=== PATIENT | female | born 1960 | race Caucasian/White ===

== ENCOUNTER → 2017-09-19 10:20 | Outpatient (CLI) | payer MEDICARE, SELFPAY ==
[2017-09-19 11:00] LABS: Basophils % 0.7 % (0.1-2.0); Eosinophils # 0.2 K/mm3 (0.0-0.4); Eosinophils % 3.1 % (0.1-12.0); Hematocrit 38.7 % (37.0-47.0); Hemoglobin 12.8 g/dL (12.2-16.2); Lymphocytes # 0.5 K/mm3 (0.7-4.5); Lymphocytes % 9.8 K/mm3 (10-50); Mean Corpuscular HGB Conc 33.1 g/dL (31.8-35.4); Mean Corpuscular Hemoglobin 29.4 pg (27.0-31.2); Mean Corpuscular Volume 88.7 fl (81-99); Mean Platelet Volume 8.2 fl (7.4-10.4); Monocytes # 0.3 K/mm3 (0.1-1.0); Monocytes % 5.8 % (1.7-9.3); Neutrophils # 4.3 K/mm3 (1.8-7.8); Neutrophils % 80.6 % (37.0-80.0); Platelet Count 250 K/mm3 (142-424); Red Blood Count 4.37 M/mm3 (4.20-5.40); Red Cell Distribution Width 13.2 % (11.5-17.5); Reticulocyte % (Auto) 2.2 % (0.9-3.2); White Blood Count 5.3 K/mm3 (4.8-10.8)
== END ==
PROVIDERS: PCP Internal Medicine Adolescent Medicine; Visit Provider Internal Medicine
DX: D64.9 Anemia, unspecified (principal)
CPT/HCPCS: 36415; 85025; 85044

== ENCOUNTER → 2017-10-20 08:58 | Outpatient (CLI) | payer MEDICARE, SELFPAY ==
--- NOTE | 2017-10-20 09:51 | US_ITS ---
US abdomen complete HISTORY: Possible cirrhosis ITS.REASON: LUEKOPENIA, ANEMIA ORDERING PHYSICIAN: Jose Miller MD PATIENT AGE: 57 years COMPARISON: None FINDINGS: Study is somewhat limited due to patient's body habitus. The may be of further value if clinically warranted. PANCREAS:Pancreas is poorly demonstrated and may be better evaluated with CT. LIVER:No focal liver lesions demonstrated. Homogeneous echogenicity. No intrahepatic biliary ductal dilatation evident. There is appropriate directional blood flow within the portal vein. RIGHT KIDNEY:Unremarkable. Normal size and echogenicity. No hydronephrosis LEFT KIDNEY:Unremarkable. No hydronephrosis. Normal size and echogenicity. GALLBLADDER:Prior cholecystectomy. No ductal dilatation. Common bile duct is 2 mm AORTA:No evidence of aneurysmal dilatation. SPLEEN:Unremarkable. Normal size and echogenicity ASCITES:None demonstrated. IMPRESSION: Somewhat limited exam. Prior cholecystectomy. No ductal dilatation. Normal direction of portal blood flow with no evidence of portal vein enlargement. No acute finding. Please see above for detail. CT may be of further value if clinically warranted
== END ==
PROVIDERS: Family Provider Internal Medicine Adolescent Medicine; PCP Internal Medicine Adolescent Medicine; Visit Provider Internal Medicine Adolescent Medicine
DX: D72.819 Decreased white blood cell count, unspecified (principal); D64.9 Anemia, unspecified
CPT/HCPCS: 76700

== ENCOUNTER → 2017-11-16 09:25 | Outpatient (CLI) | payer MEDICARE, SELFPAY ==
[2017-11-16 09:50] LABS: Basophils % 0.5 % (0.1-2.0); Eosinophils # 0.2 K/mm3 (0.0-0.4); Hematocrit 38.1 % (37.0-47.0); Hemoglobin 12.5 g/dL (12.2-16.2); Lymphocytes # 0.6 K/mm3 (0.7-4.5); Lymphocytes % 11.4 K/mm3 (10-50); Mean Corpuscular HGB Conc 32.8 g/dL (31.8-35.4); Mean Corpuscular Hemoglobin 30.5 pg (27.0-31.2); Mean Corpuscular Volume 93.1 fl (81-99); Mean Platelet Volume 8.5 fl (7.4-10.4); Monocytes # 0.3 K/mm3 (0.1-1.0); Neutrophils # 3.9 K/mm3 (1.8-7.8); Neutrophils % 78.2 % (37.0-80.0); Platelet Count 242 K/mm3 (142-424); Red Cell Distribution Width 13.3 % (11.5-17.5)
[2017-11-16 09:55] LABS: Alanine Aminotransferase 32 U/L (12-78); Albumin Level 3.8 gm/dL (3.4-5.0); Albumin/Globulin Ratio 1.1 (1.1-1.8); Alkaline Phosphatase 87 U/L (46-116); Anion Gap 10.4 mEq/L (5-15); Aspartate Amino Transferase 15 U/L (15-37); Bilirubin,Direct 0.1 mg/dL (0.0-0.2); Bilirubin,Total 0.6 mg/dL (0.2-1.0); Blood Urea Nitrogen 10 mg/dL (7-18); Carbon Dioxide 30 mmol/L (21.0-32.0); Chloride 102 mmol/L (98-107); Creatinine,Serum 0.83 mg/dL (0.55-1.02); Estimated Glomerular Filt Rate 71 ml/min (>60); GFR (African American) 85 ML/MIN (>60); Globulin 3.6 gm/dl (1.3-3.2); Glucose 151 mg/dL (74-106); Potassium 4.4 mmoL/L (3.5-5.1); Sodium 138 mmol/L (136-145); Total Protein,Serum 7.4 gm/dL (6.4-8.2)
== END ==
PROVIDERS: Visit Provider Psychiatry & Neurology Neurology
DX: G35 Multiple sclerosis (principal)
CPT/HCPCS: 36415; 80053; 80076; 85025; 86480

== ENCOUNTER → 2018-02-02 08:27 | Outpatient (CLI) | payer MEDICARE, SELFPAY ==
[2018-02-02 09:11] LABS: Hemoglobin A1C 7.5 % (0.0-7.0)
[2018-02-02 10:05] LABS: Alanine Aminotransferase 32 U/L (12-78); Alkaline Phosphatase 94 U/L (46-116); Aspartate Amino Transferase 17 U/L (15-37); Bilirubin,Direct 0.2 mg/dL (0.0-0.2); Bilirubin,Indirect 0.4 mg/dL (0.0-0.9); Bilirubin,Total 0.6 mg/dL (0.2-1.0); Chol/HDL Ratio 4.4 (1-3.5); Cholesterol 225 mg/dL (140-200); HDL Cholesterol 51 mg/dL (29-89); LDL Cholesterol 106 mg/dL (0-130); Total Protein,Serum 7.2 gm/dL (6.4-8.2); Triglycerides 340 mg/dL (30-200); VLDL Cholesterol 68 mg/dL (0-40)
[2018-02-03 19:42] LABS: Microalbumin, Urine 4.5 ug/mL (Not Estab.)
== END ==
PROVIDERS: Visit Provider Nurse Practitioner Family
DX: E11.69 Type 2 diabetes mellitus with other specified complication (principal); E78.5 Hyperlipidemia, unspecified; Z01.89 Encounter for other specified special examinations
CPT/HCPCS: 36415; 80061; 80076; 82043; 83036

== ENCOUNTER → 2018-03-08 11:35 | Outpatient (CLI) | payer MEDICARE, SELFPAY ==
[2018-03-08 13:50] LABS: Alanine Aminotransferase 26 U/L (12-78); Albumin Level 3.8 gm/dL (3.4-5.0); Alkaline Phosphatase 90 U/L (46-116); Aspartate Amino Transferase 19 U/L (15-37); Bilirubin,Direct 0.1 mg/dL (0.0-0.2); Bilirubin,Indirect 0.4 mg/dL (0.0-0.9); Bilirubin,Total 0.5 mg/dL (0.2-1.0)
== END ==
PROVIDERS: Visit Provider Psychiatry & Neurology Neurology
DX: Z01.89 Encounter for other specified special examinations (principal)
CPT/HCPCS: 36415; 80076

== ENCOUNTER 2018-04-18 11:28 | Observation (INO) ==
--- NOTE | 2018-04-18 11:52 | Pharmacy Consult Notes ---
[facility] Pharmacy VTE Monitoring - Patient Demographics Admission date: 04/18/18 Report Date: 04/18/18 Time: 11:52 Allergies/Adverse Reactions: Patient Allergies No Known Allergies Allergy (Verified 02/02/18 09:47) - Prophylaxis VTE Prophylaxis Ordered?: Yes Types of VTE Prophylaxis: TEDS Knee High Location of Applied Device: Bilateral Lower Extremeties - VTE Diagnosis Confirmed Treatment or plan recommended: Continue Current Treatment
[2018-04-18 12:04] LABS: Eosinophils # 0.2 K/mm3 (0.0-0.4); Eosinophils % 3.9 % (0.1-12.0); Hematocrit 36.7 % (37.0-47.0); Hemoglobin 12.2 g/dL (12.2-16.2); Lymphocytes # 0.6 K/mm3 (0.7-4.5); Lymphocytes % 13.7 K/mm3 (10-50); Mean Corpuscular HGB Conc 33.4 g/dL (31.8-35.4); Mean Corpuscular Hemoglobin 29.4 pg (27.0-31.2); Mean Corpuscular Volume 88.3 fl (81-99); Mean Platelet Volume 8.1 fl (7.4-10.4); Monocytes # 0.3 K/mm3 (0.1-1.0); Monocytes % 6.6 % (1.7-9.3); Neutrophils % 74.8 % (37.0-80.0); Platelet Count 258 K/mm3 (142-424); Red Blood Count 4.16 M/mm3 (4.20-5.40); Red Cell Distribution Width 13.3 % (11.5-17.5)
--- NOTE | 2018-04-18 12:24 | Consult Report ---
History of Present Illness Consult date: 04/18/18 Requesting physician: Jose Miller Consult reason: chest pain, shortness of breath Chief complaint: CP, SOA Additional Medical History:: 1. History of Cardiac cath, 2003, no significant disease per patient Dilma marques, 04/2014, no ischemia with EF 58%. 2. DM, treated for 15 yrs 3. Multiple Sclerosis, treated for >10 yrs 4. Hyperlipidemia 5. History of anemia 6. Hypertension with diastolic dysfunction by echo, 2013 History of present illness: 58 yo WF with diabetes and multiple sclerosis was admitted for increasing chest pain with associated SOA over the last 6 wks. Symptoms described as a heaviness in the chest that can occur without direct association to activity. Symptoms may last up to 3 hrs and can include bilateral arm numbness. She does relate exertional SOA that may be worse over the last 6 wks. Denies associated nausea, vomiting or diarrhea. She does have occasional diarrhea unrelated to the CP/ SOA. Denies any history of CVA or seizure. Cardiology asked to evaluate. EKG today during chest pain shows NSR without acute EKG changes. [facility] History Medical History: Reports:: Diabetes Mellitus Type 2, Hyperlipidemia, MRSA (2011) Denies:: Cancer, Diabetes Mellitus Type 1 Other Medical History: Reports: Anemia Other Surgeries: Yes: Angiogram, Cholecystectomy, Amputation: No Fractures: No - *Social History Educational Level: Completed High School Smoking Status: Never smoker Alcohol Intake: never Substance Use Type: denies use Occupational Status: disabled Housing: house Household Members: spouse, children - Psychiatric History Expresses thoughts of harming self/others: None Suicide Plan Description: No Plan *Family Hx:: Diabetes, Hyperlipidemia, Heart Attack 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: 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 Meds Home Medications Medication Instructions Recorded Confirmed Type aspirin 81 mg tablet,delayed 81 mg PO QDAY 10/11/17 04/18/18 History release baclofen 20 mg tablet 20 mg PO TID 10/11/17 04/18/18 History bupropion HCl XL 300 mg 24 hr 300 mg PO QAM 10/11/17 04/18/18 History tablet, extended release citalopram 40 mg tablet 40 mg PO QDAY 10/11/17 04/18/18 History gabapentin 800 mg tablet 800 mg PO TID 10/11/17 04/18/18 History metformin 500 mg tablet 500 mg PO BID 10/11/17 04/18/18 History metoprolol tartrate 25 mg tablet 25 mg PO BID 10/11/17 04/18/18 History omeprazole 40 mg capsule,delayed 40 mg PO QDAY 10/11/17 04/18/18 History release simvastatin 20 mg tablet 20 mg PO QAM 10/11/17 04/18/18 History teriflunomide 14 mg tablet 14 mg PO ONCE 02/02/18 04/18/18 History Allergies Allergy/AdvReac Type Severity Reaction Status Date / Time No Known Allergies Allergy Verified 04/18/18 12:11 Review of Systems - *Cardiovascular Reports chest pain, Reports shortness of breath with activity - *Respiratory Reports shortness of breath with activity - *Gastrointestinal Denies abdominal pain - *Genitourinary Denies abnormal periods - *Musculoskeletal Denies joint pain - *Neurologic Denies behavioral changes Exam Vital signs and Labs for Last 24 Hours: Temp Pulse Resp BP Pulse Ox 97.9 F 71 20 132/78 96 04/18/18 11:54 04/18/18 11:54 04/18/18 11:54 04/18/18 11:54 04/18/18 11:54 Laboratory Results - last 24 hr 04/18/18 11:51: WBC 4.0 L, RBC 4.16 L, Hgb 12.2, Hct 36.7 L, MCV 88.3, MCH 29.4 , MCHC 33.4, RDW 13.3, Plt Count 258, MPV 8.1, Neut % (Auto) 74.8, Lymph % (Auto ) 13.7, [place] % (Auto) 6.6, Eos % (Auto) 3.9, Baso % (Auto) 1.0, Neut # (Auto) 3.0, Lymph # (Auto) 0.6 L, [place] # (Auto) 0.3, Eos # (Auto) 0.2, Baso # (Auto) 0.0 04/18/18 11:51: B-Natriuretic Peptide 90 I & O for Last 24 hours: Intake & Output 04/16/18 04/17/18 04/18/18 04/19/18 11:59 11:59 11:59 11:59 Weight 226 lb 9 oz - *Routine Neck Exam Absent: JVD, carotid bruit - *Routine Respiratory Exam Present: CTA bilaterally. Absent: rhonchi, wheezes - *Routine Cardiovascular Exam Present: RRR. Absent: murmur, gallop, rubs - *Routine Extremities Exam Absent: edema - *Routine Neurological Exam Present: alert, oriented X3, moving all extremities Assessment and Plan (1) Chest pain Status: Acute Category: Medical Code(s): R07.9 - Chest pain, unspecified (2) SOBOE (shortness of breath on exertion) Status: Acute Category: Medical Code(s): R06.02 - Shortness of breath (3) Diabetes Status: Acute Category: Medical Code(s): E11.9 - Type 2 diabetes mellitus without complications (4) Multiple sclerosis Status: Acute Category: Medical Code(s): G35 - Multiple sclerosis (5) Diastolic dysfunction without heart failure Status: Acute Category: Medical Code(s): I51.89 - Other ill-defined heart diseases - Assessment and plan all Dx Assessment and Plan for all problems:: 1. Chest pain in diabetic with normal EKG. BK score of 3 (recurrent chest pain , Daily ASA use, cardiac risk factors). 2. Will obtain serial cardiac enzymes, echo and continue beta megan along with ASA. 3. Add norvasc 5 mg daily for anti-anginal property. 4. Will schedule for lexiscan myoview in AM unless troponins return elevated then would proceed with cardiac cath.
[2018-04-18 13:44] LABS: Anion Gap 11.2 mEq/L (5-15); Blood Urea Nitrogen 11 mg/dL (7-18); Calcium 9.9 mg/dL (8.5-10.1); Carbon Dioxide 30 mmol/L (21.0-32.0); Chloride 102 mmol/L (98-107); Chol/HDL Ratio 4.6 (1-3.5); Cholesterol 227 mg/dL (140-200); Glucose 153 mg/dL (74-106); HDL Cholesterol 49 mg/dL (29-89); LDL Cholesterol 108 mg/dL (0-130); Potassium 4.2 mmoL/L (3.5-5.1); Sodium 139 mmol/L (136-145); Triglycerides 349 mg/dL (30-200); VLDL Cholesterol 70 mg/dL (0-40)
--- NOTE | 2018-04-18 13:47 | History & Physical Report ---
*Admission Date: 04/18/18 *Chief complaint: Chest pressure/pain *History of present illness: 58-year-old white female with significant cardiac risk factors including diabetes, hyperlipidemia and obesity who presented to my office with a chief complaint of chest pressure and feeling of a regular pulse rate over the past couple of weeks. In the office she complained of increasing shortness of air with exertion as well as intermittent somewhat atypical chest pressure. EKG was nondiagnostic but given her increasing symptomatology and second risk factors as well as her history of coronary atherosclerosis she was admitted to hospital for rule out [place] and cardiology consultation. [facility] History I have reviewed the patient's past medical history: Yes Medical History: Reports:: Diabetes Mellitus Type 2, Hyperlipidemia, MRSA (2011) Denies:: Cancer, Diabetes Mellitus Type 1 Other Medical History: Reports: Anemia Other Surgeries: Yes: Angiogram, Cholecystectomy, Amputation: No Fractures: No - *Social History Educational Level: Completed High School Smoking Status: Never smoker Alcohol Intake: never Substance Use Type: denies use Occupational Status: disabled Housing: house Household Members: spouse, children - Psychiatric History Expresses thoughts of harming self/others: None Suicide Plan Description: No Plan *Family Hx:: Diabetes, Hyperlipidemia, Heart Attack [employer] history: Ectopic Review of Systems - Review of Systems Review of systems:: pertinent systems reviewed and negative unless documented below - *Neurologic Denies behavioral changes Meds Home Medications Medication Instructions Recorded Confirmed Type aspirin 81 mg tablet,delayed 81 mg PO QDAY 10/11/17 04/18/18 History release baclofen 20 mg tablet 20 mg PO TID 10/11/17 04/18/18 History bupropion HCl XL 300 mg 24 hr 300 mg PO QAM 10/11/17 04/18/18 History tablet, extended release citalopram 40 mg tablet 40 mg PO QDAY 10/11/17 04/18/18 History gabapentin 800 mg tablet 800 mg PO TID 10/11/17 04/18/18 History metformin 500 mg tablet 500 mg PO BID 10/11/17 04/18/18 History metoprolol tartrate 25 mg tablet 25 mg PO BID 10/11/17 04/18/18 History omeprazole 40 mg capsule,delayed 40 mg PO QDAY 10/11/17 04/18/18 History release simvastatin 20 mg tablet 20 mg PO QAM 10/11/17 04/18/18 History teriflunomide 14 mg tablet 14 mg PO ONCE 02/02/18 04/18/18 History Allergies Allergy/AdvReac Type Severity Reaction Status Date / Time No Known Allergies Allergy Verified 04/18/18 12:11 Exam Vital signs and Labs for Last 24 Hours: Temp Pulse Resp BP Pulse Ox 97.9 F 71 20 132/78 96 04/18/18 11:54 04/18/18 11:54 04/18/18 11:54 04/18/18 11:54 04/18/18 11:54 Laboratory Results - last 24 hr 04/18/18 11:51: WBC 4.0 L, RBC 4.16 L, Hgb 12.2, Hct 36.7 L, MCV 88.3, MCH 29.4 , MCHC 33.4, RDW 13.3, Plt Count 258, MPV 8.1, Neut % (Auto) 74.8, Lymph % (Auto ) 13.7, [place] % (Auto) 6.6, Eos % (Auto) 3.9, Baso % (Auto) 1.0, Neut # (Auto) 3.0, Lymph # (Auto) 0.6 L, [place] # (Auto) 0.3, Eos # (Auto) 0.2, Baso # (Auto) 0.0 04/18/18 11:51: B-Natriuretic Peptide 90 I & O for Last 24 hours: Intake & Output 04/16/18 04/17/18 04/18/18 04/19/18 11:59 11:59 11:59 11:59 Weight 226 lb 9 oz - Constitutional no acute distress, obese - *Routine HEENT Exam Head: Present: normocephalic Eye: Present: EOMI, PERRL ENT: Present: mucous membranes moist, nares patent, TM's clear bilaterally - *Routine Neck Exam Present: supple. Absent: JVD, carotid bruit, thyromegaly - *Routine Respiratory Exam Present: CTA bilaterally. Absent: accessory muscle use, decreased breath sounds , prolonged expiratory phase - *Routine Cardiovascular Exam Present: RRR, Normal S1, Normal S2. Absent: murmur - *Routine Abdominal Exam Present: soft, normoactive bowel sounds - *Routine Extremities Exam Present: full ROM, pulses intact. Absent: cyanosis, clubbing, edema - *Routine Neurological Exam Present: alert, oriented X3, CN II-XII intact, moving all extremities, hearing grossly intact H&P: Result - Labs Labs: Short CBC 04/18/18 Range/Units 11:51 WBC 4.0 L (4.8-10.8) K/mm3 Hgb 12.2 (12.2-16.2) g/dL Hct 36.7 L (37.0-47.0) % Plt Count 258 (142-424) K/mm3 Assessment and Plan (1) Chest pain Current visit: Yes Status: Acute Category: Medical Code(s): R07.9 - Chest pain, unspecified (2) SOBOE (shortness of breath on exertion) Current visit: Yes Status: Acute Category: Medical Code(s): R06.02 - Shortness of breath (3) Diabetes Current visit: Yes Status: Acute Category: Medical Code(s): E11.9 - Type 2 diabetes mellitus without complications (4) Multiple sclerosis Current visit: Yes Status: Acute Category: Medical Code(s): G35 - Multiple sclerosis (5) Diastolic dysfunction without heart failure Current visit: Yes Status: Acute Category: Medical Code(s): I51.89 - Other ill-defined heart diseases - Assessment and plan all Dx Assessment and Plan for all problems:: Admit to hospital, rule out for [place], follow-up with cardiology. Anticipate stress testing.
--- NOTE | 2018-04-19 14:20 | Progress Note ---
Internal Medicine - PN: Subj *Date: 04/19/18 *Time: 12:45 Interval history: Patient continues to have intermittent chest pressure. ALert and oriented x3. Rate and rhythm regular. No LE edema. No JVD. Abdomen soft and nontender. Anterior lung mcelroy clear. Exam Vital signs and Labs for Last 24 Hours: Temp Pulse Resp BP Pulse Ox 98.0 F 77 16 171/78 97 04/19/18 12:00 04/19/18 12:00 04/19/18 12:00 04/19/18 12:00 04/19/18 12:00 Laboratory Results - last 24 hr 04/18/18 15:04: Troponin I < 0.02 04/18/18 17:50: Troponin I < 0.02 I & O for Last 24 hours: Intake & Output 04/17/18 04/18/18 04/19/18 04/20/18 11:59 11:59 11:59 11:59 Intake Total 1140 / 1140 Balance 1140 / 1140 Weight 226 lb 9 oz 222 lb 1 oz Assessment and Plan (1) Chest pain Current visit: Yes Status: Acute Category: Medical Code(s): R07.9 - Chest pain, unspecified (2) SOBOE (shortness of breath on exertion) Current visit: Yes Status: Acute Category: Medical Code(s): R06.02 - Shortness of breath (3) Diabetes Current visit: Yes Status: Acute Category: Medical Code(s): E11.9 - Type 2 diabetes mellitus without complications (4) Multiple sclerosis Current visit: Yes Status: Acute Category: Medical Code(s): G35 - Multiple sclerosis (5) Diastolic dysfunction without heart failure Current visit: Yes Status: Acute Category: Medical Code(s): I51.89 - Other ill-defined heart diseases - Assessment and plan all Dx Assessment and Plan for all problems:: GXT was abnormal. Plan for C tomorrow.
--- NOTE | 2018-04-19 14:43 | Progress Note ---
Subjective Date: 04/19/18 Time: 14:40 Principal diagnosis: chest pain Interval history: No chest pain overnight. Junior myoview abnormal with LV dilatation during stress without ischemia. Discussed results and recommendation for [facility] with patient and . All questions answered and pt agrees to proceed. Exam Vital signs and Labs for Last 24 Hours: Temp Pulse Resp BP Pulse Ox 98.0 F 77 16 171/78 97 04/19/18 12:00 04/19/18 12:00 04/19/18 12:00 04/19/18 12:00 04/19/18 12:00 Laboratory Results - last 24 hr 04/18/18 15:04: Troponin I < 0.02 04/18/18 17:50: Troponin I < 0.02 I & O for Last 24 hours: Intake & Output 04/17/18 04/18/18 04/19/18 04/20/18 11:59 11:59 11:59 11:59 Intake Total 1140 / 1140 Balance 1140 / 1140 Weight 226 lb 9 oz 222 lb 1 oz - *Routine Respiratory Exam Present: CTA bilaterally - *Routine Cardiovascular Exam Present: RRR Progress Note: A&P (1) Chest pain Status: Acute Current Visit: Yes (2) SOBOE (shortness of breath on exertion) Status: Acute Current Visit: Yes (3) Diabetes Status: Acute Current Visit: Yes (4) Multiple sclerosis Status: Acute Current Visit: Yes (5) Diastolic dysfunction without heart failure Status: Acute Current Visit: Yes Assessment and Plan for All Diagnoses:: LHC tomorrow. Some nausea after stress. Will give IV Zofran.
--- NOTE | 2018-04-19 15:08 | Cardiology Report ---
PROCEDURE: 2-D M-mode and color Doppler study INDICATIONS FOR THE TEST: Chest pain X COPD Heart Murmur Tobacco Smoking Palpitations Fatigue Syncope Edema HypertensionXXDiabetes MellitusX Rheumatic Fever SOB DOEXObesity HyperlipidemiaX Family History HDX Additional History PATIENT INFORMATION HEIGHT: 71 WEIGHT:226 GENDER: Female B/P:132/78 2-D/M-MODE INTERPRETATION: 2-D MEASUREMENTS OBSERVED VALUES IN CMS Right Ventricular Dimension (RVDd) 3.1 Interventricular Septum (Thickness)(IVsd) 1.1 Left Ventricular Internal Dimensions(LVIDd) 3.6 Left Ventricular Posterior Wall (Thickness)(LVPWd) 1.1 Aortic Root 3.0 Aortic Cusp Separation 2.3 Left Atrial Dimensions (LAD) 3.8 2D 1. Technically difficult study because of the patient's factor and poor acoustic windows 2. Left atrium is mildly enlarged, left ventricle is normal size, there is mild concentric left ventricular hypertrophy, visually estimated ejection fraction 55% with no obvious regional wall motion abnormality. 3. The right atrium and right ventricle are mildly enlarged with normal contractility. 4. The aortic valve, mitral and tricuspid valvular grossly normal. 5. The pulmonic valve is poorly visualized. 6. No significant pericardial effusion noted. DOPPLER INTERROGATION: Doppler interrogation of the aortic, mitral and tricuspid valvular presence of mild mitral and tricuspid regurgitation, tricuspid and jet velocity is insufficient for acquisition of the right ventricular systolic pressure, diastolic parameters are inconclusive. CONCLUSION: 1. Mildly enlarged left atrium, normal left ventricular size, mild concentric left ventricular hypertrophy, visually estimated ejection fraction 55% with no obvious regional wall motion abnormality, diastolic parameters are inconclusive. 2. Mildly enlarged right ventricle with normal contractility. 3. Mild mitral and tricuspid regurgitation 4. No significant pericardial effusion noted.
--- NOTE | 2018-04-20 08:12 | Progress Note ---
Internal Medicine - PN: Subj *Date: 04/20/18 *Time: 08:10 Interval history: Slept well, no problems overnight, no chest pain. Exam Vital signs and Labs for Last 24 Hours: Temp Pulse Resp BP Pulse Ox 98.1 F 73 18 114/65 95 04/20/18 07:39 04/20/18 07:39 04/20/18 07:39 04/20/18 07:39 04/20/18 07:39 I & O for Last 24 hours: Intake & Output 04/17/18 04/18/18 04/19/18 04/20/18 11:59 11:59 11:59 11:59 Intake Total 1140 / 1140 1465 / 1465 Output Total 650 / 650 Balance 1140 / 1140 815 / 815 Weight 226 lb 9 oz 222 lb 1 oz 217 lb 6 oz - Constitutional no acute distress, obese - *Routine HEENT Exam Head: Present: normocephalic Eye: Present: EOMI ENT: Present: mucous membranes moist - Routine Chest/Breast/Axilla Exam Breast: Absent: tenderness - *Routine Respiratory Exam Present: CTA bilaterally. Absent: accessory muscle use - *Routine Cardiovascular Exam Present: RRR, Normal S1, Normal S2. Absent: murmur - *Routine Abdominal Exam Present: soft, normoactive bowel sounds. Absent: tenderness - *Routine Extremities Exam Present: full ROM. Absent: cyanosis, clubbing, edema Assessment and Plan (1) Chest pain Current visit: Yes Status: Acute Category: Medical Code(s): R07.9 - Chest pain, unspecified (2) SOBOE (shortness of breath on exertion) Current visit: Yes Status: Acute Category: Medical Code(s): R06.02 - Shortness of breath (3) Diabetes Current visit: Yes Status: Acute Category: Medical Code(s): E11.9 - Type 2 diabetes mellitus without complications (4) Multiple sclerosis Current visit: Yes Status: Acute Category: Medical Code(s): G35 - Multiple sclerosis (5) Diastolic dysfunction without heart failure Current visit: Yes Status: Acute Category: Medical Code(s): I51.89 - Other ill-defined heart diseases - Assessment and plan all Dx Assessment and Plan for all problems:: Heart catheterization today. Probable discharge this afternoon. Palpitation workup is negative so far. Consider discharge in with 48 hour Holter monitor
--- NOTE | 2018-04-20 13:08 | Discharge Summary ---
General - General Admission date:: 04/18/18 Discharge date: 04/20/18 HPI HPI: 58-year-old white female with significant cardiac risk factors including diabetes, hyperlipidemia and obesity who presented to my office with a chief complaint of chest pressure and feeling of a regular pulse rate over the past couple of weeks. In the office she complained of increasing shortness of air with exertion as well as intermittent somewhat atypical chest pressure. EKG was nondiagnostic but given her increasing symptomatology and second risk factors as well as her history of coronary atherosclerosis she was admitted to hospital for rule out [place] and cardiology consultation. Hospital Course Hospital Course: Patient was admitted to hospital, ruled out for myocardial infarction. EKG and echocardiogram were nondiagnostic, however stress test showed equivocal readings consistent with "balanced ischemia." Because of this finding as well as her significant risk factor she would subjected to left heart catheterization which fortunately showed no evidence of amenable cardiac disease to stenting. She will be discharged home today with post-cath instructions and her regular medications. Because of her history of palpitations we will send her home with a 48 hour Holter monitor and follow-up in my office as scheduled. Objective Vital signs: Temp Pulse Resp BP Pulse Ox 98.1 F 71 16 122/85 98 04/20/18 12:25 04/20/18 12:25 04/20/18 12:25 04/20/18 12:25 04/20/18 12:25 - *Routine HEENT Exam Head: Present: normocephalic, atraumatic Eye: Present: EOMI, PERRL ENT: Present: mucous membranes moist - *Routine Respiratory Exam Present: CTA bilaterally. Absent: accessory muscle use, decreased breath sounds - *Routine Cardiovascular Exam Present: RRR, Normal S1, Normal S2. Absent: murmur - *Routine Abdominal Exam Present: soft, normoactive bowel sounds - *Routine Extremities Exam Present: full ROM. Absent: cyanosis, clubbing, edema DS: Diagnosis - Discharge Diagnosis (1) Chest pain Status: Resolved (2) SOBOE (shortness of breath on exertion) Status: Chronic (3) Diabetes Status: Chronic (4) Multiple sclerosis Status: Chronic (5) Diastolic dysfunction without heart failure Status: Chronic (6) Palpitation Status: Acute (7) Obesity (BMI 30.0-34.9) Status: Chronic Discharge Plan - Patient Discharge Instructions ACTIVITY: Continue current activity DIET: continue same diet, diabetic diet Additional Instructions: 48 hour Holter monitor on discharge, diagnosis palpitations - Follow up Plan Follow up with: Geovanna Wolfe APRN [Nurse Practitioner] - 04/26/18 Disposition: Home, Self-Senior Care Medications: Home Medications Medication Instructions Recorded Confirmed Type aspirin 81 mg tablet,delayed 81 mg PO DAILY 10/11/17 04/19/18 History release baclofen 20 mg tablet 20 mg PO TID 10/11/17 04/18/18 History bupropion HCl XL 300 mg 24 hr 300 mg PO QAM 10/11/17 04/18/18 History tablet, extended release citalopram 40 mg tablet 40 mg PO DAILY 10/11/17 04/19/18 History gabapentin 800 mg tablet 800 mg PO TID 10/11/17 04/18/18 History metoprolol tartrate 25 mg tablet 25 mg PO BID 10/11/17 04/18/18 History omeprazole 40 mg capsule,delayed 40 mg PO DAILY 10/11/17 04/19/18 History release simvastatin 20 mg tablet 20 mg PO QAM 10/11/17 04/18/18 History teriflunomide 14 mg tablet 14 mg PO DAILY 02/02/18 04/19/18 History Ascorbate Calcium [Vitamin C] 1,000 mg PO DAILY 04/19/18 04/19/18 History Biotin 5,000 mcg SL DAILY 04/19/18 04/19/18 History Cholecalciferol (Vitamin D3) 1,000 unit PO DAILY 04/19/18 04/19/18 History [Vitamin D3 1,000 Unit Cap] Cyanocobalamin (Vitamin B-12) 1,000 mcg PO DAILY 04/19/18 04/19/18 History [Vitamin B-12 1000mcg Tablet] Ferrous Sulfate [Ferrous Sulfate 325 mg PO DAILY 04/19/18 04/19/18 History 325mg Tablet] Folic Acid/Mv,Iron,Min [Centrum 1 each PO DAILY 04/19/18 04/19/18 History Chewable Tablet] Metformin HCl 1,000 mg PO BID 04/19/18 04/19/18 History Modafinil 100 mg PO DAILY 04/19/18 04/19/18 History Prescriptions/Medication Reconciliation: Continue metoprolol tartrate 25 mg tablet 25 mg PO BID omeprazole 40 mg capsule,delayed release 40 mg PO DAILY bupropion HCl XL 300 mg 24 hr tablet, extended release 300 mg PO QAM citalopram 40 mg tablet 40 mg PO DAILY baclofen 20 mg tablet 20 mg PO TID gabapentin 800 mg tablet 800 mg PO TID aspirin 81 mg tablet,delayed release 81 mg PO DAILY simvastatin 20 mg tablet 20 mg PO QAM teriflunomide 14 mg tablet 14 mg PO DAILY Ascorbate Calcium [Vitamin C] 1,000 mg PO DAILY Biotin 5,000 mcg SL DAILY Cholecalciferol (Vitamin D3) [Vitamin D3 1,000 Unit Cap] 1,000 unit PO DAILY Cyanocobalamin (Vitamin B-12) [Vitamin B-12 1000mcg Tablet] 1,000 mcg PO DAILY Ferrous Sulfate [Ferrous Sulfate 325mg Tablet] 325 mg PO DAILY Folic Acid/Mv,Iron,Min [Centrum Chewable Tablet] 1 each PO DAILY Metformin HCl 1,000 mg PO BID Modafinil 100 mg PO DAILY
== END 2018-04-20 15:09 | disposition home or self-care (01) ==
LOC: 2ND
PROVIDERS: ADMIT Internal Medicine Adolescent Medicine; ATTEND Internal Medicine Adolescent Medicine

== ENCOUNTER → 2018-05-10 13:12 | Outpatient (CLI) | payer MEDICARE, SELFPAY ==
--- NOTE | 2018-05-10 13:14 | CT_ITS ---
CT chest wo/w con HISTORY: Chest pain, chest heaviness ITS.REASON: chest pain ORDERING PHYSICIAN: Rylan Wills MD PATIENT AGE: 58 years COMPARISON: None Technique: Axial images obtained without and with contrast. 75 mL's of Isovue-370 . Sagittal and coronal reformats. All CT scans at the facility use one or more dose reduction, viz: automated exposure control, ma/kV adjustment per patient size (including targeted exams where dose is matched to indication, i.e. head), or iterative reconstruction technique. FINDINGS: No mediastinal or hilar mass or adenopathy. Unenhanced images demonstrate Coronary artery calcifications . No evidence of aortic aneurysm or dissection. No evidence of pulmonary embolus. A calcified granuloma is present in the right upper lobe. No suspicious pulmonary nodules. No infiltrates or effusions. The great vessels have an unremarkable appearance as does the proximal aspect of the celiac and superior mesenteric arteries. Upper abdominal images show prior gastric sleeve surgery of the stomach. There are degenerative changes of the lower thoracic spine. No acute bony anomalies. IMPRESSION: Essentially negative CT chest without and with contrast aside from coronary artery calcifications
[2018-05-10 13:53] LABS: Blood Urea Nitrogen 9 mg/dL (7-18); Creatinine,Serum 0.92 mg/dL (0.55-1.02); Estimated Glomerular Filt Rate 62 ml/min (>60); GFR (African American) 76 ML/MIN (>60)
--- NOTE | 2018-05-10 14:14 | HMH.ITSHM ---
MODAFINNIL AUBAGIO,OMEPRAZOLE,GABAPENTIN,METFORMIN BLACLOFEN METOPROLOL,BUPRION XL,CITALORARM ASPIRIN,MULTI VIT IRON BIOTIN TRIPLE FLESX
== END ==
PROVIDERS: Family Provider Internal Medicine Adolescent Medicine; PCP Internal Medicine Adolescent Medicine; Visit Provider Internal Medicine
DX: E11.9 Type 2 diabetes mellitus without complications (principal); E66.9 Obesity, unspecified; G35 Multiple sclerosis; R00.2 Palpitations; R06.00 Dyspnea, unspecified; R07.89 Other chest pain
CPT/HCPCS: 36415; 71270; 82565; 84520; Q9967

== ENCOUNTER 2018-07-23 09:52 | Outpatient (CLI) | payer MEDICARE, SELFPAY ==
[2018-07-23 09:56] VITALS: BMI 31.5
[2018-07-23 10:34] VITALS: BP 125/85; PULSE 63; RESP 18; TEMP 36.6; O2SAT 99
[2018-07-23 11:04] VITALS: BP 122/78; PULSE 68; RESP 18; O2SAT 98
[2018-07-23 11:15] VITALS: BP 123/79; PULSE 64; RESP 18; O2SAT 98
== END 2018-07-23 11:15 | disposition home or self-care (01) ==
LOC: INF 09:52
PROVIDERS: Visit Provider Psychiatry & Neurology Neurology
DX: G35 Multiple sclerosis (principal)
CPT/HCPCS: 96365

== ENCOUNTER 2018-07-24 10:00 | Outpatient (CLI) | payer MEDICARE, SELFPAY ==
[2018-07-24 10:00] VITALS: BP 128/69; PULSE 68; RESP 20; TEMP 36.9; O2SAT 96
[2018-07-24 10:50] VITALS: BP 126/74; PULSE 68; RESP 20; TEMP 36.9; O2SAT 96
== END 2018-07-24 10:50 | disposition home or self-care (01) ==
LOC: INF 10:00
PROVIDERS: Visit Provider Psychiatry & Neurology Neurology
DX: G35 Multiple sclerosis (principal)
CPT/HCPCS: 96365

== ENCOUNTER 2018-07-25 09:38 | Outpatient (CLI) | payer MEDICARE, SELFPAY ==
[2018-07-25 10:00] VITALS: BP 155/66; PULSE 66; RESP 19; TEMP 36.3; O2SAT 99
[2018-07-25 10:30] VITALS: BP 171/88; PULSE 68; RESP 18
[2018-07-25 10:45] VITALS: BP 182/88; PULSE 68; RESP 18
== END 2018-07-25 10:45 | disposition home or self-care (01) ==
LOC: INF 09:38
PROVIDERS: Visit Provider Psychiatry & Neurology Neurology
DX: G35 Multiple sclerosis (principal)
CPT/HCPCS: 96365

== ENCOUNTER → 2019-02-12 09:48 | Outpatient (CLI) | payer MEDICARE, SELFPAY ==
[2019-02-12 11:02] LABS: Basophils % 0.8 % (0.1-2.0); Eosinophils # 0.1 K/mm3 (0.0-0.4); Eosinophils % 3.2 % (0.1-12.0); Hematocrit 36.5 % (37.0-47.0); Hemoglobin 12.4 g/dL (12.2-16.2); Lymphocytes # 0.4 K/mm3 (0.7-4.5); Lymphocytes % 13.6 % (10-50); Mean Corpuscular HGB Conc 33.9 g/dL (31.8-35.4); Mean Corpuscular Hemoglobin 29.7 pg (27.0-31.2); Mean Corpuscular Volume 87.6 fl (81-99); Mean Platelet Volume 8.1 fl (7.4-10.4); Monocytes # 0.2 K/mm3 (0.1-1.0); Monocytes % 5.3 % (1.7-9.3); Neutrophils # 2.4 K/mm3 (1.8-7.8); Neutrophils % 77.1 % (37.0-80.0); Platelet Count 236 K/mm3 (142-424); Red Blood Count 4.17 M/mm3 (4.20-5.40); Red Cell Distribution Width 12.8 % (11.5-17.5); White Blood Count 3.1 K/mm3 (4.8-10.8)
[2019-02-12 11:50] LABS: Alanine Aminotransferase 25 U/L (12-78); Albumin Level 3.7 gm/dL (3.4-5.0); Albumin/Globulin Ratio 1.3 (1.1-1.8); Alkaline Phosphatase 84 U/L (46-116); Anion Gap 12.9 mEq/L (5-15); Aspartate Amino Transferase 14 U/L (15-37); Bilirubin,Total 0.6 mg/dL (0.2-1.0); Blood Urea Nitrogen 12 mg/dL (7-18); Calcium 9.2 mg/dL (8.5-10.1); Carbon Dioxide 29 mmol/L (21.0-32.0); Chloride 106 mmol/L (98-107); Chol/HDL Ratio 6.3 (1-3.5); Cholesterol 282 mg/dL (140-200); Estimated Glomerular Filt Rate 73 ml/min (>60); GFR (African American) 89 ML/MIN (>60); Globulin 2.9 gm/dl (1.3-3.2); Glucose 164 mg/dL (74-106); HDL Cholesterol 45 mg/dL (29-89); LDL Cholesterol 186 mg/dL (0-130); Potassium 4.9 mmoL/L (3.5-5.1); Sodium 143 mmol/L (136-145); Total Protein,Serum 6.6 gm/dL (6.4-8.2); Triglycerides 255 mg/dL (30-200); VLDL Cholesterol 51 mg/dL (0-40)
[2019-02-12 12:38] LABS: Hemoglobin A1C 6.7 % (0.0-7.0)
[2019-02-15 06:24] LABS: Vitamin B12 >2000 pg/mL (232-1245); Vitamin D 25 Hydroxy 94.8 ng/mL (30.0-100.0)
== END ==
PROVIDERS: Visit Provider Nurse Practitioner Family
DX: E11.69 Type 2 diabetes mellitus with other specified complication (principal); E78.5 Hyperlipidemia, unspecified; E53.8 Deficiency of other specified B group vitamins; E55.9 Vitamin D deficiency, unspecified; Z79.84 Long term (current) use of oral hypoglycemic drugs
CPT/HCPCS: 36415; 80053; 80061; 82607; 82652; 83036; 85025

== ENCOUNTER → 2019-04-12 08:46 | Outpatient (CLI) | payer MEDICARE, SELFPAY ==
--- NOTE | 2019-04-12 08:50 | MM_ITS ---
MM Dig screening mamm BI w/CAD CAD Screening COMPARISON: Digital mammograms with CAD 03/29/2016 and 03/28/2017 INDICATION: There is a history of breast cancer patient maternal great-grandmother diagnosed after menopause TECHNIQUE: Standard CC and MLO images were obtained. R2 CAD reviewed. FINDINGS: The breasts are composed primarily of fat with minimal scattered fibro glandular densities in each breast. There are multiple microcalcifications in each breast most of which appear to be cutaneous. There is no suspicious lesion and there are no suspicious microcalcifications. IMPRESSION: Fibrofatty parenchyma with no suspicious lesion seen BI-RADS Category: 2 Benign Finding(s) RECOMMENDED FOLLOW-UP: 1YR - 1 YEAR FOLLOW-UP (A letter has been sent to the patient regarding results of the study.)
--- NOTE | 2019-04-12 08:50 | XR_ITS ---
XR DEXA axial skeleton HISTORY: ITS.REASON: ASYMPTOMATIC POSTMENOPAUSAL STATE ORDERING PHYSICIAN: Linda Fraire APRN PATIENT AGE: 58 years COMPARISON: None FINDINGS: The BMD measured at the left femoral neck is 1.209 g/cm squared with a T score of 1.2. This is considered normal according to the World Health Organization criteria. Fracture risk is low. IMPRESSION: Normal bone density. Suggest follow-up exam April 2021.
== END ==
PROVIDERS: PCP Internal Medicine Adolescent Medicine; Visit Provider Nurse Practitioner Family
DX: Z12.31 Encounter for screening mammogram for malignant neoplasm of breast (principal); Z78.0 Asymptomatic menopausal state
CPT/HCPCS: 77067; 77080

== ENCOUNTER → 2020-02-14 16:22 | Outpatient (CLI) | payer MEDICARE, SELFPAY ==
[2020-02-14 16:54] LABS: Basophils # 0.1 K/mm3 (0-0.2); Basophils % 1.1 % (0.1-2.0); Eosinophils # 0.2 K/mm3 (0.0-0.4); Eosinophils % 4.5 % (0.1-12.0); Hematocrit 36.8 % (37.0-47.0); Hemoglobin 12.9 g/dL (12.2-16.2); Lymphocytes # 0.7 K/mm3 (0.7-4.5); Lymphocytes % 16.5 % (10-50); Mean Corpuscular HGB Conc 35.1 g/dL (31.8-35.4); Mean Corpuscular Hemoglobin 31.1 pg (27.0-31.2); Mean Corpuscular Volume 88.6 fl (81-99); Mean Platelet Volume 8.9 fl (7.4-10.4); Monocytes # 0.3 K/mm3 (0.1-1.0); Monocytes % 6.3 % (1.7-9.3); Neutrophils % 71.7 % (37.0-80.0); Platelet Count 201 K/mm3 (142-424); Red Blood Count 4.16 M/mm3 (4.20-5.40); Red Cell Distribution Width 13.4 % (11.5-17.5); White Blood Count 4.2 K/mm3 (4.8-10.8)
[2020-02-14 17:05] LABS: Chloride 106 mmol/L (98-107); Potassium 4.7 mmoL/L (3.5-5.1); Sodium 141 mmol/L (136-145)
[2020-02-14 17:07] LABS: Blood Urea Nitrogen 12 mg/dl (7-17); Estimated Glomerular Filt Rate 85 ml/min (>60); GFR (African American) 103 ML/MIN (>60)
[2020-02-14 17:08] LABS: Alanine Aminotransferase 32 U/L (12-78); Albumin Level 4.2 g/dl (3.5-5.0); Albumin/Globulin Ratio 1.5 (1.1-1.8); Alkaline Phosphatase 76 U/L (38-126); Anion Gap 8.7 mEq/L (5-15); Aspartate Amino Transferase 32 U/L (14-36); Bilirubin,Total 0.4 mg/dl (0.2-1.3); Calcium 9.8 mg/dl (8.4-10.2); Carbon Dioxide 31 mmol/L (22.0-30.0); Globulin 2.8 g/dL (1.3-3.2); Glucose 149 mg/dl (74-100); Lipase 26 U/L (23-300)
[2020-02-18 15:36] LABS: H. pylori Breath Test Negative (Negative)
== END ==
PROVIDERS: Visit Provider Internal Medicine Adolescent Medicine
DX: E11.69 Type 2 diabetes mellitus with other specified complication (principal); E78.5 Hyperlipidemia, unspecified; Z79.84 Long term (current) use of oral hypoglycemic drugs; Z79.899 Other long term (current) drug therapy
CPT/HCPCS: 36415; 80053; 83013; 83690; 85025

== ENCOUNTER → 2020-10-09 09:48 | Outpatient (CLI) | payer MEDICARE, SELFPAY ==
--- NOTE | 2020-10-09 | CA_ITS ---
APPROVED REPORT EXAM: Comprehensive 2D, Doppler, and color-flow Echocardiogram Housing Case Manager: Marilia Woodward CRT Ht: 5 ft 11 in Wt: 222lbs BSA: 2.20 BP: 139/72 mmHg Indications: Chest Pain, Shortness of Breath, Obesity, Peripheral Edema, Hyperlipidemia, Hypertension/HDD 2D Dimensions LVOT 2.08 cm (M/F) 1.5-2.5 M-Mode Dimensions RVDd 3.69 cm (0.9-2.6) LA Diam 3.69 cm (1.9-4.0) LVDd 4.94 cm (3.5-5.7) Ao Diam 3.35 cm (2.0-3.7) LVDs 3.00 cm (3.5-5.7) IVSd 1.37 cm (0.6-1.1) PWd 0.72 cm (0.6-1.1) EF (Teich) 69.60% FS 39.30% EDV (Teich) 115.00 mL ESV (Teich) 35.00 mL LV Diastology E Decel Time 247.00 (160-240 msec) E/A Ratio 0.83 MED E' 7.10 (< 7 cm/sec) MED A' 10.20 cm/s E'/MED E' Ratio 7.24 (>14) LAT E' 9.30 (<10 cm/sec) LAT A' 9.30 cm/s E/LAT E' Ratio 5.53 (>14) Aortic Valve AO Peak GR. 3.70 mmHg Mitral Valve MV A Velocity 62.00 (40-130 cm/s) E/A Ratio 0.83 MV Decel. Time 247.00 (160-240 ms) Pulmonary Valve PV Peak Velocity 35.00 (50-150 cm/s) Tricuspid Valve TR P. Velocity 255.00 cm/s RAP Estimate 10.00 mmHg RVSP 36.10 mmHg Left Ventricle Left atrium is mildly enlarged, left ventricle is normal size, mild concentric left ventricular hypertrophy, visually estimated ejection fraction 55% with no regional wall motion abnormality, diastolic parameters are inconclusive. Right Ventricle Right atrium and right ventricle are mildly enlarged with normal contractility. Aortic Valve Aortic valve is minimally thickened and fibrosed, there is no aortic stenosis or aortic insufficiency. Mitral Valve Mitral valve is grossly normal, there is mild mitral regurgitation. Tricuspid Valve Tricuspid valve is grossly normal, there is mild tricuspid regurgitation, tricuspid regurgitation jet velocity is inadequate for calculation of the right ventricular systolic pressure. Pulmonic Valve Pulmonic valve is poorly visualized. Great Vessels Aortic root is normal size. Pericardium No significant pericardial effusion noted. Conclusion 1. Mild biatrial enlargement, normal left ventricular size, mild concentric left ventricular hypertrophy, visually estimated ejection fraction 55% with no regional wall motion abnormality, diastolic parameters are inconclusive. 2. Mildly enlarged right ventricle with normal contractility. 3. Thickened and calcified aortic valve without aortic stenosis or aortic insufficiency. 4. Mild mitral and tricuspid regurgitation. 5. No significant pericardial effusion noted. Electronically signed by : Miguel Ángel Loco, 10/09/2020 16:51:08
--- NOTE | 2020-10-09 10:06 | MM_ITS ---
PROCEDURE: MM DIG SCREENING MAMM BI W/CAD Referring Doctor: Jose Miller Patient Age:60Y CLINICAL INDICATION: SCREENING 60-year-old but no hormones, no new complaints. Family history maternal great grandmother with breast cancer. The COMPARISON: MG DIGMAMMS MAMMOGRAM SCREEN-FLOOR INSPECTOR N/C from 08/01/2001 MG DIGMAMMS MAMMOGRAM SCREEN-FLOOR INSPECTOR N/C from 10/07/2009 MG DMSB DIGITAL MAMM-SCREEN BILATERAL from 11/29/2011 MG DMSB DIG MAMM-SCREEN DESTINY from 03/29/2016 MG DMSB DIG MAMM-SCREEN DESTINY W/CAD from 03/28/2017 MG MM DIG SCREENING MAMM BI W/CAD from 04/12/2019 TECHNIQUE: Standard CC and MLO images were obtained. R2 CAD reviewed. Bilateral digital breast tomosynthesis included. FINDINGS: Minimal residual fibroglandular elements. Moderate diffuse fatty replacement. Scattered small punctate calcifications bilaterally appear quite scattered and benign in character. No significant change. No new dominant or suspicious mass. Left breast-no new areas of concern. Stable mammogram. Follow-up 1 year recommended Right breast-no new areas of significant concern Minor area deep lateral breast on CC view reflects overlapping shadow as it dissipates on tomosynthesis views and MLO view IMPRESSION: Overall stable mammogram no significant new areas of concern. Bilateral follow-up 1 year recommended and would be encouraged BI-RAD Category: 2 Benign Finding(s) FOLLOW-UP: 1YR 1 Year Follow-up (A letter has been sent to the patient regarding results of the study.) Dictated by: Law Du MD 10/14/2020 11:58 Law Du MD in [place] 10/14/2020 11:58
[2020-10-09 10:20] LABS: Basophils % 1.1 % (0.1-2.0); Eosinophils # 0.1 K/mm3 (0.0-0.4); Hematocrit 38.4 % (37.0-47.0); Hemoglobin 12.8 g/dL (12.2-16.2); Lymphocytes # 0.5 K/mm3 (0.7-4.5); Lymphocytes % 15.5 % (10-50); Mean Corpuscular HGB Conc 33.2 g/dL (31.8-35.4); Mean Corpuscular Hemoglobin 30.3 pg (27.0-31.2); Mean Corpuscular Volume 91.2 fl (81-99); Mean Platelet Volume 9.2 fl (7.4-10.4); Monocytes # 0.2 K/mm3 (0.1-1.0); Monocytes % 6.4 % (1.7-9.3); Neutrophils # 2.3 K/mm3 (1.8-7.8); Platelet Count 205 K/mm3 (142-424); Red Blood Count 4.21 M/mm3 (4.20-5.40); Red Cell Distribution Width 13.8 % (11.5-17.5); White Blood Count 3.2 K/mm3 (4.8-10.8)
[2020-10-09 10:25] LABS: Creatinine,Urine Random 37 mg/dL (Not Estab.); Hemoglobin A1C 6.7 % (4.0-6.0)
[2020-10-09 10:36] LABS: Alanine Aminotransferase 17 U/L (12-78); Albumin Level 4.3 g/dl (3.5-5.0); Albumin/Globulin Ratio 1.5 (1.1-1.8); Alkaline Phosphatase 67 U/L (38-126); Anion Gap 9.8 mEq/L (5-15); Aspartate Amino Transferase 24 U/L (14-36); Bilirubin,Total 0.5 mg/dl (0.2-1.3); Blood Urea Nitrogen 9 mg/dl (7-17); Calcium 10.2 mg/dl (8.4-10.2); Carbon Dioxide 32 mmol/L (22.0-30.0); Chloride 104 mmol/L (98-107); Cholesterol 206 mg/dl (140-200); Estimated Glomerular Filt Rate 85 ml/min (>60); GFR (African American) 103 ML/MIN (>60); Globulin 2.8 g/dL (1.3-3.2); Glucose 128 mg/dl (74-100); HDL Cholesterol 52 mg/dl (40-60); Potassium 4.8 mmoL/L (3.5-5.1); Sodium 141 mmol/L (136-145); Total Protein,Serum 7.1 g/dl (6.3-8.2); Triglycerides 273 mg/dl (30-150); VLDL Cholesterol 55 mg/dL (0-40)
[2020-10-09 10:47] LABS: Direct LDL Cholesterol 114.78 mg/dL (100-129)
[2020-10-09 10:53] LABS: 25-OH Vitamin D, Total 82.2 ng/mL (30-100)
[2020-10-09 11:06] LABS: Thyroid Stimulating Hormone 0.77 uIU/mL (0.465-4.68)
[2020-10-09 11:39] LABS: Vitamin B12 > 1000 pg/mL (239-931)
== END ==
PROVIDERS: Nurse Practitioner Family; PCP Internal Medicine Adolescent Medicine; Visit Provider Internal Medicine Adolescent Medicine
DX: Z12.31 Encounter for screening mammogram for malignant neoplasm of breast (principal); R06.00 Dyspnea, unspecified; R00.2 Palpitations; E11.69 Type 2 diabetes mellitus with other specified complication; E55.9 Vitamin D deficiency, unspecified; E53.8 Deficiency of other specified B group vitamins; Z79.84 Long term (current) use of oral hypoglycemic drugs
CPT/HCPCS: 36415; 77063; 77067; 80053; 80061; 82306; 82570; 82607; 83036; 83735; 84443; 85025; 93306

== ENCOUNTER → 2020-11-02 09:19 | Outpatient (CLI) | payer MEDICARE, SELFPAY ==
--- NOTE | 2020-11-02 09:28 | XR_ITS ---
PROCEDURE: XR SACRUM COCCYX MIN 2V CLINICAL INDICATION: SACRAL BACK PAIN The COMPARISON: No exams were available for comparison FINDINGS: No fracture or dislocation. No lytic or blastic change. There is normal mineralization. There are mild osteoarthritic changes of the SI joints on both sides with mild bony hypertrophy and osteosclerosis. There is degenerative disc disease at the lumbosacral junction. On the lateral view there is some apparent expansion at the lower sacrum with osteosclerosis. While this could be related to some mild rotation, and old fracture could have a similar appearance. A blastic lesion is not excluded. Consider CT of the sacrum for more thorough evaluation. Other findings:None. IMPRESSION: 1. Mild degenerative changes of the SI joints and degenerative disc disease at the lumbosacral junction. 2. Suggestion of some bony expansion at the distal sacrum at the sacrococcygeal junction which could be related to an old fracture or a bony expansile lesion. Consider CT of the sacrum for more thorough evaluation. Dictated by: Melo Freeman MD 11/02/2020 11:51 Melo Freeman MD in [place] 11/02/2020 11:51
== END ==
PROVIDERS: PCP Nurse Practitioner Family; Visit Provider Nurse Practitioner Family
DX: M53.3 Sacrococcygeal disorders, not elsewhere classified (principal)
CPT/HCPCS: 72220

== ENCOUNTER → 2020-11-11 07:57 | Outpatient (CLI) | payer MEDICARE, SELFPAY ==
--- NOTE | 2020-11-11 08:01 | CT_ITS ---
PROCEDURE: CT PELVIS WO CON CLINICAL INDICATION: ABN FINDINGS ON IMAGING Fell 5-6 months ago and has had posterior pelvis pain since Worsening in the last month ATTN to sacrum Abnormal x-rays 11/02/20 COMPARISON: CR XR SACRUM COCCYX MIN 2V from 11/02/2020 TECHNIQUE: Axial images obtained with sagittal and coronal reformats. All CT scans at the facility use one or more dose reduction, viz: automated exposure control, ma/kV adjustment per patient size (including targeted exams where dose is matched to indication, i.e. head), or iterative reconstruction technique. FINDINGS: Radiograph 11/02/2020 raises question of a fracture or bony expansion at the distal sacrum. There is bony hypertrophic change at the sacrococcygeal junction at the disc space and at the facets but no fracture. No bony blastic or destructive change evident. There is degenerative disc disease at L3-L4 with bulging disc. There is 8 mm anterolisthesis of L4 on L5. Prominent bony facet hypertrophic changes are present at that level with mild right foraminal narrowing and prominent bulging disc with severe canal stenosis with severe bilateral lateral recess narrowing. There is degenerative disc disease at L5-S1 with endplate hypertrophic change with severe bilateral foraminal narrowing and bulging disc. No fracture or dislocation. No lytic or blastic change. There is generalized osteopenia Incidental note made of colonic diverticulosis. There is bilateral fat containing lesions of the ovaries consistent with bilateral dermoids. This measures 2.8 cm on the right and 3 cm on the left. Calcific density noted in the left adnexa adjacent to the ovary and could represent eccentric calcification of the dermoid tumor. IMPRESSION: 1. No acute fracture. The radiographic abnormality corresponds to degenerative changes with hypertrophy of the disc space and facets in the sacrococcygeal junction. 2. There is degenerative disc disease at L3-L4 with bulging disc. There is 8 mm anterolisthesis of L4 on L5. Prominent bony facet hypertrophic changes are present at that level with mild right foraminal narrowing and prominent bulging disc with severe canal stenosis with severe bilateral lateral recess narrowing. There is degenerative disc disease at L5-S1 with endplate hypertrophic change with severe bilateral foraminal narrowing and bulging disc 3. Bilateral ovarian dermoid tumors Dictated by: Melo Freeman MD 11/12/2020 09:27 Melo Freeman MD in [place] 11/12/2020 09:27
== END ==
PROVIDERS: PCP Nurse Practitioner Family; Visit Provider Nurse Practitioner Family
DX: R93.89 Abnormal findings on diagnostic imaging of other specified body structures (principal)
CPT/HCPCS: 72192

== ENCOUNTER → 2020-11-30 08:21 | Outpatient (POV) | payer MEDICARE, SELFPAY ==
[2020-11-30 08:47] VITALS: BP 147/91; PULSE 74; RESP 18; TEMP 36.8; O2SAT 98; BMI 27.8
--- NOTE | 2020-11-30 09:17 | HMH.PMCON ---
Assessment and Plan (1) Spinal stenosis of lumbar region with neurogenic claudication Status: Chronic Category: Medical Code(s): M48.062 - Spinal stenosis, lumbar region with neurogenic claudication (2) Degenerative joint disease (DJD) of lumbar spine Status: Chronic Category: Medical Code(s): M47.816 - Spondylosis without myelopathy or radiculopathy, lumbar region (3) Back pain Status: Chronic Category: Medical Code(s): M54.9 - Dorsalgia, unspecified - Assessment and plan all Dx Assessment and Plan for all problems:: Patient will continue physical therapy. I do believe an epidurogram will be beneficial in helping determine if she is a minimally invasive lumbar decompression candidate. I discussed the procedure with the patient I answered her questions. She has been instructed to call the office if she has any issues prior to her next appointment. Patient is not on any anticoagulation therapy. Dr. Farr has reviewed this note and agrees with this plan of care. This note was dictated using voice recognition software and may contain errors or omissions HPI - Data of Consult Consult date: 11/30/20 Requesting Physician: Rosalia Camargo APRN Primary Care Provider: Linda Fraire APRN - Consult Narrative Reason for consult: Low back pain, leg pain History of present illness: Ms. Heller is a 60 year old female who presents today for consultation regards to her low back and leg pain. Patient has had pain for several years. It is worse when she is standing and walking. It is alleviated by leaning forward. Patient states that she is unable to go through the grocery store without leaning on the cart. Patient rates her pain today a 5 out of 10. Patient cannot walk for over 15 minutes. Rest, elevation of legs does benefit her and decrease her pain. Patient's tried and failed muscle relaxers, anti-inflammatories, medications with no success. She is interested in Other means of treatment. She has failed 6 months of conservative therapy. She is currently in physical therapy. Patient and I discussed minimally invasive lumbar decompression and epidural injections. CC: Rosalia Camargo APRN [facility] History I have reviewed the patient's past medical history: Yes Medical History: Reports:: Diabetes Mellitus Type 2, Hyperlipidemia, Hypertension Denies:: Cancer, Diabetes Mellitus Type 1, MRSA *Have you ever received a pneumonia vaccine?: Yes *Have you received a flu vaccine this season?: Yes Other Medical History: Reports: Anemia, Arthritis Other Surgeries: Yes: Angiogram, Cholecystectomy, Amputation: No Fractures: No - *Social History Smoking Status: Never smoker Alcohol Intake: never Substance Use Type: denies use *Occupational Status:: other Housing: house Household Members: other *Travel in the last 8 weeks: None 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 Gastrointestinal: no new onset incontinence, normal bowel movements reported Genitourinary: no new onset incontinence Musculoskeletal: Back pain, leg pain Psychiatric: normal mood/ affect Neurological: Bilateral lower extremity weakness when standing and walking, [denies new onset balance issues] Meds Home Medications Medication Instructions Recorded Confirmed Type aspirin 81 mg tablet,delayed 81 mg PO DAILY 10/11/17 07/25/18 History release baclofen 20 mg tablet 20 mg PO TID 10/11/17 07/25/18 History bupropion HCl 300 mg 24 hr tablet, 300 mg PO QAM 10/11/17 07/25/18 History extended release citalopram 40 mg tablet 40 mg PO DAILY 10/11/17 07/25/18 History gabapentin 800 mg tablet 800 mg PO TID
== END ==
PROVIDERS: PCP Nurse Practitioner Family; Visit Provider Clinical Nurse Specialist Family Health
DX: M48.062 Spinal stenosis, lumbar region with neurogenic claudication (principal); M47.816 Spondylosis without myelopathy or radiculopathy, lumbar region
CPT/HCPCS: 99202; G0463

== ENCOUNTER 2020-12-04 10:19 | Day surgery (SDC) | payer MEDICARE, SELFPAY ==
[2020-12-04 10:53] VITALS: BP 149/76; PULSE 66; RESP 18; TEMP 36.7; O2SAT 98; BMI 27.8
[2020-12-04 11:23] VITALS: BP 132/85; PULSE 85; RESP 18; O2SAT 98
[2020-12-04 11:26] VITALS: BP 138/89; PULSE 85; RESP 18; O2SAT 98
--- NOTE | 2020-12-04 11:29 | HMH.PMPROC ---
- Procedure Date: 12/04/20 Time: 11:29 Anesthesiologist:: Dario Farr MD Complications:: None Pre-procedure Diagnosis:: Degenerative disc disease of lumbar spine with lumbar radiculopathy symptoms and neurogenic claudication symptoms with lumbar spinal stenosis Post-procedure Diagnosis:: Same Indications for Procedure:: This patient is a pleasant 60-year-old white female who we are treating for low back pain with lumbar spinal stenosis and lumbar radiculopathy symptoms with neurogenic claudication symptoms she has increasing pain while standing and walking. Pain is in both sides of Low back and legs. She presents for lumbar epidural steroid injection with epidurogram to assess levels of stenosis and candidacy for minimally invasive lumbar decompression. Procedure Details:: Lumbar epidural steroid injection under fluoroscopy Informed consent was obtained and the risk and benefits of the procedure was explained to the patient. The patient was taken to the procedure room. The patient was placed prone on the procedure table. The patient was prepped and draped in sterile fashion. C-arm fluoroscopy was used to view the lumbar spine. Skin and subcutaneous tissues were anesthetized using lidocaine. I placed an 18-gauge epidural needle and advanced into the L4-L5 interspace using fluoroscopic guidance and [id number] to air. After confirmation of needle placement in the epidural space with dye I injected 2 mL of lidocaine 1.5% with Depo-Medrol 80 mg. Patient tolerated the procedure well with no complications. Plan and Disposition:: Based on epidurogram patient does have significant stenosis at L3-4 and L4-L5 bilaterally. We will schedule her for bilateral minimally invasive lumbar decompression for L3-L4 and L4-L5 bilaterally.
[2020-12-04 11:37] VITALS: BP 149/60; PULSE 64; RESP 18; O2SAT 98
== END 2020-12-04 11:37 | disposition home or self-care (01) ==
LOC: SC.PAINP 10:20
PROVIDERS: PCP Nurse Practitioner Family; Visit Provider Anesthesiology
DX: M48.062 Spinal stenosis, lumbar region with neurogenic claudication (principal); M51.16 Intervertebral disc disorders with radiculopathy, lumbar region; I10 Essential (primary) hypertension; E78.5 Hyperlipidemia, unspecified; E11.9 Type 2 diabetes mellitus without complications; Z98.84 Bariatric surgery status; K21.9 Gastro-esophageal reflux disease without esophagitis; F41.9 Anxiety disorder, unspecified; F32.9 Major depressive disorder, single episode, unspecified; Z79.84 Long term (current) use of oral hypoglycemic drugs; Z79.899 Other long term (current) drug therapy
CPT/HCPCS: 62323; J1040; Q9966

== ENCOUNTER 2020-12-18 10:00 | Outpatient (RCR) | payer MEDICARE, SELFPAY ==
--- NOTE | 2020-11-26 11:04 | HMH.PTOPEV ---
PT Outpatient Evaluation Rehab PT Outpatient Evaluation Start: 11/26/20 09:46 Freq: Status: Active Protocol: Document 11/26/20 10:46 EKATERINA (Rec: 11/26/20 11:03 PHONOAH [email or web address]) Electronically Signed By Shawn Gay, PT 11/26/20 10:46 Outpatient Therapy Subjective History Subjective History Pt is 60 yowf who presents with c/o paion in low back x ~ 6 mos after 2 different ground level falls. She reports pain has been even worse over the past 2-3 wks. She reports pain is worse with prolonged standing, walking or housework. She reports no numbness or tingling at this time. She has hx of MS with R LE weaker than L LE. She has PMH of DM-II, HL, CCY. Chief Complaint Pain,Stiff Symptom Type Ache,Burning Symptoms Relieved By Rest/Positioning Symptoms Aggravated By Standing,Physical Activity, Walking Prior Functional Limitations None Current Functional Limitations Housework,Standing,Walking Symptom Description Constant but Variable Level of pain today (0-10) 5 Pain scale - at its worst (0-10) 10 Lumbopelvic Eval Palapation tenderness bilateral Lumbar/Sacral Palpation Findings Tenderness Lumbar/Sacral Palpation Overall Comment B SI and sacrum Accessory Movement L-spine Vertebrae Accessory Movements Central P/A Torreon that Elicit Symptoms L3 bilateral L4 bilateral L5 bilateral S1 bilateral Range of Motion Lumbar Spine Active Flexion Range of 0-65 Motion (degrees) Lumbar Spine Active Extension Range of 0-5 Motion (degrees) Left Lumbar Spine Lateral Flexion Active 0-10 Range of Motion (degrees) Right Lumbar Spine Lateral Flexion 0-10 Active Range of Motion (degrees) Manual Muscle Test Right Knee Extension Strength Grade 5 Normal Knee Flexion Strength Grade 5 Normal Hip Flexion Strength Grade 4 Good Hip Abduction Strength Grade 4 Good Hip Adduction Strength Grade 4 Good Hip Extension Strength Grade 4 Good Gluteus Moreno Strength Grade 4 Good Ankle Dorsiflexion Strength Grade 5 Normal Gastronemius/Soleus Strength Grade 5 Normal Special Tests Hip Scouring (Quadrant) Test Negative Left,Negative Right Sciatic Nerve Tension Test Positive Left,Positive Right Unilateral Straight Leg Raise (Lasegue) Negative Left,Negative Right Test
== END 2020-12-18 10:05 | disposition home or self-care (01) ==
LOC: PT 10:00
PROVIDERS: PCP Nurse Practitioner Family; Visit Provider Nurse Practitioner Family
DX: M53.3 Sacrococcygeal disorders, not elsewhere classified (principal)
CPT/HCPCS: 97010; 97014; 97110; 97140; 97163; 97530; G0283

== ENCOUNTER → 2021-01-20 12:35 | Outpatient (CLI) | payer MEDICARE, SELFPAY ==
[2021-01-20 13:10] LABS: Basophils % 0.6 % (0.1-2.0); Eosinophils # 0.1 K/mm3 (0.0-0.4); Hemoglobin 11.5 g/dL (12.2-16.2); Lymphocytes # 0.8 K/mm3 (0.7-4.5); Lymphocytes % 12.8 % (10-50); Mean Corpuscular Hemoglobin 30.1 pg (27.0-31.2); Mean Corpuscular Volume 91.2 fl (81-99); Mean Platelet Volume 8.8 fl (7.4-10.4); Monocytes # 0.4 K/mm3 (0.1-1.0); Monocytes % 6.5 % (1.7-9.3); Neutrophils # 5.1 K/mm3 (1.8-7.8); Neutrophils % 79.1 % (37.0-80.0); Platelet Count 204 K/mm3 (142-424); Red Blood Count 3.84 M/mm3 (4.20-5.40); Red Cell Distribution Width 13.6 % (11.5-17.5); White Blood Count 6.5 K/mm3 (4.8-10.8)
[2021-01-20 13:34] LABS: Chloride 103 mmol/L (98-107); Sodium 137 mmol/L (136-145)
[2021-01-20 13:37] LABS: Blood Urea Nitrogen 11 mg/dl (7-17); Estimated Glomerular Filt Rate 85 ml/min (>60); GFR (African American) 103 ML/MIN (>60)
[2021-01-20 13:38] LABS: Calcium 9.6 mg/dl (8.4-10.2); Carbon Dioxide 29 mmol/L (22.0-30.0); Glucose 214 mg/dl (74-100)
== END ==
PROVIDERS: Visit Provider Anesthesiology
DX: Z01.818 Encounter for other preprocedural examination (principal); Z11.52 Encounter for screening for COVID-19; M48.062 Spinal stenosis, lumbar region with neurogenic claudication
CPT/HCPCS: 36415; 80048; 85025; U0003

== ENCOUNTER 2021-01-22 07:15 | Day surgery (SDC) | payer MEDICARE, SELFPAY ==
[2021-01-20 11:02] VITALS: BMI 28.0
[2021-01-22 07:45] VITALS: BP 126/47; PULSE 69; RESP 18; TEMP 36.6; O2SAT 100
[2021-01-22 08:04] LABS: POC Glucose,Bedside 169 (70-110)
--- NOTE | 2021-01-22 10:18 | HMH.OPNOTE ---
Date of procedure: 01/22/21 Pre-op Diagnosis:: Disc disease of lumbar spine with lumbar radiculopathy symptoms and neurogenic claudication symptoms with lumbar spinal stenosis Post-op Diagnosis:: Same Procedure performed:: Minimally invasive lumbar decompression bilateral L3-L4 and L4-L5. Surgeon:: Dario Farr MD LOADING MACHINE TOOL SETTER:: Cameron Montilla Anesthesia: MAC Estimated blood loss (mL): 5 Clinical Note:: This patient is a pleasant 60-year-old white female who we are treating for low back pain with lumbar spinal stenosis and lumbar radiculopathy symptoms with neurogenic claudication symptoms. She does have increasing pain while standing and walking in her back and down both legs. She cannot stand very long or walk very far. We will plan on minimally invasive lumbar decompression bilateral L3-L4 and L4-L5 today. She has failed all previous conservative treatments including epidural steroid injections. Operative findings:: None Operative note:: Informed consent was obtained and the risk and benefits of the procedure was explained to the patient. The patient was taken to the operating room and placed prone on the procedure table. The patient was prepped and draped in sterile fashion. C-arm fluoroscopy was used to view the lumbar spine. The skin and subcutaneous tissues were anesthetized using lidocaine. A epidural needle was inserted and advanced into the L3-L4 interspace. After confirmation of needle placement in the epidural space, dye was injected in a contralateral oblique view. There was an epidurogram seen at L3-L4 and L4-L5. Significant stenosis was seen at L3-L4 and L4-L5. The skin and subcutaneous tissues again were anesthetized using lidocaine. An incision was made and a access trocar was inserted and advanced to contact at the superior aspect of the L4 lamina on the left side. And a contralateral oblique view the side was viewed. Using a bone rongeur and tissue sculptor we debulked bone from the L3-L4 and L4-L5 interspace on the left side. We then used the tissue sculptor to debulk ligament at the L3-L4 and L4-L5 interspace on the left side. We then moved over to the right side and debulked bone and ligament from L3-L4 and L4-L5 on the right side. There is opening of the stenosis at L3-L4 and L4-L5 bilaterally. The access trocar was removed. A total of 3 mL's of dye was used. There is good spread of dye above and below this level as well. We injected 80 mg Depo-Medrol through the epidural needle. The epidural needle was removed and dressings were placed. This encounter for exam is for normal comparison and control in a clinical research program Patient was taken to recovery in stable condition. Patient was discharged home neurologically intact and with good relief of pain symptoms. Plan and disposition: We will follow-up with this patient in 2 weeks. Will reevaluate symptoms at that time. Condition: stable Disposition: PACU Complications:: None
[2021-01-22 10:20] VITALS: BP 144/69; PULSE 81; RESP 18; TEMP 36.1; O2SAT 100
--- NOTE | 2021-01-22 10:26 | P.PN_ITS ---
[facility] Anesthesia Checklist - Patient Identification Patient Identification: Arm Band - Structural Data Admitted From: Home Planned Operative Procedure/s: MILD Procedure under Fluoroscopy at L3/4, L4/5 Consent for Planned Operative Procedure(s) Verified: Yes Verified Documents: Surgical Consent, History and Physical - NPO Status Verified Time NPO: 00:00 - Additional verifications Anesthesia Reactions: No Hx Blood Transfusions: No Blood Transfusion Reaction: No - Airway Assessment C-Spine Mobility Assessed: Yes (mp2) TMJ Mobility Assessed: Yes Dentition: Edentulous - Neurological Assessment Level of Consciousness: Awake, Alert - Anesthesia Plan Anesthesia Risk discussed: Yes Anesthesia Plan: Verified ASA Class: III Anesthesia Type: MAC [facility] History I have reviewed the patient's past medical history: Yes Medical History: Reports:: Diabetes Mellitus Type 2, Hyperlipidemia, Hypertension Denies:: Cancer, Diabetes Mellitus Type 1, Internal Pacemaker, MRSA, Seizures *Have you ever received a pneumonia vaccine?: Yes *Have you received a flu vaccine this season?: No Other Medical History: Reports: Anemia, Arthritis. Denies: Blood Transfusion Reaction Anesthesia experience/problems:: nac Other Surgeries: Yes: Angiogram, Cholecystectomy, . 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
[2021-01-22 10:35] VITALS: BP 122/68; PULSE 78; RESP 18; O2SAT 98
--- NOTE | 2021-01-22 10:37 | SUR.OPER ---
Depomedrol was administered into lumbar area during decompression at L3/4 and L4/5.
[2021-01-22 10:50] VITALS: BP 121/68; PULSE 72; RESP 18; O2SAT 98
[2021-01-22 10:55] VITALS: BP 137/67; PULSE 72; RESP 18; O2SAT 93
== END 2021-01-22 10:55 | disposition home or self-care (01) ==
LOC: OR 07:16
PROVIDERS: PCP Internal Medicine Adolescent Medicine; Visit Provider Anesthesiology
PROC: (CPT 0275T; principal; 2021-01-22 09:00)
DX: M51.16 Intervertebral disc disorders with radiculopathy, lumbar region (principal); M48.062 Spinal stenosis, lumbar region with neurogenic claudication; Z00.6 Encounter for examination for normal comparison and control in clinical research program; E11.9 Type 2 diabetes mellitus without complications; E78.5 Hyperlipidemia, unspecified; I10 Essential (primary) hypertension; M19.90 Unspecified osteoarthritis, unspecified site; D64.9 Anemia, unspecified; Z90.49 Acquired absence of other specified parts of digestive tract; Z79.82 Long term (current) use of aspirin; Z79.84 Long term (current) use of oral hypoglycemic drugs; Z79.899 Other long term (current) drug therapy
CPT/HCPCS: 0275T; 82962; 96374; C1889; J1040; J3370

== ENCOUNTER → 2021-02-15 10:40 | Outpatient (POV) | payer MEDICARE, SELFPAY ==
[2021-02-15 10:48] VITALS: BP 123/63; PULSE 73; RESP 18; O2SAT 97; BMI 27.8
--- NOTE | 2021-02-15 11:23 | P.CONS_ITS ---
[facility] Pain Management SOAP Note Subjective:: Patient is a 60-year-old white female who presents today for follow-up. She has been treated for degenerative disc disease lumbar spine with lumbar radiculopathy symptoms and spinal stenosis with neurogenic claudication symptoms. Patient is doing well overall. She did undergo mild procedure on January 22, 2021. She denies any side effects. She says that she is doing well since her procedure. She rates her pain a 0 out of 10. She says that she has gotten excellent relief. She is no longer having neurogenic claudication type symptoms. Is doing well overall. Review of Systems General: No recent weight changes, no fever, no sleep disturbances Respiratory: No cough, no shortness of air, no recurring pulmonary infections Cardiovascular/peripheral vascular: No chest pain, no palpitations, no edema, no shortness of breath Gastrointestinal: No new onset incontinence, normal bowel movements reported Genitourinary: No new onset incontinence Musculoskeletal: Denies pain Psychiatric: Normal mood/affect Neurological: [Denies weakness in extremities], [denies balance issues] Objective:: Physical exam General: Alert and oriented x3, no acute distress, pleasant and cooperative, [on room air] Lungs: Respirations even and unlabored, symmetrical chest expansion Eyes: PERRL Musculoskeletal: Flexion and extension of [] spine nonguarded, deep tendon reflexes normal, strength in upper and lower extremities [5/5], [abnormal gait noted] Neurological: Speech clear, 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 We will plan to follow-up with her in 3 months for reevaluation of her symptoms. Patient has been instructed to contact clinic if she has any concerns for next appointment. Patient has been instructed to contact the clinic with any concerns before the next appointment. Dr. Farr has reviewed this note and agrees with this plan of care. This note was dictated using voice recognition software and make contain errors or omissions. [facility] History I have reviewed the patient's past medical history: Yes Medical History: Reports:: Diabetes Mellitus Type 2, Hyperlipidemia, Hypertension Denies:: Cancer, Diabetes Mellitus Type 1, Internal Pacemaker, MRSA, Seizures *Have you ever received a pneumonia vaccine?: Yes *Have you received a flu vaccine this season?: No Other Medical History: Reports: Anemia, Arthritis. Denies: Blood Transfusion Reaction Other Surgeries: Yes: Angiogram, Cholecystectomy, . 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
== END ==
PROVIDERS: PCP Internal Medicine Adolescent Medicine; Visit Provider Clinical Nurse Specialist Family Health
DX: M51.16 Intervertebral disc disorders with radiculopathy, lumbar region (principal); M48.061 Spinal stenosis, lumbar region without neurogenic claudication
CPT/HCPCS: 99212; G0463

== ENCOUNTER → 2021-03-24 15:53 | Outpatient (CLI) | payer MEDICARE, SELFPAY ==
[2021-03-24 16:37] LABS: Basophils # 0.1 K/mm3 (0-0.2); Basophils % 0.8 % (0.1-2.0); Eosinophils # 0.2 K/mm3 (0.0-0.4); Eosinophils % 2.9 % (0.1-12.0); Hematocrit 34.7 % (37.0-47.0); Hemoglobin 11.9 g/dL (12.2-16.2); Lymphocytes # 0.8 K/mm3 (0.7-4.5); Lymphocytes % 14.5 % (10-50); Mean Corpuscular HGB Conc 34.2 g/dL (31.8-35.4); Mean Corpuscular Hemoglobin 30.3 pg (27.0-31.2); Mean Corpuscular Volume 88.8 fl (81-99); Mean Platelet Volume 8.4 fl (7.4-10.4); Monocytes # 0.3 K/mm3 (0.1-1.0); Monocytes % 5.3 % (1.7-9.3); Neutrophils # 4.2 K/mm3 (1.8-7.8); Neutrophils % 76.5 % (37.0-80.0); Platelet Count 217 K/mm3 (142-424); Red Blood Count 3.91 M/mm3 (4.20-5.40); Red Cell Distribution Width 13.5 % (11.5-17.5); White Blood Count 5.5 K/mm3 (4.8-10.8)
[2021-03-24 16:47] LABS: Hemoglobin A1C 6.5 % (4.0-6.0)
[2021-03-24 17:22] LABS: Alanine Aminotransferase 16 U/L (12-78); Albumin Level 4.4 g/dl (3.5-5.0); Albumin/Globulin Ratio 1.8 (1.1-1.8); Alkaline Phosphatase 67 U/L (38-126); Anion Gap 12.6 mEq/L (5-15); Aspartate Amino Transferase 22 U/L (14-36); Bilirubin,Total 0.4 mg/dl (0.2-1.3); Blood Urea Nitrogen 16 mg/dl (7-17); Calcium 9.6 mg/dl (8.4-10.2); Carbon Dioxide 28 mmol/L (22.0-30.0); Chloride 104 mmol/L (98-107); Chol/HDL Ratio 4.1 (1-3.5); Cholesterol 205 mg/dl (140-200); Estimated Glomerular Filt Rate 73 ml/min (>60); GFR (African American) 88 ML/MIN (>60); Globulin 2.5 g/dL (1.3-3.2); Glucose 123 mg/dl (74-100); HDL Cholesterol 50 mg/dl (40-60); Potassium 4.6 mmoL/L (3.5-5.1); Sodium 140 mmol/L (136-145); Total Protein,Serum 6.9 g/dl (6.3-8.2); Triglycerides 399 mg/dl (30-150); VLDL Cholesterol 80 mg/dL (0-40)
[2021-03-24 17:33] LABS: Direct LDL Cholesterol 106.84 mg/dL (100-129)
[2021-03-24 18:14] LABS: Vitamin B12 > 1000 pg/mL (239-931)
[2021-03-24 19:15] LABS: 25-OH Vitamin D, Total 77.7 ng/mL (30-100)
== END ==
PROVIDERS: Visit Provider Nurse Practitioner Family
DX: E11.9 Type 2 diabetes mellitus without complications (principal); E78.5 Hyperlipidemia, unspecified; E53.8 Deficiency of other specified B group vitamins; E55.9 Vitamin D deficiency, unspecified; Z79.84 Long term (current) use of oral hypoglycemic drugs
CPT/HCPCS: 36415; 80053; 80061; 82306; 82607; 83036; 85025

== ENCOUNTER → 2021-04-23 13:15 | Outpatient (CLI) | payer MEDICARE, SELFPAY | PROVIDERS: Visit Provider Psychiatry & Neurology Clinical Neurophysiology | DX: M54.5 Low back pain (principal) ==

== ENCOUNTER → 2021-06-01 11:09 | Outpatient (POV) | payer MEDICARE, SELFPAY ==
[2021-06-01 11:42] VITALS: BP 128/76; PULSE 74; RESP 18; O2SAT 96; BMI 27.8
--- NOTE | 2021-06-01 13:06 | HMH.PAINSOAP ---
[facility] Pain Management SOAP Note Subjective:: Patient is a pleasant 61-year-old white female who presents today for follow-up. The patient has been treated in our clinic for degenerative disease lumbar spine with lumbar radiculopathy symptoms. She did undergo a mild procedure in January 2021. She was doing well following the procedure until recently. She says approximately 2 weeks ago she began to develop severe pain in her left buttock area. She does rate her pain a 5 out of 10. The pain is present at all times, however, worsens with standing and walking. It is nonradicular into her lower extremities. She does say since the mild procedure she has gotten relief in her heaviness and weakness into her lower extremities. She also reports that she was having relief of her low back pain until the last 2 weeks. The pain is now intense in nature with a throbbing sensation and tenderness to palpation. She has attempted home stretching with no relief. Review of Systems General: No recent weight changes, no fever, no sleep disturbances Respiratory: No cough, no shortness of air, no recurring pulmonary infections Cardiovascular/peripheral vascular: No chest pain, no palpitations, no edema, no shortness of breath Gastrointestinal: No new onset incontinence, normal bowel movements reported Genitourinary: No new onset incontinence Musculoskeletal: Left buttock pain Psychiatric: [Normal mood/affect] Neurological: [Denies weakness in extremities], [denies balance issues] Objective:: Physical exam General: Alert and oriented x3, no acute distress, pleasant and cooperative, [on room air] Lungs: Respirations even and unlabored, symmetrical chest expansion Eyes: PERRL Musculoskeletal: Palpation to left SI joint and left buttock somewhat guarded secondary to pain, strength in upper and lower extremities [5/5], [antalgic gait noted], positive Savana's test, positive distraction test, positive compression test, positive Kellie's test Neurological: Speech clear, [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 We will schedule her for a left SI joint injection to see if this relieves her low back pain. If the patient does not get relief with the SI injection, she may need a lumbar epidural steroid injection. She does have bulging disks per her MRI report. Patient is not having radicular pain at this time, however. We will follow-up with the patient after her left SI joint injection for reevaluation of symptoms. She will continue with home stretching until her next visit. Possible side effects of corticosteroids have been discussed with the patient. Risks and benefits of the procedure have been explained to the patient. Patient would like to proceed with the procedure. Patient has been instructed to contact the clinic with any concerns before the next appointment. Dr. Farr has reviewed this note and agrees with this plan of care. This note was dictated using voice recognition software and make contain errors or omissions. [facility] History I have reviewed the patient's past medical history: Yes Medical History: Reports:: Diabetes Mellitus Type 2, Hyperlipidemia, Hypertension Denies:: Cancer, Diabetes Mellitus Type 1, Internal Pacemaker, MRSA, Seizures *Have you ever received a pneumonia vaccine?: No *Have you received a flu vaccine this season?: No Other Medical History: Reports: Anemia, Arthritis. Denies: Blood Transfusion Reaction Other Surgeries: Yes: Angiogram, Cholecystectomy, . No: Pacemaker Amputation: No Fractures: Yes (right wrist sugeries) - *Social History Smoking Status: Never smoker Alcohol Intake: never Substance Use Type: denies use *Occupational Status:: unemployed Housing: house Household Members: spouse *Travel in the mt
== END ==
PROVIDERS: Visit Provider Clinical Nurse Specialist Family Health
DX: M46.1 Sacroiliitis, not elsewhere classified (principal); M79.89 Other specified soft tissue disorders
CPT/HCPCS: 99212; G0463

== ENCOUNTER 2021-07-29 09:12 | Emergency (ER) | payer MEDICARE, SELFPAY ==
[2021-07-29 09:25] VITALS: BP 131/76; PULSE 67; RESP 17; TEMP 36.6; O2SAT 99; BMI 27.8
--- NOTE | 2021-07-29 09:27 | XR_ITS ---
PROCEDURE: XR WRIST LT MIN 3V XR HAND LEFT THREE VIEWS CLINICAL INDICATION: pain COMPARISON: CR XR HAND LT MIN 3V from 07/29/2021 FINDINGS: Left hand and wrist: No fracture or dislocation. No lytic or blastic change. There is normal mineralization. Mild osteoarthritic change at the 1st carpal metacarpal junction Other findings:None. 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
--- NOTE | 2021-07-29 10:00 | HMH.EDUTC ---
[facility] [place] Disposition Clinical Impression: Wrist pain Qualifiers: Laterality: left Qualified Code(s): M25.532 - Pain in left wrist Disposition: Home, Self-Care Condition on Discharge: Good Instructions: DI for Wrist Pain Additional Instructions: *RICE, Rest the extremity, Ice 15-20 minutes 3-4 times daily, Compress- wear the fahad wrap as discussed as much as possible to help reduce swelling and pain, Elevate the extremity when at rest *Fahad wrap/Velcro Wrist splint is for support and help control swelling, use it except in the shower. Be sure that is not to tight but not to loose either *Elevate when resting *Ibuprofen as directed on package every 6-8 hours as needed for pain an inflammation. If need something more can take Tylenol in between doses of Ibuprofen to help Immediately follow up with your family doctor for new or worsening of symptoms, or no noticeable improvement over the next 3-5 days Follow up with your Family Doctor or Orthopedics if no improvement or any worsening of symptom for further evaluation Return if needed Straight to ER if any life threatening symptoms Referrals: Jose Miller MD [Primary Care Provider] - As needed Medical Decision Making - Aries Inquiry Pt receiving controlled substance: No Aries was queried for this patient: No Vital Signs: 07/29/21 09:25 07/29/21 10:26 Temperature 97.8 F 97.8 F Temperature Source Oral Pulse Rate 67 Pulse Rate [Right Brachial] 67 Respiratory Rate 17 17 Blood Pressure 131/76 Blood Pressure [Right Arm] 131/76 Blood Pressure Mean [Right Arm] 94 Blood Pressure Source [Right Arm] Automatic Cuff Blood Pressure Position [Right Arm] Sitting 02 Sat by Pulse Oximetry 99 Oxygen Delivery Method Room Air - Radiology Data #1 Image(s): Hand Image Reviewed: Yes I reviewed the patient's radiology image Preliminary Findings: No Fracture Seen #2 Image(s): Wrist Image Reviewed: Yes I reviewed the patient's radiology image Preliminary Findings: No Fracture Seen No acute fracture [facility] [place] HPI - General Stated complaint: left wrist pain, no accident Time Seen by Provider: 07/29/21 10:00 Mode of Arrival: Ambulatory Source of Information: Patient Limitations: No Limitations Description of Symptoms (Recalled from Triage Doc. by RN): PATIENT C/O PAIN AND TINGLING TO LEFT THUMB AND WRIST X 2 WEEKS HEENT Symptoms (Recalled from RN notes): No Resp Symptoms (Recalled from RN notes): No Skin Symptoms (Recalled from RN notes): No MS Symptoms (Recalled from RN notes): Yes Functional Status (Recalled from RN notes): WNL - History of Present Illness Provider Complaint: Patient states that she has been having pain in her left wrist on and off and feels like she has a knot on it and at times has tingling feeling in her thumb Denies injury States that she did fall awhile back and hurt the wrist but not sure if that is what is causing the problem now or not - Related Data Home Medications Medication Instructions Recorded Confirmed aspirin 81 mg tablet,delayed 81 mg PO DAILY 10/11/17 04/12/21 release baclofen 20 mg tablet 20 mg PO TID 10/11/17 04/12/21 bupropion HCl 300 mg 24 hr tablet, 300 mg PO QAM 10/11/17 04/12/21 extended release citalopram 40 mg tablet 40 mg PO DAILY 10/11/17 04/12/21 gabapentin 800 mg tablet 800 mg PO TID 10/11/17 04/12/21 omeprazole 40 mg capsule,delayed 40 mg PO DAILY 10/11/17 04/12/21 release teriflunomide 14 mg tablet 14 mg PO DAILY 02/02/18 04/12/21 Ascorbate Calcium [Vitamin C] 1,000 mg PO DAILY 04/19/18 04/12/21 Biotin 5,000 mcg SL DAILY 04/19/18 04/12/21 Cholecalciferol (Vitamin D3) 1,000 unit PO DAILY 04/19/18 04/12/21 [Vitamin D3 1,000 Unit Cap] Cyanocobalamin (Vitamin B-12) 1,000 mcg PO DIRECTED 04/19/18 04/12/21 [Vitamin B-12 1000mcg Tablet] Folic Acid/Multivit,Iron,[place] 1 each PO DAILY 04/19/18 04/12/21 [Centrum Chewable Tablet] Metformin HCl 500 mg PO BID 04/19/18 04/12/21 metformin 500 mg ta
[2021-07-29 10:26] VITALS: BP 131/76; PULSE 67; RESP 17; TEMP 36.6; O2SAT 99
== END 2021-07-29 10:32 | disposition home or self-care (01) ==
PROVIDERS: Emergency Provider Nurse Practitioner; PCP Internal Medicine Adolescent Medicine
DX: M25.532 Pain in left wrist (principal); E11.9 Type 2 diabetes mellitus without complications; I10 Essential (primary) hypertension
CPT/HCPCS: 29125; G0463; 73110; 73130; 99202

== ENCOUNTER 2021-12-08 10:13 | Emergency (ER) | payer MEDICARE, SELFPAY ==
[2021-12-08 12:40] VITALS: BP 119/54; PULSE 70; RESP 16; TEMP 36.6; O2SAT 94; BMI 27.8
--- NOTE | 2021-12-08 12:40 | XR_ITS ---
FINAL REPORT CLINICAL HISTORY: pain COMPARISON: July 29, 2021 FINDINGS: LEFT WRIST 3 views were obtained. There is no acute fracture or dislocation. There are mild degenerative changes. There is a soft tissue calcification versus foreign body measuring 3 mm at the radial aspect of the wrist. This is new since the prior exam. IMPRESSION: Degenerative change. Soft tissue calcification versus foreign body at the radial aspect of the wrist. Reviewed, Interpreted and Dictated by Michael Marte III, MD Transcribed by Isabel Ha Authenticated by Michael Marte III, MD on 12/08/2021 01:50:05 PM [facility]
--- NOTE | 2021-12-08 12:40 | XR_ITS ---
FINAL REPORT CLINICAL HISTORY: pain COMPARISON: July 29, 2021 FINDINGS: LEFT HAND 3 views were obtained. There is no acute fracture or dislocation. There are mild degenerative changes. There is presumed artifact at the 4th middle phalanx seen on lateral view. There is a small 1-2 cm foreign body at the proximal 5th digit which appears stable. IMPRESSION: Mild degenerative change. Presumed artifact and foreign body as above. Reviewed, Interpreted and Dictated by Michael Marte III, MD Transcribed by Isabel Ha Authenticated by Michael Marte III, MD on 12/08/2021 01:50:02 PM [facility]
--- NOTE | 2021-12-08 13:12 | HMH.EDUTC ---
[facility] [place] Disposition Clinical Impression: Cellulitis of left wrist Disposition: Home, Self-Care Condition on Discharge: Good Instructions: Cellulitis Additional Instructions: Apply warm wet compresses to the affected sites three or four times per day for 15 minutes as tolerated. Take the antibiotics as directed. Follow up with your regular doctor for a recheck in 2 days. GO TO THE ER FOR ANY WORSENING SYMPTOMS OR CONCERNS Prescriptions: Sulfamethoxazole/Trimethoprim [Bactrim DS tablet] 1 each PO BID 10 Days #20 tab Transmission Status: Received by [id number] Mupirocin [Bactroban 2% Ointment 22gm tube] 1 applicatio TP TID 7 Days #1 gm Transmission Status: Received by [facility] [id number] cephALEXin [cephALEXin 500mg capsule] 500 mg PO Q6H 10 Days #40 cap Transmission Status: Received by [facility] [id number] Referrals: Jose Miller MD [Primary Care Provider] - Time of Disposition: 13:33 Medical Decision Making - Medical Records Medical records reviewed: No: I reviewed the patient's medical records. - Aries Inquiry Pt receiving controlled substance: No Vital Signs: 12/08/21 12:40 12/08/21 13:51 Temperature 97.9 F 97.9 F Temperature Source Oral Pulse Rate 70 Pulse Rate [Left] 70 Respiratory Rate 16 16 Blood Pressure 119/54 L Blood Pressure [Right Arm] 119/54 L Blood Pressure Mean [Right Arm] 75 02 Sat by Pulse Oximetry 94 L - Lab Data Lab Results 12/08/21 13:33: WBC 2.6 L, RBC 3.65 L, Hgb 11.5 L, Hct 34.0 L, MCV 93.3, MCH 31.4 H, MCHC 33.7, RDW 13.5, Plt Count 175, MPV 9.0, Neut % (Auto) 77.6, Lymph % (Auto) 12.9, Grant % (Auto) 7.0, Eos % (Auto) 1.9, Baso % (Auto) 0.6, Neut # (Auto) 2.0, Lymph # (Auto) 0.3 L, Grant # (Auto) 0.2, Eos # (Auto) 0.1, Baso # (Auto) 0.0 12/08/21 13:33: Sodium 138, Potassium 4.1, Chloride 106, Carbon Dioxide 25, Anion Gap 11.1, BUN 11, Creatinine 0.60, Estimated Creat Clear 84, Estimated GFR 101, Est GFR ( Amer) 123, Glucose 111 H, Calcium 9.3 Result diagrams: 12/08/21 13:33 12/08/21 13:33 Orders (Tests/Meds): ED MEDICATIONS Discontinued Medications Generic Name Dose Route Start Last Admin Trade Name Gerald PRN Reason Stop Dose Admin Ceftriaxone Sodium 1 gm 12/08/21 13:30 12/08/21 13:50 Ceftriaxone 1gm Vial IM 12/08/21 13:31 1 gm ONCE ONE Administration Lidocaine HCl 0 ml 12/08/21 13:30 12/08/21 13:50 Lidocaine 1% 5ml Pf Vial IM 12/08/21 13:31 2 ml ONCE ONE Administration ORDERS Category Date Time Status Blood Culture Stat Micro 12/08/21 13:33 Received [facility] [place] HPI - General Stated complaint: left arm pain, no accident Time Seen by Provider: 12/08/21 13:12 Mode of Arrival: Ambulatory Source of Information: Patient Limitations: No Limitations Description of Symptoms (Recalled from Triage Doc. by RN): pt states last night her L wrist became swollen and painful. pt states the pain radiates to her arm, aching in nature and pain scale of 8/10. pt denies any injury. HEENT Symptoms (Recalled from RN notes): No Resp Symptoms (Recalled from RN notes): No Skin Symptoms (Recalled from RN notes): No MS Symptoms (Recalled from RN notes): Yes Functional Status (Recalled from RN notes): wnl - History of Present Illness Provider Complaint: She has been having left forearm and wrist redness and tenderness for the past 2 days. - Related Data Home Medications Medication Instructions Recorded Confirmed aspirin 81 mg tablet,delayed 81 mg PO DAILY 10/11/17 04/12/21 release baclofen 20 mg tablet 20 mg PO TID 10/11/17 04/12/21 bupropion HCl 300 mg 24 hr tablet, 300 mg PO QAM 10/11/17 04/12/21 extended release citalopram 40 mg tablet 40 mg PO DAILY 10/11/17 04/12/21 gabapentin 800 mg tablet 800 mg PO TID 10/11/17 04/12/21 omeprazole 40 mg capsule,delayed 40 mg PO DAILY 10/11/17 04/12/21 release teriflunomide 14 mg tablet 14 mg PO DAILY 02/02/18 04/12/21 Ascorbate Calcium [Vitamin C]
[2021-12-08 13:51] VITALS: BP 119/54; PULSE 70; RESP 16; TEMP 36.6
[2021-12-08 14:02] LABS: Basophils % 0.6 % (0.1-2.0); Eosinophils # 0.1 K/mm3 (0.0-0.4); Eosinophils % 1.9 % (0.1-12.0); Hemoglobin 11.5 g/dL (12.2-16.2); Lymphocytes # 0.3 K/mm3 (0.7-4.5); Lymphocytes % 12.9 % (10-50); Mean Corpuscular HGB Conc 33.7 g/dL (31.8-35.4); Mean Corpuscular Hemoglobin 31.4 pg (27.0-31.2); Mean Corpuscular Volume 93.3 fl (81-99); Monocytes # 0.2 K/mm3 (0.1-1.0); Neutrophils % 77.6 % (37.0-80.0); Platelet Count 175 K/mm3 (142-424); Red Blood Count 3.65 M/mm3 (4.20-5.40); Red Cell Distribution Width 13.5 % (11.5-17.5); White Blood Count 2.6 K/mm3 (4.8-10.8)
[2021-12-08 14:05] LABS: Anion Gap 11.1 mEq/L (5-15); Blood Urea Nitrogen 11 mg/dl (7-17); Calcium 9.3 mg/dl (8.4-10.2); Carbon Dioxide 25 mmol/L (22.0-30.0); Chloride 106 mmol/L (98-107); Creatinine Clearance Estimated 84 mL/min (50-200); Estimated Glomerular Filt Rate 101 ml/min (>60); GFR (African American) 123 ML/MIN (>60); Glucose 111 mg/dl (74-100); Potassium 4.1 mmoL/L (3.5-5.1); Sodium 138 mmol/L (136-145)
== END 2021-12-08 13:52 | disposition home or self-care (01) ==
PROVIDERS: Emergency Provider Nurse Practitioner Family; PCP Internal Medicine Adolescent Medicine
DX: L03.114 Cellulitis of left upper limb (principal); E11.9 Type 2 diabetes mellitus without complications; I10 Essential (primary) hypertension; E78.5 Hyperlipidemia, unspecified; Z79.899 Other long term (current) drug therapy
CPT/HCPCS: 73110; 73130; 80048; 85025; 87040; 96372; 99213; G0463; J0696

== ENCOUNTER → 2022-04-04 12:58 | Outpatient (POV) | payer MEDICARE, SELFPAY ==
[2022-04-04 13:11] VITALS: BP 129/40; PULSE 65; RESP 18; TEMP 36.4; O2SAT 97; BMI 27.8
--- NOTE | 2022-04-04 14:53 | P.CONS_ITS ---
[facility] Pain Management SOAP Note Subjective:: Patient is a pleasant 62-year-old female who presents today for follow-up. Patient is current being treated for degenerative disc disease of lumbar spine with lumbar radiculopathy symptoms, spinal stenosis with neurogenic claudication, sacroiliitis. Patient had the minimally invasive lumbar decompre ssion procedure in January 2021. She continues to have relief from this procedure. We have not seen this patient since May 2021. Today, patient states that she is having significant pain around her tailbone. She has been having trouble getting up from a sitting position. She cannot tolerate any prolonged activity such as sitting, standing, and walking. Rates pain today as 5/10. Aries [id number] with an active morphine equivalent of 0. Review of Systems: General: No recent weight changes, no fever, no sleep disturbances Respiratory: No cough, no shortness of air, no recurring pulmonary infections Cardiovascular/peripheral vascular: No chest pain, no palpitations, no edema, no shortness of breath Gastrointestinal: No new onset incontinence, normal bowel movements reported Genitourinary: No new onset incontinence Musculoskeletal: Low back pain Psychiatric: [Normal mood/affect] Neurological: [Denies weakness in extremities], [denies balance issues] Objective:: Physical Exam: General: Alert and oriented x3, no acute distress, pleasant and cooperative Lungs: Respirations even and unlabored, symmetrical chest expansion Eyes: PERRL Musculoskeletal: Flexion and extension of lumbar [spine] somewhat guarded secondary to pain, [antalgic gait noted]; tender to palpation around the sacral/coccyx area Neurological: Speech clear, no gross sensory deficit Assessment:: Coccygodynia, degenerative disc disease of lumbar spine with lumbar radiculopathy symptoms, spinal stenosis with neurogenic claudication Plan:: Patient presents today with worsening pain around her tailbone. Will schedule patient for caudal MAYRA. Not taking BT. Patient has been instructed to contact the clinic with any concerns before the next appointment. Dr. Farr has reviewed this note and agrees with this plan of care. This note was dictated using voice recognition software and make contain errors or omissions. [facility] History Medical History: Reports:: Diabetes Mellitus Type 2, Hyperlipidemia, Hypertension Denies:: Cancer, Diabetes Mellitus Type 1, Internal Pacemaker, MRSA, Seizures *Have you ever received a pneumonia vaccine?: No *Have you received a flu vaccine this season?: No Other Medical History: Reports: Anemia, Arthritis. Denies: Blood Transfusion Reaction Other Surgeries: Yes: Angiogram, Cholecystectomy, . 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
== END ==
PROVIDERS: PCP Internal Medicine Adolescent Medicine; Visit Provider Student in an Organized Health Care Education/Training Program
DX: M51.16 Intervertebral disc disorders with radiculopathy, lumbar region (principal); M48.062 Spinal stenosis, lumbar region with neurogenic claudication; M53.3 Sacrococcygeal disorders, not elsewhere classified
CPT/HCPCS: 99212; G0463

== ENCOUNTER 2022-04-19 13:41 | Day surgery (SDC) | payer MEDICARE, SELFPAY ==
[2022-04-19 13:50] VITALS: BP 147/63; PULSE 73; RESP 20; TEMP 36.4; O2SAT 99; BMI 27.8
--- NOTE | 2022-04-19 13:56 | HMH.PMPROC ---
- Procedure Date: 04/19/22 Time: 13:56 Anesthesiologist:: Jonny Maradiaga CRNA Complications:: None Pre-procedure Diagnosis:: Degenerative disc disease lumbar spine multilevels. Lumbar radiculopathy symptoms. Coccydynia. spinal stenosis. Post-procedure Diagnosis:: Same Indications for Procedure:: This patient is a pleasant 62-year-old female with a history of low back issues. Degenerative disc disease lumbar spine multilevels. Lumbar radiculopathy symptoms. Coccydynia. Spinal stenosis. She presents today for caudal epidural steroid injection. She rates her pain 6/10. Procedure Details:: Details of the procedure were explained to the patient. The patient was taken the procedure room placed in the prone position. The area over the sacrum was cleaned using chlorhexidine as a cleansing solution. Using fluoroscopy guidance and a lateral position a 25-gauge 3-1/2 inch spinal needle was used to access the caudal space without difficulty. A solution of 1 cc of 0.25% Marcaine +5 cc of normal saline and 80 mg of Depo-Medrol was injected after negative aspiration. Needle was removed. Band-Aid applied. Patient tolerated procedure without difficulty. There were no complications. Plan and Disposition:: Patient was discharged without incident.
[2022-04-19 14:10] VITALS: BP 127/66; PULSE 64; RESP 20; O2SAT 100
== END 2022-04-19 14:10 | disposition home or self-care (01) ==
LOC: SC.PAINP 13:42
PROVIDERS: PCP Internal Medicine Adolescent Medicine; Visit Provider Nurse Anesthetist, Certified Registered
DX: M51.16 Intervertebral disc disorders with radiculopathy, lumbar region (principal); M53.3 Sacrococcygeal disorders, not elsewhere classified; M48.061 Spinal stenosis, lumbar region without neurogenic claudication
CPT/HCPCS: 62323; J1040

== ENCOUNTER → 2022-05-05 08:21 | Outpatient (POV) | payer MEDICARE, SELFPAY ==
[2022-05-05 08:30] VITALS: BP 144/60; PULSE 60; RESP 20; TEMP 36.4; O2SAT 98; BMI 27.8
--- NOTE | 2022-05-05 08:45 | EXP.PAIN.SOA ---
[facility] Pain Management SOAP Note Subjective:: Patient is a pleasant 62-year-old female who presents today for follow-up from caudal epidural steroid injection on 04/19/2022. We are currently treating the patient for degenerative disc disease of lumbar spine multilevels with lumbar radiculopathy symptoms, coccydynia, spinal stenosis. She states that she got only about 2 to 3 hours worth of relief from this injection. Today she rates her pain a 5 out of 10 and states that it is in her low back and right above her tailbone. Patient states this is a aching, throbbing sensation that is worse with increased activity. It has affected her ability to perform ADLs such as shopping and housework. Patient denies any new trauma or injury to the site. She denies any change to the location or type of pain she experiences. We have done injective therapy in the past. Patient states in 2020 she did have a epidural injection that did provide significant relief of her symptoms. Patient does take [id number] Tylenol as needed with minimal relief. She is also saw physical therapy in the past however she states it made her pain worse. Patient is prescribed gabapentin 800 mg 3 times a day and baclofen 20 mg 3 times daily. Patient denies any side effects from these medications. She states these medications are adequately managing her pain. Patient states these medications do help with her neuropathy however have not made any difference in her pain above her tailbone. Her Aries is [id number]. Its been reviewed and appropriate. Review of Systems: General: No recent weight changes, no fever, no sleep disturbances Respiratory: No cough, no shortness of air, no recurring pulmonary infections Cardiovascular/peripheral vascular: No chest pain, no palpitations, no edema, no shortness of breath Gastrointestinal: No new onset incontinence, normal bowel movements reported Genitourinary: No new onset incontinence Musculoskeletal: Low back pain, tailbone pain Psychiatric: [Normal mood/affect] Neurological: [Denies weakness in extremities], [denies balance issues] Objective:: Physical Exam: General: Alert and oriented x3, no acute distress, pleasant and cooperative Lungs: Respirations even and unlabored, symmetrical chest expansion Eyes: PERRL Musculoskeletal: Flexion and extension of lumbar [spine] somewhat guarded secondary to pain, [antalgic gait noted]. Point tenderness at coccyx Neurological: Speech clear, no gross sensory deficit Assessment:: Degenerative disc disease of lumbar spine multilevels with lumbar radiculopathy symptoms, coccydynia, spinal stenosis Plan:: Patient continues to have significant pain in her low back and above her tailbone. Patient had positive point tenderness along coccyx during today's exam. Patient had a lumbar epidural steroid injection in November 2020 that patient states provided significant relief of her symptoms lasting several months. I have discussed with the patient regarding repeating these injections. Risk and benefits were discussed with the patient. The patient would like to proceed forward with this injection. We will schedule the patient for a lumbar epidural steroid injection at L4-L5. Patient is not currently on any blood thinners. Patient has been instructed to contact the clinic with any concerns before the next appointment. Dr. Farr has reviewed this note and agrees with this plan of care. This note was dictated using voice recognition software and make contain errors or omissions. PFS PFS Social History Smoking Status: Never smoker alcohol intake: never substance use type: denies use current occupational status: other household members: spouse housing: house current occupational exposures/hazards: No caffeine: Yes
== END ==
PROVIDERS: PCP Internal Medicine Adolescent Medicine; Visit Provider Nurse Practitioner Family
DX: M51.16 Intervertebral disc disorders with radiculopathy, lumbar region (principal); M53.3 Sacrococcygeal disorders, not elsewhere classified; M48.00 Spinal stenosis, site unspecified
CPT/HCPCS: 99212; G0463

== ENCOUNTER 2022-06-21 14:13 | Day surgery (SDC) | payer MEDICARE, SELFPAY ==
[2022-06-21 14:30] VITALS: BP 119/57; PULSE 76; RESP 16; O2SAT 95; BMI 27.8
[2022-06-21 14:56] VITALS: BP 114/50; PULSE 72; RESP 18; O2SAT 98
[2022-06-21 14:57] VITALS: BP 114/50; PULSE 72; RESP 18; O2SAT 98
[2022-06-21 15:02] VITALS: BP 114/61; PULSE 68; RESP 20; O2SAT 97
--- NOTE | 2022-06-21 15:12 | EXP.PAIN.PRO ---
Procedure Date: 06/21/22 Time: 15:00 Anesthesiologist:: Jonny Maradiaga CRNA Complications:: None Pre-procedure Diagnosis:: Degenerative disc disease lumbar spine multilevels. Lumbar radiculopathy. Post-procedure Diagnosis:: Same. Indications for Procedure:: Pleasant 62-year-old female comes our clinic today for lumbar epidural steroid injection at L4-5 level. Patient complains of low back pain as well as bilateral hip and leg radicular symptoms. She rates her pain 8/10 Procedure Details:: Procedure: Lumbar epidural steroid injection under fluoroscopy Informed consent was obtained and the risks and benefits of the procedure were explained to the patient. The patient was taken to the procedure room and noninvasive monitors placed, including noninvasive blood pressure cuff and pulse oximeter. The back was viewed using C-arm Fluoroscopy and prepped using Betadine as a cleansing solution and the L4-L5 interspace was palpated. Skin and subcutaneous tissues were anesthetized using lidocaine 1.5% and a 25-gauge needle. After this, an 18-gauge Touhy epidural needle was placed into the L4-L5 interspace and advanced using fluoroscopic guidance and loss of resistance to air until the epidural space was encountered. After confirmation of needle placement in the epidural space, with dye, a solution containing lidocaine 1.5%, 4 mL and Depo-Medrol 80 mg were incrementally injected into the lumbar epidural space. The patient tolerated the procedure well with no complications. The patient was observed in the Pain Clinic and then discharged home neurologically intact. Plan and Disposition:: Patient was discharged without incident
== END 2022-06-21 15:03 | disposition home or self-care (01) ==
PROVIDERS: PCP Internal Medicine Adolescent Medicine; Visit Provider Nurse Anesthetist, Certified Registered
DX: M51.16 Intervertebral disc disorders with radiculopathy, lumbar region (principal)
CPT/HCPCS: 62323; J1040

== ENCOUNTER → 2022-07-07 11:04 | Outpatient (POV) | payer MEDICARE, SELFPAY ==
--- NOTE | 2022-07-07 11:21 | A.OFFVIS_ITS ---
[facility] Pain Management SOAP Note Subjective:: Patient is a pleasant 62-year-old female who presents today for follow-up of lumbar epidural steroid injection at L4-L5 on 06/21/2022. We are currently treating the patient for degenerative disc disease of lumbar spine multilevels with lumbar radiculopathy symptoms, coccydynia, spinal stenosis. Today the patient states she has had 60 to 70% relief at least following this injection and feels like it is still helping. Patient states she has been able to increase her activity and range of motion exercises. Today the patient rates her pain a 1 out of 10. Patient denies any new trauma or injury. She denies any change to location or type of pain she experiences. Patient has seen physic al therapy in the past however it made her pain worse. Patient is prescribed gabapentin 800 mg 3 times a day and baclofen 20 mg 3 times daily. Patient denies any side effects from these medications. She states these medications do help with her nerve apathy. Her Aries is [id number]. Its been reviewed and appropriate. Review of Systems: General: No recent weight changes, no fever, no sleep disturbances Respiratory: No cough, no shortness of air, no recurring pulmonary infections Cardiovascular/peripheral vascular: No chest pain, no palpitations, no edema, no shortness of breath Gastrointestinal: No new onset incontinence, normal bowel movements reported Genitourinary: No new onset incontinence Musculoskeletal: Coccyx pain Psychiatric: [Normal mood/affect] Neurological: [Denies weakness in extremities], [denies balance issues] Objective:: Physical Exam: General: Alert and oriented x3, no acute distress, pleasant and cooperative Lungs: Respirations even and unlabored, symmetrical chest expansion Eyes: PERRL Musculoskeletal: Flexion and extension of lumbar [spine] somewhat guarded secondary to pain, [antalgic gait noted] Neurological: Speech clear, no gross sensory deficit Assessment:: Degenerative disc disease of lumbar spine multilevels with lumbar radiculopathy symptoms, coccydynia, spinal stenosis Plan:: Patient has had significant improvement of her pain symptoms following her lumbar epidural steroid injection. At this time the patient does not require any additional injective therapy. We will follow-up with the patient in 1 month. Patient will return to clinic in 1 month for reevaluation of symptoms and follow-up. Patient has been instructed to contact the clinic with any concerns before the next appointment. Dr. Farr has reviewed this note and agrees with this plan of care. This note was dictated using voice recognition software and make contain errors or omissions. [facility] Social History (Updated 06/21/22 @ 14:33 by Malena Bentley RN) Smoking Status: Never smoker alcohol intake: never substance use type: denies use current occupational status: other Travel in the last 8 weeks: Inside the [place] household members: spouse housing: house current occupational exposures/hazards: No caffeine: Yes
[2022-07-07 12:16] VITALS: BP 110/32; PULSE 65; RESP 18; TEMP 37.2; O2SAT 99; BMI 27.8
== END ==
PROVIDERS: PCP Internal Medicine Adolescent Medicine; Visit Provider Nurse Practitioner Family
DX: M51.16 Intervertebral disc disorders with radiculopathy, lumbar region (principal); M48.00 Spinal stenosis, site unspecified; M53.3 Sacrococcygeal disorders, not elsewhere classified; Z79.899 Other long term (current) drug therapy
CPT/HCPCS: 99212; G0463

== ENCOUNTER → 2022-09-06 12:59 | Outpatient (POV) | payer MEDICARE, SELFPAY ==
[2022-09-06 14:20] VITALS: BP 122/62; PULSE 64; RESP 18; O2SAT 98; BMI 29.2
--- NOTE | 2022-09-06 14:59 | A.OFFVIS_ITS ---
[facility] Pain Management SOAP Note Subjective:: Patient is a pleasant 62-year-old female who presents today for follow-up. We are currently treating the patient for degenerative disc disease of lumbar spine multilevels with lumbar radiculopathy symptoms, coccydynia, spinal stenosis. Today the patient rates her pain a 7 out of 10. Patient denies any new trauma or injury. Patient denies any change location or type of pain she experiences. Patient states her pain is in her low back with radiating symptoms into her bilateral lower extremities. Patient has had multiple lumbar epidural steroid injections in the past that provided significant relief however only lasting approximately 1 month. Patient is interested in something more long-term during today's visit. She is currently prescribed gabapentin 800 mg from an outside provider. Patient denies any side effects from this medication. She states this medication does adequately help manage her pain symptoms. Patient states she does have chronic pain related to her neuropathy and multiple sclerosis. Her Aries is [id number]. It is been reviewed and appropriate. Review of Systems: General: No recent weight changes, no fever, no sleep disturbances Respiratory: No cough, no shortness of air, no recurring pulmonary infections Cardiovascular/peripheral vascular: No chest pain, no palpitations, no edema, no shortness of breath Gastrointestinal: No new onset incontinence, normal bowel movements reported Genitourinary: No new onset incontinence Musculoskeletal: Low back pain Psychiatric: [Normal mood/affect] Neurological: [Denies weakness in extremities], [denies balance issues] Objective:: Physical Exam: General: Alert and oriented x3, no acute distress, pleasant and cooperative Lungs: Respirations even and unlabored, symmetrical chest expansion Eyes: PERRL Musculoskeletal: Flexion and extension of lumbar [spine] somewhat guarded secondary to pain, [antalgic gait noted] Neurological: Speech clear, no gross sensory deficit Assessment:: Degenerative disc disease of lumbar spine multilevels with lumbar radiculopathy symptoms, coccydynia, spinal stenosis Plan:: Patient continues to experience significant pain in her low back and legs. Patient did have limited range of motion of her lumbar spine during today's visit. I have discussed with the patient that she may benefit from repeat epidurals and that she may be a beneficial candidate for a spinal cord stimulator trial. Risk and benefits of the trial have been explained to the patient and she would like to proceed forward with this plan of care. I have given her educational handouts at today's visit. We will schedule the patient for a psychiatric evaluation with the plan to proceed forward with the spinal cord stimulator trial. Patient will follow-up in clinic following this evaluation. Patient has been instructed to contact the clinic with any concerns before the next appointment. Dr. Farr has reviewed this note and agrees with this plan of care. This note was dictated using voice recognition software and make contain errors or omissions. [facility] Disclaimer: The information contained in this section may have been updated after the patient was seen, as this information can be updated by other users. Social History (Updated 06/21/22 @ 14:33 by Malena Bentley RN) Smoking Status: Never smoker alcohol intake: never substance use type: denies use current occupational status: retired Travel in the last 8 weeks: None household members: spouse housing: house current occupational exposures/hazards: No caffeine: Yes
== END ==
PROVIDERS: PCP Internal Medicine Adolescent Medicine; Visit Provider Nurse Practitioner Family
DX: M51.16 Intervertebral disc disorders with radiculopathy, lumbar region (principal); M53.3 Sacrococcygeal disorders, not elsewhere classified; M48.00 Spinal stenosis, site unspecified; Z79.899 Other long term (current) drug therapy
CPT/HCPCS: 99212; G0463

== ENCOUNTER → 2022-09-29 13:36 | Outpatient (CLI) | payer MEDICARE, SELFPAY ==
--- NOTE | 2022-09-29 13:40 | XR_ITS ---
FINAL REPORT CLINICAL HISTORY: HIP PAIN FINDINGS: Pelvis/right hip Three views were obtained. There is no acute fracture or dislocation. There is degenerative joint disease. No soft tissue abnormality is identified. IMPRESSION: No acute process. Reviewed, Interpreted and Dictated by Danitza Lopes MD Transcribed by Arina Beach Authenticated and [facility]
--- NOTE | 2022-09-29 13:40 | XR_ITS ---
FINAL REPORT CLINICAL HISTORY: HIP PAIN FINDINGS: Left hip Three views were obtained. There is no acute fracture or dislocation. There is degenerative joint disease. No soft tissue abnormality is identified. IMPRESSION: No acute process. Reviewed, Interpreted and Dictated by Danitza Lopes MD Transcribed by Arina Beach Authenticated and [facility]
== END ==
LOC: RAD 13:37
PROVIDERS: PCP Internal Medicine Adolescent Medicine; Visit Provider Nurse Practitioner Family
DX: M25.551 Pain in right hip (principal); M25.552 Pain in left hip
CPT/HCPCS: 73502

== ENCOUNTER → 2022-10-10 11:05 | Outpatient (POV) | payer MEDICARE, SELFPAY ==
[2022-10-10 12:36] VITALS: BP 126/48; PULSE 66; RESP 18; O2SAT 97; BMI 29.2
--- NOTE | 2022-10-10 12:56 | EXP.PAIN.SOA ---
[facility] Pain Management SOAP Note Subjective:: Patient is a pleasant 62-year-old female who presents today for follow-up on psychiatric evaluation. We are currently treating the patient for degenerative disc disease of lumbar spine multilevels with lumbar radiculopathy symptoms, coccydynia and spinal stenosis. Patient denies any new trauma or injury. Patient denies any change location or type of pain she experiences. Patient has tried multiple injections in the past that provided significant improvement however most lasting approximately 1 month. At her previous visits we have discussed with the patient that she may benefit from spinal cord stimulator trial in the future. Patient states that she is interested in proceeding forward with this plan of care. Patient does state that if she ends up doing an implant down the road she would be interested in a MRI compatible device due to her history of MS and having to have frequent brain MRIs for follow-up. Patient also had complaints of bilateral hip pain and has recently had x-rays. Patient is currently prescribed gabapentin [address] Martínez's office. Patient denies any side effects from these medications. Patient is given this medication in 3-month increments. Her Aries is [id number]. Its been reviewed and appropriate. Review of Systems: General: No recent weight changes, no fever, no sleep disturbances Respiratory: No cough, no shortness of air, no recurring pulmonary infections Cardiovascular/peripheral vascular: No chest pain, no palpitations, no edema, no shortness of breath Gastrointestinal: No new onset incontinence, normal bowel movements reported Genitourinary: No new onset incontinence Musculoskeletal: Bilateral hip pain Psychiatric: [Normal mood/affect] Neurological: [Denies weakness in extremities], [denies balance issues] Objective:: Physical Exam: General: Alert and oriented x3, no acute distress, pleasant and cooperative Lungs: Respirations even and unlabored, symmetrical chest expansion Eyes: PERRL Musculoskeletal: Flexion and extension of lumbar [spine] somewhat guarded secondary to pain, [antalgic gait noted] Neurological: Speech clear, no gross sensory deficit Assessment:: Degenerative disc disease of lumbar spine multilevels with lumbar radiculopathy symptoms, coccydynia, spinal stenosis, bilateral hip osteoarthritis Plan:: Patient is experiencing significant pain in her bilateral hips with limited range of motion. Patient did have x-rays that did show degenerative joint disease with no other acute processes identified. I have discussed with the patient that she may benefit from diagnostic intra-articular hip injections. Risk and benefits were discussed with the patient. She would like to proceed forward with this plan of care. We will also submit to insurance for approval for the spinal cord stimulator trial. Patient psychiatric evaluation was deemed an appropriate candidate for this device. Patient has tried and failed conservative therapy such as oral medications, topicals, heat and ice, injective therapy, at home and exercise for longer than 6 weeks. We will submit to insurance for the spinal cord stimulator trial and diagnostic bilateral hip intra-articular injections. Patient has been instructed to contact the clinic with any concerns before the next appointment. Dr. Farr has reviewed this note and agrees with this plan of care. This note was dictated using voice recognition software and make contain errors or omissions. [facility] Disclaimer: The information contained in this section may have been updated after the patient was seen, as this information can be updated by other users. Social History (Updated 06/21/22 @ 14:33 by Malena Bentley RN) Smoking Status: Never smoker alcohol intake: never substance use type: denies use current occupational status: retired Travel in the last 8 weeks: None household members: spouse housing: house current [facility]
== END ==
PROVIDERS: PCP Internal Medicine Adolescent Medicine; Visit Provider Nurse Practitioner Family
DX: M51.16 Intervertebral disc disorders with radiculopathy, lumbar region (principal); M48.00 Spinal stenosis, site unspecified; M53.3 Sacrococcygeal disorders, not elsewhere classified; M16.0 Bilateral primary osteoarthritis of hip
CPT/HCPCS: 99212; G0463

== ENCOUNTER 2022-10-18 08:14 | Day surgery (SDC) | payer MEDICARE, SELFPAY ==
[2022-10-18 08:24] VITALS: BP 136/77; PULSE 79; RESP 18; TEMP 36.3; O2SAT 99; BMI 29.2
[2022-10-18 08:47] VITALS: BP 130/64; PULSE 77; RESP 18; O2SAT 98
[2022-10-18 08:49] VITALS: BP 130/64; PULSE 77; RESP 18; O2SAT 97
[2022-10-18 08:55] VITALS: BP 121/74; PULSE 70; RESP 18; O2SAT 99
--- NOTE | 2022-10-18 09:11 | P.PCN_ITS ---
Procedure Date: 10/18/22 Time: 08:40 Anesthesiologist:: Jonny Maradiaga CRNA Complications:: None Pre-procedure Diagnosis:: Osteoarthritis bilateral hips Post-procedure Diagnosis:: Same Indications for Procedure:: Very pleasant 62-year-old female comes our clinic today for bilateral intra-art icular hip injections. Patient complains of bilateral hip injection with ambulation, sitting and/or standing for any length of time. She rates her pain 8/10. Patient has difficulty with abduction and abduction. Procedure Details:: Details of the procedure were explained to the patient. The patient was taken to procedure room placed in the supine position. The area over the bilateral hip was cleaned using chlorhexidine as a cleansing solution. Using fluoroscopy guidance a 3 and half inch 22-gauge spinal needle was used to access the bilater al hip joint without difficulty. After negative aspiration 3 cc of 1% lidocaine +3 cc of 0.25% Marcaine and 40 mg of Depo-Medrol was injected. Needle was withdrawn. Band-Aid applied. Patient tolerated procedure without difficulty. There are no complications. Plan and Disposition:: Patient was discharged without incident.
== END 2022-10-18 08:55 | disposition home or self-care (01) ==
PROVIDERS: PCP Internal Medicine Adolescent Medicine; Visit Provider Nurse Anesthetist, Certified Registered
DX: M16.0 Bilateral primary osteoarthritis of hip (principal)
CPT/HCPCS: 20610; 77002; J1030

== ENCOUNTER → 2022-11-10 08:15 | Outpatient (POV) | payer MEDICARE, SELFPAY ==
[2022-11-10 08:26] VITALS: BP 122/63; PULSE 64; RESP 18; O2SAT 98; BMI 29.2
--- NOTE | 2022-11-10 08:35 | EXP.PAIN.SOA ---
[facility] Pain Management SOAP Note Subjective:: Is a pleasant 62-year-old female who presents today for follow-up of bilateral intra-articular hip injections on 10/18/2022 as well as stimulator trial denial. We are currently treating the patient for degenerative disc disease of lumbar spine multilevels with lumbar radiculopathy symptoms, coccydynia, hip pain, lumbar spinal stenosis. Today she states she has had at least 90 to 100% improvement following her hip injections. She states she has been able to increase her activity with decreased pain symptoms. She does rate her pain this morning a 2 out of 10. Patient denies any new injury or trauma. Patient denies any change location or type of pain she experiences. She does states that she is still having continued relief from her hip pain. Patient does have daily pain in her low back with radiating symptoms. She does describe this an aching, throbbing sensation that is worse with increased activity. Patient has had a psychiatric evaluation for a spinal cord stimulator trial and was deemed an appropriate candidate for this procedure. Patient has tried tdzg-jwy-rnpapip medications such as Tylenol and ibuprofen along with heat and ice and topicals with minimal relief. Patient has seen physical therapy years ago which made her pain worse. She does state that she continues to do exercises at home however she has not seen significant difference. Patient is currently managed with gabapentin [address] Martínez's office. Patient denies any side effects from this medication.Her Aries is [id number]. Its been reviewed and appropriate. Review of Systems: General: No recent weight changes, no fever, no sleep disturbances Respiratory: No cough, no shortness of air, no recurring pulmonary infections Cardiovascular/peripheral vascular: No chest pain, no palpitations, no edema, no shortness of breath Gastrointestinal: No new onset incontinence, normal bowel movements reported Genitourinary: No new onset incontinence Musculoskeletal: Low back pain Psychiatric: [Normal mood/affect] Neurological: [Denies weakness in extremities], [denies balance issues] Objective:: Physical Exam: General: Alert and oriented x3, no acute distress, pleasant and cooperative Lungs: Respirations even and unlabored, symmetrical chest expansion Eyes: PERRL Musculoskeletal: Flexion and extension of lumbar [spine] somewhat guarded secondary to pain, [antalgic gait noted] Neurological: Speech clear, no gross sensory deficit Assessment:: Degenerative disc disease of lumbar spine with lumbar radiculopathy symptoms, coccydynia, hip pain, lumbar spinal stenosis Plan:: Patient has had significant pain improvement in her hips following her intra-articular injections and does not need additional injective therapy at these locations at this time. Patient does continue to have low back pain with radiating symptoms into her legs. I will order the patient physical therapy for evaluation and treatment of her low back pain. I will also send her for a neurosurgery consult. We will plan on resubmitting for the spinal cord stimulator trial in the future. Patient will return to clinic in 1 month for reevaluation of symptoms and plan of care. Patient has been instructed to contact the clinic with any concerns before the next appointment. Dr. Farr has reviewed this note and agrees with this plan of care. This note was dictated using voice recognition software and make contain errors or omissions. [facility] Disclaimer: The information contained in this section may have been updated after the patient was seen, as this information can be updated by other users. Social History Smoking Status: Never smoker alcohol intake: never substance use type: denies use current occupational status: retired Travel in the last 8 weeks: None household members: spouse housing: house current occupational exp
== END ==
PROVIDERS: PCP Internal Medicine Adolescent Medicine; Visit Provider Nurse Practitioner Family
DX: M51.16 Intervertebral disc disorders with radiculopathy, lumbar region (principal); M48.061 Spinal stenosis, lumbar region without neurogenic claudication; M25.559 Pain in unspecified hip; M53.3 Sacrococcygeal disorders, not elsewhere classified
CPT/HCPCS: 99212; G0463

== ENCOUNTER → 2022-11-22 09:32 | Outpatient (CLI) | payer MEDICARE, SELFPAY ==
--- NOTE | 2022-11-22 09:36 | MR_ITS ---
FINAL REPORT CLINICAL HISTORY: BACK PAIN. PATIENT HAS MS. RIGHT SIDED LOW BACK PAIN. BILATERAL LEG PAIN, NUMBNESS, AND TINGLING. NO INJURY OR TRAUMA. FINDINGS: MRI LUMBAR SPINE W/O CONTRAST Multiplanar MR imaging of the lumbar spine was performed without contrast. On the sagittal T2-weighted images, disc degeneration and endplate changes are seen at several levels. There is 5 mm of anterolisthesis of L4 on L5. The vertebral alignment is otherwise normal. There is no evidence of fracture. The conus has an unremarkable appearance. T12-L1: There is an annular disc bulge with facet arthropathy and vertebral osteophytes. L1-2: No significant central canal stenosis or neural foraminal narrowing. L2-3: An annular disc bulge is present. L3-4: An annular disc bulge with facet arthropathy is present. There is moderate bilateral neural foraminal narrowing. A central disc protrusion indents the thecal sac. There is mild central canal stenosis with an AP diameter of the thecal sac of 9 mm. L4-5: An annular disc bulge with facet arthropathy is present. There is bilateral lateral recess stenosis. There is severe right and moderate left neural foraminal narrowing. There is moderate to severe central canal stenosis with an AP diameter of the thecal sac of 4 mm. L5-S1: There is an annular disc bulge with facet arthropathy and vertebral osteophytes. There is moderate bilateral neural foraminal narrowing. IMPRESSION: Moderate to severe central canal stenosis at L4-5 with bilateral lateral recess stenosis and severe right and moderate left neural foraminal narrowing. Mild central canal stenosis at L3-4 with moderate bilateral neural foraminal narrowing and a central disc protrusion Multilevel disc degeneration and spondylosis as described at other levels. Reviewed, Interpreted and Dictated by Michael Marte III, MD Transcribed by Harper Mahan Authenticated and [facility]
== END ==
LOC: RAD 09:33
PROVIDERS: PCP Internal Medicine Adolescent Medicine; Visit Provider Nurse Practitioner Family
DX: M54.50 Low back pain, unspecified (principal)
CPT/HCPCS: 72148; 76376

== ENCOUNTER 2022-12-05 08:30 | Outpatient (RCR) | payer MEDICARE, SELFPAY ==
--- NOTE | 2022-11-17 14:34 | HMH.PTOPEV ---
PT Outpatient Evaluation Rehab PT Outpatient Evaluation Start: 11/17/22 13:48 Freq: Status: Active Protocol: Document 11/17/22 14:19 PHONOAH (Rec: 11/17/22 14:33 PHOREZEQUIEL [id number]) E-signed By Shawn Gay, PT Outpatient Therapy Subjective History Subjective History This is the initial PT eval for Mary Carmen Heller 62 yowf who presents with c/o low back pain with intermittent B LE pain x ~ 2-3 yrs with insidious onset of symptoms. She reports having hx of MS diagnosed in 2004 as well. She had B hip injections performed which helped reduce her pain for about 3 weeks, but then it came right back. She reports any prolonged standing or walking increases her pain. She also reports PMH of DM-II. Chief Complaint Pain,Stiff Symptom Type Ache,Sharp,Burning,Shooting Symptoms Relieved By Nothing Symptoms Aggravated By Standing,Bending/Stooping, Walking Prior Functional Limitations None Current Functional Limitations Lifting,Housework,Standing, Walking Symptom Description Constant but Variable Level of pain today (0-10) 6 Pain scale - at its worst (0-10) 10 Lumbopelvic Eval Posture Lumbar Spine Posture Standing Position Decreased Lordosis Gait Observation General Gait Pattern Observation Antalgic Gait,Decrease Stride Lngth (R),Decrease Stride Lngth (L) Palapation tenderness bilateral lumbar spinal tenderness Yes paraspinal tenderness Yes: 2/4 buttock tenderness Yes: 2/4 Accessory Movement L-spine Vertebrae Accessory Movements Central P/A [place] that Elicit Symptoms L4 bilateral L5 bilateral S1 bilateral Range of Motion Lumbar Spine Active Flexion Range of 0-45 Motion (degrees) Lumbar Spine Active Extension Range of 0-5 Motion (degrees) Left Lumbar Spine Lateral Flexion Active 0-5 Range of Motion (degrees) Right Lumbar Spine Lateral Flexion 0-10 Active Range of Motion (degrees) Lumbar Spine ROM Limitations Pain Manual Muscle Test Left Knee Extension Strength Grade 5 Normal Knee Flexion Strength Grade 5 Normal Hip Flexion Strength Grade 4 Good Hip Abductio
== END 2022-12-05 08:35 | disposition home or self-care (01) ==
LOC: PT 08:30
PROVIDERS: PCP Internal Medicine Adolescent Medicine; Visit Provider Nurse Practitioner Family
DX: M54.50 Low back pain, unspecified (principal)
CPT/HCPCS: 97010; 97014; 97110; 97163; 97530; G0283

== ENCOUNTER → 2022-12-07 10:14 | Outpatient (POV) | payer MEDICARE, SELFPAY ==
[2022-12-07 10:53] VITALS: BP 117/58; PULSE 64; RESP 18; O2SAT 98; BMI 29.2
--- NOTE | 2022-12-07 11:13 | EXP.PAIN.SOA ---
[facility] Pain Management SOAP Note Subjective:: Patient is a pleasant 62-year-old female who presents today for MRI follow-up. 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 Today she rates her pain a 6 out of 10. Patient denies any new trauma or injury. Patient denies any change to location or type of pain she experiences. She states her pain is all in her low back and describes it as a aching, throbbing sensation that is worse with increased activity. Patient did previously try for a spinal cord stimulator trial however her insurance denied this. Patient did have a psychiatric evaluation that deemed her an appropriate candidate. Patient has tried [id number] Tylenol and ibuprofen along with heat and ice and topicals with no relief. Patient has been going to physical therapy currently however it is aggravating her pain symptoms. Patient has had at least 4 visits with no additional improvement. Patient is scheduled to see neurosurgery on January 06. She is currently managed with gabapentin [address] Martínez's office. Patient denies any side effects from this medication. Her Aries is [id number]. Its been reviewed and appropriate. Review of Systems: General: No recent weight changes, no fever, no sleep disturbances Respiratory: No cough, no shortness of air, no recurring pulmonary infections Cardiovascular/peripheral vascular: No chest pain, no palpitations, no edema, no shortness of breath Gastrointestinal: No new onset incontinence, normal bowel movements reported Genitourinary: No new onset incontinence Musculoskeletal: Low back pain Psychiatric: [Normal mood/affect] Neurological: [Denies weakness in extremities], [denies balance issues] Objective:: Physical Exam: General: Alert and oriented x3, no acute distress, pleasant and cooperative Lungs: Respirations even and unlabored, symmetrical chest expansion Eyes: PERRL Musculoskeletal: Flexion and extension of lumbar [spine] somewhat guarded secondary to pain, [antalgic gait noted] Neurological: Speech clear, no gross sensory deficit FINAL REPORT CLINICAL HISTORY: BACK PAIN. PATIENT HAS MS. RIGHT SIDED LOW BACK PAIN. BILATERAL LEG PAIN, NUMBNESS, AND TINGLING. NO INJURY OR TRAUMA. FINDINGS: MRI LUMBAR SPINE W/O CONTRAST? Multiplanar MR imaging of the lumbar spine was performed without contrast. On the sagittal T2-weighted images, disc degeneration and endplate changes are seen at several levels.? There is 5 mm of anterolisthesis of L4 on L5.? The vertebral alignment is otherwise normal.? There is no evidence of fracture.? The conus has an unremarkable appearance.? T12-L1:? There is an annular disc bulge with facet arthropathy and vertebral osteophytes.? L1-2:? No significant central canal stenosis or neural foraminal narrowing.? L2-3:? An annular disc bulge is present.? L3-4:? An annular disc bulge with facet arthropathy is present.? There is moderate bilateral neural foraminal narrowing.? A central disc protrusion indents the thecal sac. There is mild central canal stenosis with an AP diameter of the thecal sac of 9 mm.? L4-5:? An annular disc bulge with facet arthropathy is present.? There is bilateral lateral recess stenosis.? There is severe right and moderate left neural foraminal narrowing. There is moderate to severe central canal stenosis with an AP diameter of the thecal sac of 4 mm.? L5-S1:? There is an annular disc bulge with facet arthropathy and vertebral osteophytes.? There is moderate bilateral neural foraminal narrowing. IMPRESSION: Moderate to severe central canal stenosis at L4-5 with bilateral lateral recess stenosis and severe right and moderate left neural foraminal narrowing.? Mild central canal stenosis at L3-4 with moderate bilateral neural foraminal narrowing and a central disc protrusion? Multilevel disc degeneration and spondylosi
== END | disposition home or self-care (01) ==
PROVIDERS: PCP Internal Medicine Adolescent Medicine; Visit Provider Nurse Practitioner Family
DX: M51.16 Intervertebral disc disorders with radiculopathy, lumbar region (principal); M48.061 Spinal stenosis, lumbar region without neurogenic claudication; M53.3 Sacrococcygeal disorders, not elsewhere classified; M25.559 Pain in unspecified hip
CPT/HCPCS: 99212; G0463

== ENCOUNTER → 2023-01-10 07:07 | Outpatient (CLI) | payer MEDICARE, SELFPAY ==
--- NOTE | 2023-01-10 07:18 | CT_ITS ---
FINAL REPORT TECHNIQUE: Axial images were obtained of the lumbar spine by computed tomography. Coronal and sagittal reconstruction process performed. This study was performed with techniques to keep radiation doses as low as reasonably achievable (ALARA). Individualized dose reduction techniques using automated exposure control or adjustment of mA and/or kV according to the patient''s size were employed. CLINICAL HISTORY: LOW BACKPAIN,SPINAL STENOSIS,SYNOVIAL CYST COMPARISON: MRI lumbar spine dated 11/22/2022 FINDINGS: Lumbar vertebrae show normal height. There is moderate disc space narrowing at L5-S1. There is grade 1 spondylolisthesis of L4 on L5. L1-2: No significant spinal canal compromise or neural foraminal narrowing. L2-3: No significant spinal canal compromise or neural foraminal narrowing. L3-4: Mild diffuse disc bulge and endplate hypertrophy with moderate spinal canal compromise and moderate bilateral neural foraminal narrowing. L4-5: Moderate disc bulge accentuated by spondylolisthesis. Bilateral facet hypertrophy. High-grade spinal canal stenosis and moderate bilateral neural foraminal narrowing. L5-S1: Moderate diffuse disc bulge with endplate hypertrophy and moderate to high-grade bilateral neural foraminal narrowing, right greater than left. IMPRESSION: Advanced changes of degenerative disc disease at L3-4, L4-5 and L5-S1 with degenerative spondylolisthesis of L4 on L5 and high-grade spinal canal stenosis at L4-5 with significant bilateral neural foraminal narrowing at L3-4, L4-5, and L5-S1, more evident on the right at L5-S1. Reviewed, Interpreted and Dictated by Augustine Blackman MD Transcribed by Isabel Ha Authenticated and . [facility]
== END ==
LOC: RAD 07:07
PROVIDERS: PCP Internal Medicine Adolescent Medicine; Visit Provider Physician Assistant Medical
DX: M54.50 Low back pain, unspecified (principal); M48.062 Spinal stenosis, lumbar region with neurogenic claudication; M43.16 Spondylolisthesis, lumbar region; M71.38 Other bursal cyst, other site
CPT/HCPCS: 72131

== ENCOUNTER → 2023-01-13 08:12 | Outpatient (CLI) | payer MEDICARE, SELFPAY ==
--- NOTE | 2023-01-13 08:17 | MM_ITS ---
PROCEDURE INFORMATION: Exam: MG Bilateral Screening 3D Mammography Exam date and time: 01/13/2023 8:16 AM Age: 62 years old Clinical indication: Screening mammogram TECHNIQUE: Imaging protocol: Bilateral Screening tomosynthesis and 2D mammography including computer-aided detection (CAD) when performed. COMPARISON: 1. MG MM DIG SCREENING MAMM BI W/CAD 10/09/2020 10:17 AM 2. MG MM DIG SCREENING MAMM BI W/CAD 04/12/2019 9:07 AM 3. MG DMSB DIG MAMM-SCREEN DESTINY W/CAD 03/28/2017 8:57 AM 4. MG DMSB DIG MAMM-SCREEN DESTINY 03/29/2016 8:59 AM FINDINGS: MAMMOGRAPHY: Breast composition: There are scattered areas of fibroglandular density. Mass: None. Architectural distortion: No new or suspicious architectural distortion. Calcifications: Stable benign-appearing calcifications are present. No new or suspicious cluster of microcalcifications have developed. Asymmetric density: No new or suspicious asymmetric density is present Skin thickening: None. Axillary adenopathy: None. IMPRESSION: No mammographic evidence of malignancy. Recommend annual screening mammography unless otherwise clinically indicated. ASSESSMENT: BI-RADS category 2: Benign
== END ==
PROVIDERS: PCP Internal Medicine Adolescent Medicine; Visit Provider Nurse Practitioner Family
DX: Z12.31 Encounter for screening mammogram for malignant neoplasm of breast (principal)
CPT/HCPCS: 77063; 77067

== ENCOUNTER → 2023-03-22 11:55 | Outpatient (CLI) | payer MEDICARE, SELFPAY ==
--- NOTE | 2023-03-22 12:11 | ECG_ITS ---
APPROVED REPORT Exam: Resting ECG HR:74 bpm ECG Measurements Heart Rate 74 AXES MT 155 P 12 QRSd 102 QRS 44 QT 402 T -2 QTc 430 Conclusion SINUS RHYTHM LOW QRS VOLTAGE IN PRECORDIAL LEADS [QRS DEFLECTION < 1.0 mV IN CHEST LEADS] NONSPECIFIC T-WAVE ABNORMALITY BORDERLINE ECG UNCONFIRMED REPORT Electronically signed by : Jose Miller MD 03/23/2023 21:36:55
== END ==
LOC: RT 11:59
PROVIDERS: PCP Internal Medicine Adolescent Medicine; Visit Provider Physician Assistant Medical
DX: Z01.810 Encounter for preprocedural cardiovascular examination (principal); M48.062 Spinal stenosis, lumbar region with neurogenic claudication; D69.9 Hemorrhagic condition, unspecified
CPT/HCPCS: 93005

== ENCOUNTER → 2023-06-16 13:29 | Outpatient (CLI) | payer MEDICARE, SELFPAY | PROVIDERS: PCP Internal Medicine Adolescent Medicine; Visit Provider Nurse Practitioner Family | DX: R19.7 Diarrhea, unspecified (principal) ==

== ENCOUNTER → 2023-06-19 10:35 | Outpatient (CLI) | payer MEDICARE, SELFPAY ==
[2023-06-19 15:25] LABS: Occult Blood,Stool Negative (Negative)
== END ==
PROVIDERS: Internal Medicine Adolescent Medicine; PCP Nurse Practitioner Family; Visit Provider Nurse Practitioner Family
DX: R19.7 Diarrhea, unspecified (principal)
CPT/HCPCS: 82272; G0328

== ENCOUNTER → 2023-08-07 07:55 | Outpatient (CLI) | payer MEDICARE, SELFPAY ==
--- NOTE | 2023-08-07 07:58 | CT_ITS ---
FINAL REPORT TECHNIQUE: Thin section axial CT with coronal and sagittal reconstruction without IV contrast CLINICAL HISTORY: ORAL PAIN,MANDIBULAR SWELLING COMPARISON: None FINDINGS: No fracture or bone destruction is present. Paranasal sinuses are clear other than a small retention cyst in a right ethmoid air cell. The TMJs are intact. IMPRESSION: No evidence of facial fracture or bone destruction. Small retention cyst and a right ethmoid air cell. Reviewed, Interpreted and Dictated by Deon Rubin MD Transcribed by Meagan Pham Authenticated and [facility]
== END ==
LOC: RAD 07:55
PROVIDERS: PCP Nurse Practitioner Family; Visit Provider Nurse Practitioner Family
DX: K13.79 Other lesions of oral mucosa (principal); R22.0 Localized swelling, mass and lump, head
CPT/HCPCS: 70486

== ENCOUNTER 2023-10-13 09:33 | Outpatient (CLI) | payer MEDICARE, SELFPAY ==
--- NOTE | 2023-10-13 09:40 | FL_ITS ---
FINAL REPORT CLINICAL HISTORY: . FINDINGS: UPPER GI Exam/Esophagram HISTORY: Epigastric pain. PROCEDURE: The patient ingested barium. Spot and overhead films were obtained. FINDINGS: There is normal esophageal mucosa. There is a small sliding-type hiatal hernia. There is marked gastroesophageal reflux. Peristalsis is normal. There are postoperative changes of gastric sleeve surgery. The rugal fold pattern of the stomach is normal. The duodenal bulb is normal. IMPRESSION: Small sliding-type hiatal hernia and marked gastroesophageal reflux. Postoperative changes of the stomach. Reviewed, Interpreted and Dictated by Deon Rubin MD Transcribed by NORAH Limon Authenticated and [facility]
[2023-10-13] MEDS: BARIUM SULFATE (E-Z-HD 340GM);135ML BOTTLE 135 ML PO (10:23)
[2023-10-13] MEDS: E-Z-GASII EFFERVESCENT GRANULES;1PK 1 EACH PO (10:23)
[2023-10-13] MEDS: BARIUM SULFATE(LIQUID E-Z-PAQUE);355ML BOTTLE 355 ML PO (10:23)
== END 2023-10-13 23:59 ==
LOC: RAD 09:33
PROVIDERS: PCP Nurse Practitioner Family; Visit Provider Nurse Practitioner Family
DX: R09.A2 Foreign body sensation, throat (principal); R13.19 Other dysphagia; Z90.3 Acquired absence of stomach [part of]
CPT/HCPCS: 74221; 74246

== ENCOUNTER 2025-09-10 12:44 | Outpatient (CLI) | payer MEDICARE, SELFPAY ==
--- OUTSIDE RECORDS SUMMARY | 2024-12-14 16:30 | XMS_ITS ---
Author Organization [facility] Address [address] [place] [address] Care Team Providers Care Online Community Manager Name Role Phone Jose Miller Primary Care Provider [phone] Linda Fraire [phone] Migration, Provider Unavailable Unavailable REASON FOR VISIT [facility] To [facility] Conversion Encounter Medications Medication SIG (Take, Route, Frequency, Duration) Notes Start Date End Date Status Baclofen 20 MG Tablet 1 tab(s) orally 4 times daily; Duration: 90 days 03/04/2016 Active Omeprazole 40 MG Capsule Delayed Release 1 cap(s) orally once a day; Duration: 90 days Active buPROPion HCl ER (XL) 300 MG Tablet Extended Release 24 Hour 1 tab(s) orally once a day; Duration: 90 days Active Citalopram Hydrobromide 40 MG Tablet 1 tablet by mouth once a day; Duration: 90 days Active Gabapentin 800 MG Tablet 1 tablet orally 3 times a day; Duration: 90 days 11/01/2024 Active Famotidine 40 MG Tablet 1 tab(s) orally once a day (at bedtime); Duration: 90 days Active Simvastatin 40 MG Tablet 1 tab(s) orally once a day (at bedtime); Duration: 90 days Active Metoprolol Tartrate 50 MG Tablet TAKE 1 TABLET TWICE DAILY; Duration: 90 Active Mupirocin 2 % Ointment 1 tasia applied topically 3 times a day; Duration: 5 days 11/28/2024 Active metFORMIN HCl 500 MG Tablet 1 tab orally 2 times a day Active TEST STRIPS AND LANCETS NA PER INSURANCE COVERAGE WITH GLUCOMETER ONCE A DAY TESTING NA; Duration: 30 DAYS *Please review for potential replacement for e-prescription and drug interaction check* 02/01/2024 Active GLUCOMETER NA PER INSURANCE COVERAGE USE FOR ONCE A DAY TESTING; Duration: 30 DAYS *Please review for potential replacement for e-prescription and drug interaction check* 02/01/2024 Active Senexon-S 8.6-50 MG Tablet 2 tab(s) orally once a day (at bedtime); Duration: 90 days Active Ferrous Sulfate 325 (65 Fe) MG Tablet 1 tab(s) orally Mon, Wed and Fri; Duration: 30 days 06/12/2023 Active Vitamin B 12 500 MCG Tablet 1 tab(s) orally four times weekly 03/11/2016 Active STOOL SOFTENER WITH LAXATIVE *Please review for potential replacement for e-prescription and drug interaction check* Active Calcium 500 MG 1,000MG TWICE DAILY *Please review and pick correct strength-formulatio n from ScreenTag options. If intended option is not shown, discontinue and re-order from Quick Search* Active Vitamin C 1000 MG Tablet 1 tab(s) orally once a day Active D-3 VITAMIN 1000IU 90459 UNITS- 1 TAB PO QD *Please review for potential replacement for e-prescription and drug interaction check* Active Centrum THERAPEUTIC MULTIPLE VITAMINS WITH MINERALS TABLET, CHEWABLE 1 TAB(S) CHEWED ONCE A DAY *Please review and pick correct strength-formulatio n from ScreenTag options. If intended option is not shown, discontinue and re-order from Quick Search* Active Vitamin B1 250 MG TABLET 1 TAB(S) ORALLY ONCE A DAY *Please review and pick correct strength-formulatio n from ScreenTag options. If intended option is not shown, discontinue and re-order from Quick Search* Active Encounters Encounter Location Date Provider Diagnosis [facility] [address] [place] [address] 12/14/2024 Provider Migration Type 2 diabetes mellitus with other specified complication E11.69 Assessments Encounter Date Diagnosis (ICD Code) Assessment Notes Treatment Notes Treatment Clinical Notes Section Notes 12/14/2024 Type 2 diabetes mellitus with other specified complication (ICD-10 - E11.69) Plan Of Treatment Medication Medication Name Sig Start Date Stop Date Notes Mupirocin 2 % Ointment 1 tasia applied top ically 3 times a day; Duration: 5 days 11/28/2024 metFORMIN HCl 500 MG Tablet 1 tab orally 2 times a day Next Appt Details Provider Name:Linda Vanegas ce, 01/06/2026 08:00:00 AM, [address], [address], [place], [address], Progress Notes * Mary Carmen HELLER MDOB:[birth year] (65 yo F)Acc No.[id number]:12/14/2024 Patient: Heladio haskins Mary Carmen Miguel Ángel Provider: [place] Horne :1960 A ge:64 Y S ex:Female Date:12/14/2024 Address:[address] [place], [place] [id number] Pcp:Jose Miller Subjective: * Chief Complaints: * M ultum To [facility] Conversion Encounter * Medications: T akingVitamin B1 250 MG TABLET 1 TAB(S) ORALLY ONCE A DAY , Notes to Pharmacist: *Please review and pick correct strength-formulation from Tagorizespan options. If intended option is not shown, discontinue and re-order from Quick Search*Calcium 500 MG 1,000MG TWICE DAILY , Notes to Pharmacist: *Please review and pick correct strength-formulation from Tagorizespan options. If intended option is not shown, discontinue and re-order from Quick Search*STOOL SOFTENER WITH LAXATIVE , Notes to Pharmacist: *Please review for potential replacement for e-prescription and drug interaction check*Centrum THERAPEUTIC MULTIPLE VITAMINS WITH MINERALS TABLET, CHEWABLE 1 TAB(S) CHEWED ONCE A DAY , Notes to Pharmacist: *Please review and pick correct strength-formulation from Tagorizespan options. If intended option is not shown, discontinue and re-order from Quick Search*D-3 VITAMIN 1000IU 92297 UNITS- 1 TAB PO QD , Notes to Pharmacist: *Please review for potential replacement for e- prescription and drug interaction check*Vitamin C 1000 MG Tablet 1 tab(s) orally once a day Vitamin B 12 500 MCG Tablet 1 tab(s) orally four times weekly Ferrous Sulfate 325 (65 Fe) MG Tablet 1 tab(s) orally Mon, Wed and Fri Senexon-S 8.6-50 MG Tablet 2 tab(s) orally once a day (at bedtime) GLUCOMETER NA PER INSURANCE COVERAGE USE FOR ONCE A DAY TESTING , Notes to Pharmacist: *Please review for potential replacement for e-prescription and drug interaction check*TEST STRIPS AND LANCETS NA PER INSURANCE COVERAGE WITH GLUCOMETER ONCE A DAY TESTING NA , Notes to Pharmacist: *Please review for potential replacement for e-prescription and drug interaction check*Metoprolol Tartrate 50 MG Tablet TAKE 1 TABLET TWICE DAILY Simvastatin 40 MG Tablet 1 tab(s) orally once a day (at bedtime) Famotidine 40 MG Tablet 1 tab(s) orally once a day (at bedtime) Gabapentin 800 MG Tablet 1 tablet orally 3 times a day Citalopram Hydrobromide 40 MG Tablet 1 tablet by mouth once a day buPROPion HCl ER (XL) 300 MG Tablet Extended Release 24 Hour 1 tab(s) orally once a day Omeprazole 40 MG Capsule Delayed Release 1 cap(s) orally once a day Baclofen 20 MG Tablet 1 tab(s) orally 4 times daily Taking Vitamin B1 250 MG TABLET 1 TAB(S) ORALLY ONCE A DAY , Notes to Pharmacist: *Please review and pick correct strength-formulation from ScreenTag options. If intended option is not shown, discontinue and re-order from Quick Search*Taking Calcium 500 MG 1,000MG TWICE DAILY , Notes to Pharmacist: *Please review and pick correct strength-formulation from ScreenTag options. If intended option is not shown, discontinue and re-order from Quick Search*Taking STOOL SOFTENER WITH LAXATIVE , Notes to Pharmacist: *Please review for potential replacement for e-prescription and drug interaction check*Taking Centrum THERAPEUTIC MULTIPLE VITAMINS WITH MINERALS TABLET, CHEWABLE 1 TAB(S) CHEWED ONCE A DAY , Notes to Pharmacist: *Please review and pick correct strength-formulation from ScreenTag options. If intended option is not shown, discontinue and re-order from Quick Search*Taking D-3 VITAMIN 1000IU 35284 UNITS- 1 TAB PO QD , Notes to Pharmacist: *Please review for potential replacement for e-prescription and drug interaction check*Taking Vitamin C 1000 MG Tablet 1 tab(s) orally once a day Taking Vitamin B 12 500 MCG Tablet 1 tab(s) orally four times weekly Taking Ferrous Sulfate 325 (65 Fe) MG Tablet 1 tab(s) orally Mon, Wed and Fri Taking Senexon-S 8.6-50 MG Tablet 2 tab(s) orally once a day (at bedtime) Taking GLUCOMETER NA PER INSURANCE COVERAGE USE FOR ONCE A DAY TESTING , Notes to Pharmacist: *Please review for potential replacement for e-prescription and drug interaction check*Taking TEST STRIPS AND LANCETS NA PER INSURANCE COVERAGE WITH GLUCOMETER ONCE A DAY TESTING NA , Notes to Pharmacist: *Please review for potential replacement for e-prescription and drug interaction check*Taking Metoprolol Tartrate 50 MG Tablet TAKE 1 TABLET TWICE DAILY Taking Simvastatin 40 MG Tablet 1 tab(s) orally once a day (at bedtime) Taking Famotidine 40 MG Tablet 1 tab(s) orally once a day (at bedtime) Taking Gabapentin 800 MG Tablet 1 tablet orally 3 times a day Taking Citalopram Hydrobromide 40 MG Tablet 1 tablet by mouth once a day Taking buPROPion HCl ER (XL) 300 MG Tablet Extended Release 24 Hour 1 tab(s) orally once a day Taking Omeprazole 40 MG Capsule Delayed Release 1 cap(s) orally once a day Taking Baclofen 20 MG Tablet 1 tab(s) orally 4 times daily Assessment: * Assessment: 1. T ype 2 diabetes mellitus with other specified complication - E11.69 (Primary) ? Plan: * Treatment: 2. O thers Start Mupirocin Ointment, 2 %, 1 tasia, applied topically, 3 times a day, 5 days, 1, Refills 1. ? Billing Information: * Procedure Codes: * Electronic signature of Prov matr Migration on 09/10/2025 at 12:47 PM EST Sign off status: Pending * Provider: [place] summers Migration Date: 0 12/14/2024 Generated for Nacho garcia/Gretta/Tiffanie on: 1 12:47 PM EST
--- OUTSIDE RECORDS SUMMARY | 2025-08-13 08:30 | XMS_ITS | Encounter Summary ---
[facility] Address [address] [place] [address] Care Team Providers Care Inspector Health Care Facilities Name Role Phone Linda Fraire ISRA Primary Care Provid er Reason for Visit * Reason Comments Multiple Sclerosis Encounter Details Date Type Department Care Team (Late st Contact Info) Description 08/13/2025 8:30 AM EST Office Visit [facility] NE[facility] [address] [place] [address] Jerman Bradford MD [address] [facility] [address] [place] [address] Multiple sclerosis (Primary Dx); Peripheral sensory neuropathy due to type 2 diabetes mellitus Social History Tobacco Use Types Packs/Day Years Used Date Smoking Tobacco: Never Passive Smoke Exposure: Never Smokeless Tobacco: Never Tobacco Cessation:Counseling Given: No Alcohol Use Standard Drinks/Week Comments No 0 (1 standard drink = 0.6 oz pur e alcohol) [facility] Utilities Answer Date Recorded In the past 12 months has [place], gas, oil, or water [employer] threatened to shut off services in your home? No 10/04/2024 AUDIT-C Answer Date Recorded Q1: How often do you have a drink containing alcohol? Never 10/03/2024 Q2: How many drinks containi ng alcohol do you have on a typical day when you are drinking? Patient does not drink Q3: How often do you have si x or more drinks on one occasion? Never 10/03/2024 Overall Financial Resource Strain (CARDIA) Answe r Date Recorded How hard is it for you to pa y for the very basics like food, housing, medical care, and heating? Not hard at all 10/04/2024 [facility] Port of Occupat ional Health - Occupational Stress Questionnaire Answer Date Recorded Do you feel stress - tense, restless, nervous, or anxious, or unable to sleep at night because your mind is troubled all the time - these days? Not at all 10/04/2024 Exercise Vital Sign Answer Date Recorde d On average, how many days pe r week do you engage in moderate to strenuous exercise (like a brisk walk)? 0 days 10/04/2024 On average, how many minutes do you engage in exercise at this level? 0 min 10/04/2024 Hunger Vital Sign Answer Date Recorded Within the past 12 months, y ou worried that your food would run out before you got the money to buy more. Never true 10/04/19 25 Within the past 12 months, t he food you bought just didn't last and you didn't have money to get more. Never true 10/04/2024 PRAPARE - Transportation Answer Date Re corded In the past 12 months, has l ack of transportation kept you from medical appointments or from getting medications? No 09/12 In the past 12 months, has l ack of transportation kept you from meetings, work, or from getting things needed for daily living? No 10/04/2024 Abuse Screen Answer Date Recorded Feels Unsafe at Home or Work/School no 10/03/2024 Feels Threatened by Someone no 09/12 Does Anyone Try to Keep You From Having Contact with Others or Doing Things Outside Your Home? no 10/03/2024 Physical Signs of Abuse Present no 10/03/2024 Housing Stability Answer Date Recorded Current Living Arrangements home 09/12 Potentially Unsafe Housing Conditions none 10/04/2024 Family and Community Support Answer Jimbo e Recorded If for any reason you need h elp with day-to-day activities such as bathing, preparing meals, shopping, managing finances, etc., do you get the help you need? I get all the help I need 10/04/2024 How often do you feel lonely or isolated from those around you? Patient declined 10/04/2024 Employment Answer Date Recorded Do you want help finding or keeping work or a akbar b? Patient declined 10/04/2024 Disabilities Answer Date Recorded Difficulty Concentrating, Remembering or Making Decisions no 10/04/2024 Difficulty Managing Errands Independently no 10/04/2024 Education Answer Date Recorded Do you want help with school or training? For example, starting or completing job training or getting a high school diploma, GED or equivalent Patient declined 10/04/2024 Preferred Language Belarusian 10/04/2024 PHQ-2 Answer Date Recorded Patient Health Questionnaire-2 Score 0 10/04/2024 Comments No Sex and Gender Information Value Date Recorded Sex Assigned at Female 12/27/2023 8:30 AM EDT Legal Sex Female 10:03 AM EDT Gender Identity Female 12/27/2023 8:30 AM EDT Sexual Orientation Straight 12/27/2023 8: 30 AM EDT documented as of this encounter Last Filed Vital Signs Vital Sign Reading Time Taken Comments Blood Pressure 106/68 08/13/2025 8:16 AM EST Pulse 60 08/13/2025 8:16 AM EST Temperature - - Respiratory Rate - - Oxygen Saturation 96% 08/13/2025 8:16 AM EST Inhaled Oxygen Concentration - - Weight 78.7 kg (173 lb 6.4 oz) 08/13/2025 8:16 A M EST Height 171.5 cm (5' 7.5 ) 08/13/2025 8:16 AM EST Body Mass Index 26.76 08/13/2025 8:16 AM EST documented in this encounter Progress Notes * Jerman Bradford MD - 08/13/2025 8:47 AM ESTAssociated Problem(s): Peripheral sensory neuropathy due to type 2 diabetes mellitus Sx stable Continue baclofen 20 mg TID GBP 800 mg TID * Jerman Bradford MD - 08/13/2025 8:46 AM ESTAssociated Problem(s): Multiple sclerosis SPMS HEP * Jerman Bradford MD - 08/13/2025 8:30 AM EST Images from the original note were not included. Chief Complaint Multiple Sclerosis Subjective Mary Carmen Heller presents to [facility] NE[facility] History of Present Illness 65 y.o. female returns in follow up. Last visit on 03/13/25 continued GBP, baclofen. MRI B/C, 03/30/25 mild T2 lesion load, C3 cord lesion Feels unsteady when arising. Uses a cane for balance. Finished PT with some improvement in LE strength. First sx of hand numbness, dropping objects, fatigue. Sx of dizziness, unsteady balance. GBP 800 mg TID for pain in feet from DMPN. Baclofen controls spasms in legs. Dx DM 2004. Reviewed medical records: Dx MS 2004. Uses a cane, unsteady gait, SPMS DMT: Esthela Amaya Objective Vital Signs: BP 106/68 Pulse 60 Ht 171.5 cm (67.5 ) Wt 78.7 kg (173 lb 6.4 oz) SpO2 96% BMI 26.76 kg/m?? Estimated body mass index is 26.76 kg/m?? as calculated from the following: Height as of this encounter: 171.5 cm (67.5 ). Weight as of this encounter: 78.7 kg (173 lb 6.4 oz). Neurological Exam Mental Status Awake, alert and oriented to person, place and time. Oriented to person, place and time. Speech is normal. Language is fluent with no aphasia. Attention and concentration are normal. Fund of knowledge is appropriate for level of education. Cranial Nerves CN III, IV, : Extraocular movements intact bilaterally. Pupils equal round and reactive to light bilaterally. CN V: Facial sensation is normal. CN VII: Full and symmetric facial movement. CN IX, X: Palate elevates symmetrically CN XI: Shoulder shrug strength is normal. CN XII: Tongue midline without atrophy or fasciculations. Motor Strength is 5/5 in all four extremities except as noted. Right Left Hip flexion 4 Knee flexion 4 Knee extension 4 Plantarflexion 4 Dorsiflexion 4 Sensory Light touch abnormality: Pinprick abnormality: Decreased pp and lt knees down left Mid thigh on right . Reflexes Right Left Brachioradialis 0 0 Biceps 0 0 Triceps 0 0 Patellar 0 0 Achilles 0 0 Coordination Left: Omma-uh-edwf abnormality: R Leg ataxic . Gait Casual gait: Wide stance. Reduced stride length. Ataxic gait. L LE . Physical Exam Eyes: Extraocular Movements: Extraocular movements intact. Pupils: Pupils are equal, round, and reactive to light. Neurological: Deep Tendon Reflexes: Reflex Scores: Tricep reflexes are 0 on the right side and 0 on the left side. Bicep reflexes are 0 on the right side and 0 on the left side. Brachioradialis reflexes are 0 on the right side and 0 on the left side. Patellar reflexes are 0 on the right side and 0 on the left side. Achilles reflexes are 0 on the right side and 0 on the left side. Psychiatric: Speech: Speech normal. Result Review : The following data was reviewed by: Jerman Bradford MD on 08/13/2025: Common labs 01/03/2025 08:29 04/04/2025 08:30 07/07/2025 10:30 Common Labs Glucose 102 103 86 BUN 10 12 10 Creatinine 0.83 0.96 0.79 Sodium 142 142 144 Potassium 4.7 4.4 4.4 Chloride 107 106 109 Calcium 9.6 9.5 9.2 Albumin 4.1 4.2 3.8 Total Bilirubin 0.4 0.3 0.3 Alkaline Phosphatase 80 89 84 AST (SGOT) 23 53 44 ALT (SGPT) 19 73 49 WBC 4.6 5.0 3.8 Hemoglobin 11.4 11.2 10.9 Hematocrit 36.9 35.4 33.3 Platelets 222 198 189 Assessment and Plan Diagnoses and all orders for this visit: 1. Multiple sclerosis (Primary) Assessment & Plan: SPMS HEP Orders: - gabapentin (NEURONTIN) 800 MG tablet; Take 1 tablet by mouth 3 (Three) Times a Day. Dispense: 270tablet; Refill: 1 2. Peripheral sensory neuropathy due to type 2 diabetes mellitus Assessment & Plan: Sx stable Continue baclofen 20 mg TID GBP 800 mg TID Orders: - gabapentin (NEURONTIN) 800 MG tablet; Take 1 tablet by mouth 3 (Three) Times a Day. Dispense: 270tablet; Refill: 1 Other orders - baclofen (LIORESAL) 20 MG tablet; Take 1 tablet by mouth 3 (Three) Times a Day. Dispense: 270 tablet; Refill: 3 Follow Up No follow-ups on file. Patient was given instructions and counseling regarding her condition or for health maintenance advice. Please see specific information pulled into the AVS if appropriate. documented in this encounter Plan of Treatment Upcoming Encounters Date Type Department Care Team (Late st Contact Info) Description 10/07/2025 8:00 AM EST Office Visit [facility] SURGERY [address] [facility] [address] [place] [address] Dejah Beltran APRN [address] [address] 11/19/2025 8:30 AM EDT Office Visit [facility] [address] [place] [address] Jerman Bradford MD [address] [facility] [address] [place] [address] documented as of this encounter Visit Diagnoses Diagnosis Multiple sclerosis- Primary Peripheral sensory neuropathy due to type 2 diabetes mellitus documented in this encounter Care Teams Inspector Health Care Facilities Relationship Specialty Start Date End Date Linda Fraire, ISRA [address] [facility] [address] [place] [address] PCP - General Family Medicine 12/27/23 documented as of this encounter
--- OUTSIDE RECORDS SUMMARY | 2025-09-10 12:47 | XMS_ITS | Encounter Summary ---
[facility] Organization [facility] Address [address] [place] [id number] Care Team Providers Care Manager Infrastructure Name Role Phone Linda Fraire ISRA Primary Care Provid er Encounter Details Date Type Department Care Team (Late st Contact Info) Description 03/11/2014 External CPT II MANAGER SUPPORT SERVICES - [facility] Social History Tobacco Use Types Packs/Day Years Used Date Smoking Tobacco: Never Assessed Comments Unknown Sex and Gender Information Value Date Recorded Sex Assigned at Female 12/27/2023 8:30 AM EDT Legal Sex Female 10:03 AM EDT Gender Identity Female 12/27/2023 8:30 AM EDT Sexual Orientation Straight 12/27/2023 8: 30 AM EDT documented as of this encounter Plan of Treatment Upcoming Encounters Date Type Department Care Team (Late st Contact Info) Description 10/07/2025 8:00 AM EST Office Visit [facility] [address] [place] [address] Dejah Beltran APRN [address] [place] [id number] 11/19/2025 8:30 AM EDT Office Visit [facility] [address] [place] [address] Jerman Bradford MD [address] [place] [address] documented as of this encounter Visit Diagnoses Not on filedocumented in this encounter Care Teams Manager Infrastructure Relationship Specialty Start Date End Date Linda Fraire APRN [address] [facility] [address] [place] [address] PCP - General Family Medicine 12/27/23 documented as of this encounter
--- OUTSIDE RECORDS SUMMARY | 2025-09-10 12:47 | XMS_ITS | Encounter Summary ---
Author Organization [facility] Address [address] [place] [id number] Care Team Providers Care Bloom Conveyor Operator Name Role Phone Linda Fraire ISRA Primary Care Provid er Encounter Details Date Type Department Care Team (Late st Contact Info) Description 01/07/2015 External CPT II MANUAL TRAINING TEACHER - [facility] Social History Tobacco Use [...] Description 10/07/2025 8:00 AM EST Office Visit [facility]ERY [address] [place] [address] Dejah Beltran APRN [address] [place] [id number] 11/19/2025 8:30 AM EDT Office Visit [facility] [address] [place] [address] Jerman Bradford MD [address] [place] [address] documented as of this encounter Visit Diagnoses Not on filedocumented in this encounter Care Teams Bloom Conveyor Operator Relationship Specialty Start Date End Date Linda Fraire APRN [address] [facility] [address] [place] [address] PCP - General Family Medicine 12/27/23 documented as of this encounter
--- OUTSIDE RECORDS SUMMARY | 2025-09-10 12:47 | XMS_ITS | Clinical Summary ---
Author Organization [facility] ([place], [place], [place], [place], [place]) Address [address] [place] [address] Care Team Providers Care Fuel Cell Builder Name Role Phone Jose Miller MD Primary Care Provider Allergies No known active allergies Medications gabapentin (NEURONTIN) 800 MG tabletIndications:M ultiple sclerosis Take 1.5 tablets (1,200 mg total) by mouth 3 (three) times daily for 180 days. Max Daily Amount: 3,600 mg 405 tablet 1 2 Active baclofen (LIORESAL) 20 MG tablet TAKE 1 TABLET FOUR TIMES DAILY NEEDED 360 tablet 3 Active buPROPion XL (WELLBUTRIN XL) 300 MG 24 hr tablet Take 1 tablet (300 mg total) by mouth daily. 4 Active citalopram (CeleXA) 40 MG tablet Take 1 tablet (40 mg total) by mouth daily. 4 Active famotidine (PEPCID) 40 MG tablet Take 1 tablet (40 mg total) by mouth daily. 4 Active Tradjenta 5 mg tab tablet Take 1 tablet (5 mg total) by mouth daily. 5 Active metFORMIN (GLUCOPHAGE) 500 MG tablet Take 1 tablet (500 mg total) by mouth 2 (two) times daily. 4 Active metoprolol tartrate (LOPRESSOR) 50 MG tablet Take 1 tablet (50 mg total) by mouth 2 (two) times daily. 4 Active omeprazole (PriLOSEC) 40 MG capsule Take 1 capsule (40 mg total) by mouth daily. 4 Active ondansetron (ZOFRAN-ODT) 4 MG disintegrating tablet Take by mouth. 5 Active oxyCODONE (ROXICODONE) 5 MG immediate release tablet Take by mouth. 5 Active simvastatin (ZOCOR) 40 MG tablet Take 1 tablet (40 mg total) by mouth nightly. 4 Active Active Problems Problem Noted Date Diagnosed Date B12 deficiency 01/18/2023 Avitaminosis D 01/18/2023 Benign paroxysmal positional vertigo, unspecified laterality 01/18/2023 Multiple sclerosis 01/18/2023 Social History Tobacco Use Types Packs/Day Years Used Date Smoking Tobacco: Never Smokeless Tobacco: Never Tobacco Cessation:Counseling Given: Not Answered Alcohol Use Standard Drinks/Week Comments Never 0 (1 standard drink = 0.6 oz pur e alcohol) Family and Community Support Answer Jimbo e Recorded Help with Day to Day Activities Not on file 09/29/2023 Feeling Lonely or Isolated Not on file 09/29 Educational Attainment Answer Date Alfredo rded Speak language other than Nepali at home Not on file 09/29/2023 Want help with school or training Not on file 09/29/2023 Substance Use Answer Date Recorded Used prescription meds for non-medical reasons N ot on file 09/29/2023 Used illegal drugs past 12 months Not on file 09/29/2023 Comments Unknown Sex and Gender Information Value Date Recorded Sex Assigned at Not on file Legal Sex Female 1:14 PM CDT Gender Identity Not on file Sexual Orientation Not on file Last Filed Vital Signs Vital Sign Reading Time Taken Comments Blood Pressure 126/58 11/28/2024 3:25 PM EDT Pulse 67 11/28/2024 3:25 PM EDT Temperature 36.4 C (97.6 F) 11/28/2024 3:25 PM EDT Respiratory Rate 18 11/28/2024 2:02 PM EDT Oxygen Saturation 98% 11/28/2024 3:25 PM EDT Inhaled Oxygen Concentration - - Weight 86.2 kg (190 lb) 11/28/2024 2:02 PM EDT Height 180.3 cm (5' 11 ) 11/28/2024 2:02 PM EDT Body Mass Index 26.5 11/28/2024 2:02 PM EDT Plan of Treatment Health Maintenance Due Date Last Done Comments CT Colonography 1959 Colonoscopy 1959 Colorectal Cancer Screening 1959 DXA SCAN 1959 FOBT/FIT 1959 Fit-DNA (Cologuard) 1959 Sigmoidoscopy 1959 Depression Screening (12+) 1971 DTAP/TDAP/TD VACCINES (1 - Tdap) 1978 Breast Cancer Screening 1999 Shingles Vaccine (Zoster) (1 of 2) 2009 Falls Risk Screening 09/11/2024 COVID-19 VACCINE (1 - season) 2025 Influenza Vaccine (#1) 2025 Medicare IPPE (Welcome to Medicare) [id number] 09/12/2025 Tobacco Cessation Counseling and Screening (12+) 11/19/2025 11/19/2024 Respiratory Syncytial Virus (RSV) Adult or (1 - 1-dose 75+ series) 2034 Hepatitis C Screening Completed 06/23/2022 Pneumococcal 50+ years Completed 12/29/2022, 2018 Procedures Procedure Name Priority Date/Time Associated Diagnosis Comments ACUTE HEPATITIS ([facility]) Routine 06/23/2022 3:23 PM EDT from Last 3 Months or Most Recently Relevant to Health Maintenance Results * Acute Hepatitis (06/23/2022 3:23 PM EDT) Hep A Ab, IgM Negative Negative [facility] HBsAg Screen Negative Negative [facility] Hep B Core Ab, IgM Negative Negative [facility] HCV Ab <0.1 0.0 - 0.9 s/co ratio [facility] 06/23/2022 3:23 PM EDT 06/23/2022 Narrative [facility] - 07/05/2022 9:07 AM EDT Performed at: [address] [place] [id number] Feed Mixer Helper: Elemr Grimaldo PhD, Phone: [phone] us Claudio Martínez MD LAB BLOOD ORDERABLES Final Res ult [facility] from Last 3 Months or Most Recently Relevant to Health Maintenance Insurance [facility] MEDICARE PPO Care Teams Fuel Cell Builder Relationship Specialty Start Date End Date Jose Miller MD [address] [place] [address] PCP - General Adolescent Medicine 11/14/24
--- OUTSIDE RECORDS SUMMARY | 2025-09-10 12:47 | XMS_ITS | Encounter Summary ---
[facility] Address [address] [place] [phone] Care Team Providers Care Insurance Underwriter Sales Name Role Phone Linda Fraire ISRA Primary Care Provid er Encounter Details Date Type Department Care Team (Late st Contact Info) Description 11/28/2014 External CPT II TRAUMA COORDINATOR - [facility] Social History Tobacco Use [...] Description 10/07/2025 8:00 AM EST Office Visit [facility] [address] [place] [address] Dejah Beltran APRN [address] [place] [phone] 11/19/2025 8:30 AM EDT Office Visit [facility] [address] [place] [address] Jerman Bradford MD [address] [place] [address] documented as of this encounter Visit Diagnoses Not on filedocumented in this encounter Care Teams Insurance Underwriter Sales Relationship Specialty Start Date End Date Linda Fraire APRN [address] [facility] [address] [place] [address] PCP - General Family Medicine 12/27/23 documented as of this encounter
--- OUTSIDE RECORDS SUMMARY | 2025-09-10 12:47 | XMS_ITS | Encounter Summary ---
Author [facility] Address [address] [place] [phone] Care Team Providers Care Seafood Fisherman Name Role Phone Linda Fraire ISRA Primary Care Provid er Encounter Details Date Type Department Care Team (Late st Contact Info) Description 02/12/2014 External CPT II ASSOCIATE PROFESSOR OF MEDICINE - [facility] Social History Tobacco Use [...] Description 10/07/2025 8:00 AM EST Office Visit [facility]ERY [address] [place] [address] Dejah Beltran APRN [address] [place] [id number] 11/19/2025 8:30 AM EDT Office Visit [facility] [address] [place] [address] Jerman Bradford MD [address] [place] [address] documented as of this encounter Visit Diagnoses Not on filedocumented in this encounter Care Teams Seafood Fisherman Relationship Specialty Start Date End Date Linda Fraire APRN [address] [facility] [address] [place] [address] PCP - General Family Medicine 12/27/23 documented as of this encounter
--- OUTSIDE RECORDS SUMMARY | 2025-09-10 12:47 | XMS_ITS | Encounter Summary ---
[facility] Address [address] [place] [address] Care Team Providers Care Pocket Creaser Name Role Phone Linda Fraire ISRA Primary Care Provid er Encounter Details Date Type Department Care Team (Late st Contact Info) Description 09/13/2017 External CPT II ELECTRONIC DEVICE MONITOR - [facility] Social History Tobacco Use Types Packs/Day Years Used Date Smoking Tobacco: Never Alcohol Use Standard Drinks/Week Comments No 0 (1 standard drink = 0.6 oz pur e alcohol) Comments Unknown Sex and Gender Information Value [...] Description 10/07/2025 8:00 AM EST Office Visit [facility] [address] [facility] [address] [place] [address] Dejah Beltran APRN [address] [facility] [address] [place], [place] [id number] 11/19/2025 8:30 AM EDT Office Visit [facility] [address] [facility] [address] [place] [address] Jerman Bradford MD [address] [place] [address] documented as of this encounter Visit Diagnoses Not on filedocumented in this encounter Care Teams Pocket Creaser Relationship Specialty Start Date End Date Linda Fraire APRN [address] [facility] [address] [place] [address] PCP - General Family Medicine 12/27/23 documented as of this encounter
--- OUTSIDE RECORDS SUMMARY | 2025-09-10 12:47 | XMS_ITS | Encounter Summary ---
Author Organization [facility] Address [address] [place] [address] Care Team Providers Care Starch Crab Name Role Phone Neal Polk MD Unavailable [phone] Jose Miller MD Primary Care Provider [phone] Encounter Details Date Type Department Care Team (Latest Contact Info) Description 08/20/2025 Travel Social History Tobacco Use Types Packs/Day Years Used Date Smoking Tobacco: Never Passive Smoke Exposure: Never Smokeless Tobacco: Never Alcohol Use Standard Drinks/Week Comments Not Currently 0 (1 standard drink = 0.6 oz pur e alcohol) Humiliation, Afraid, Rape, and Kick questionnair e Answer Date Recorded Within the last year, have y ou been afraid of your partner or ex-partner? No 09/06/2023 Within the last year, have y ou been humiliated or emotionally abused in other ways by your partner or ex-partner? No Within the last year, have y ou been kicked, hit, slapped, or otherwise physically hurt by your partner or ex-partner? No 09/06/2023 Within the last year, have y ou been raped or forced to have any kind of sexual activity by your partner or ex-partner? No 09/06/2023 PHQ-2 Answer Date Recorded Patient Health Questionnaire-2 Score 0 07/12/2024 Hunger Vital Sign Answer Date Recorded Within the past 12 months, y ou worried that your food would run out before you got the money to buy more. Never true 09/06/20 23 Within the past 12 months, t he food you bought just didn't last and you didn't have money to get more. Never true 09/06/2023 PRAPARE - Transportation Answer Date Re corded In the past 12 months, has l ack of transportation kept you from medical appointments or from getting medications? No 08/12 In the past 12 months, has l ack of transportation kept you from meetings, work, or from getting things needed for daily living? No 09/06/2023 Housing Stability Vital Sign Answer Jimbo e Recorded In the last 12 months, was t here a time when you were not able to pay the mortgage or rent on time? No 09/06/2023 In the last 12 months, how many places have you lived? 1 09/06/2023 In the last 12 months, was t here a time when you did not have a steady place to sleep or slept in a care home (including now)? No 09/06/2023 CAGE ASSESSMENT Answer Date Recorded Cage unable to access Not on file 09/02/2023 Cage max number of drinks Not on file 2022 Cage Beverages a week Not on file 09/02/2023 Have you ever felt you should CUT down on your d rinking? 0 09/02/2023 Have you been ANNOYED by people criticizing your drinking? 0 09/02/2023 Have you felt GUILTY about your drinking? 0 09/02/2023 Have you had a drink first t darshana in the morning (EYE-ASSEMBLER TESTER) to steady your nerves or to get rid of a hangover? 0 09/02/2023 CAGE Questionnaire Score 0 023 Utilities Answer Date Recorded In the past 12 months has th e [employer], gas, oil, or water [employer] threatened to shut off services in your home? No 09/06/2023 PHQ-2A Answer Date Recorded Depression Risk 0 05/16/2024 Comments No Sex and Gender Information Value Date Recorded Sex Assigned at Female 02/18/2023 9:31 AM EDT Legal Sex Female 8:41 PM EDT Gender Identity Female 02/18/2023 9:31 AM EDT Sexual Orientation Straight 02/18/2023 9: 31 AM EDT documented as of this encounter Functional Status * Travel Screening Question Answer Date of Assessment Author Have you traveled internatio zhen or domestically in the last month? No 08/20/2025 12:05 PM EST Mych art, Generic documented as of this encounter Mental Status * Travel Screening Question Answer Entry Date Author Have you traveled internatio zhen or domestically in the last month? No 08/20/2025 12:05 PM EST Mych art, Generic documented in this encounter Plan of Treatment Not on file documented as of this encounter Visit Diagnoses Not on filedocumented in this encounter Additional Health Concerns Assessment Noted Time A fall risk assessment has been complete d for the patient 11/27/2024 7:43 AM EDT A Body Mass Index follow-up plan has been documented for the patient 11/27/2024 8:30 AM EDT documented as of this encounter Care Teams Starch Crab Relationship Specialty Start Date End Date Jose Miller MD [facility] [address] [id number] PCP - General Internal Medicine 01/03/23 Neal Polk MD [address] [facility] [address] [place] [address] Surgeon Neurosurgery 01/03/23 documented as of this encounter
--- OUTSIDE RECORDS SUMMARY | 2025-09-10 12:47 | XMS_ITS | Encounter Summary ---
Author Organization [facility] Address [address] [place] [id number] Care Team Providers Care District Court Judge Name Role Phone Linda Fraire ISRA Primary Care Provid er Encounter Details Date Type Department Care Team (Late st Contact Info) Description 01/21/2015 External CPT II ASSEMBLER CORNCOB PIPES - [facility] Social History Tobacco Use [...] Description 10/07/2025 8:00 AM EST Office Visit [facility] BARIATRIC SURGERY [address] [place] [address] Dejah Beltran APRN [address] [place] [id number] 11/19/2025 8:30 AM EDT Office Visit [facility] NEUR[facility] [address] [place] [address] Jerman Bradford MD [address] [place] [address] documented as of this encounter Visit Diagnoses Not on filedocumented in this encounter Care Teams District Court Judge Relationship Specialty Start Date End Date Linda Fraire APRN [address] [facility] [address] [place] [address] PCP - General Family Medicine 12/27/23 documented as of this encounter
--- OUTSIDE RECORDS SUMMARY | 2025-09-10 12:47 | XMS_ITS | Encounter Summary ---
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 - [facility] Social History Tobacco Use [...] Description 10/07/2025 8:00 AM EST Office Visit [facility] BARIATRIC SURGERY [address] [facility] [address] [place] [address] Dejah Beltran APRN [address] [facility] [address] [place], [place] [phone] 11/19/2025 8:30 AM EDT Office Visit [facility] NEUROLOGY [address] [facility] [address] [place] [address] Jerman Bradford MD [address] [place] [address] documented as of this encounter Visit Diagnoses Not on filedocumented in this encounter Care Teams Multi Craft Maintenance Technician Relationship Specialty Start Date End Date Linda Fraire APRN [address] [facility] [address] [place] [address] PCP - General Family Medicine 12/27/23 documented as of this encounter
--- OUTSIDE RECORDS SUMMARY | 2025-09-10 12:47 | XMS_ITS | Encounter Summary ---
[facility] Address [address] [place] [id number] Care Team Providers Care Coding Coordinator Name Role Phone Linda Fraire ISRA Primary Care Provid er Encounter Details Date Type Department Care Team (Late st Contact Info) Description 02/04/2015 External CPT II ADVANCED PRACTICE NURSE PSYCHOTHERAPIST - [facility] Social History Tobacco Use [...] [facility] BARI[facility]ERY [address] [place] [address] Dejah Beltran APRN [address] [place] [id number] 11/19/2025 8:30 AM EDT Office Visit [facility] NEUROLOG[facility] [address] [place] [address] Jerman Bradford MD [address] [place] [address] documented as of this encounter Visit Diagnoses Not on filedocumented in this encounter Care Teams Coding Coordinator Relationship Specialty Start Date End Date Linda Fraire APRN [address] [facility] [address] [place] [address] PCP - General Family Medicine 12/27/23 documented as of this encounter
--- OUTSIDE RECORDS SUMMARY | 2025-09-10 12:47 | XMS_ITS | Encounter Summary ---
[facility] Organization [facility] Address [address] [place] [address] Care Team Providers Care Waiter/Waitress Formal Name Role Phone Linda Fraire ISRA Primary Care Provid er Encounter Details Date Type Department Care Team (Late st Contact Info) Description 02/07/2019 External CPT II WEASAND TRIMMER - [facility] Social History Tobacco Use [...] Description 10/07/2025 8:00 AM EST Office Visit [facility] BARIATRIC SURGERY [address] [facility] [address] [place] [address] Dejah Beltran APRN [address] [facility] [address] [place], [place] [id number] 11/19/2025 8:30 AM EDT Office Visit [facility] [address] [facility] [address] [place] [address] Jerman Bradford MD [address] [place] [address] documented as of this encounter Visit Diagnoses Not on filedocumented in this encounter Care Teams Waiter/Waitress Formal Relationship Specialty Start Date End Date Linda Fraire APRN [address] [facility] [address] [place] [address] PCP - General Family Medicine 12/27/23 documented as of this encounter
--- OUTSIDE RECORDS SUMMARY | 2025-09-10 12:47 | XMS_ITS | Clinical Summary ---
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 4 Active ferrous sulfate 325 (65 FE) MG EC tablet Take by mouth Daily. 3 Active vitamin C (ASCORBIC ACID) 500 MG tablet Take 2 tablets by mouth Daily. 3 Active Cyanocobalamin ([employer] VITAMIN B-12) [address] under the tongue Daily. 3 Active Multiple Vitamin (MULTI VITAMIN DAILY PO) Take by mouth Daily. 4 Active citalopram (CeleXA) 40 MG tablet Take 1 tablet by mouth Daily. 6 Active metoprolol tartrate (LOPRESSOR) 50 MG tablet Take 1 tablet by mouth 2 (Two) Times a Day. 6 Active Cholecalciferol 25 MCG (1000 UT) tablet Take 2 tablets by mouth. Active famotidine (PEPCID) 40 MG tablet Take 0.5 tablets by mouth every night at bedtime. 4 Active docusate sodium (COLACE) 100 MG capsule Take 1 capsule by mouth 2 (Two) Times a Day. Active simvastatin (ZOCOR) 40 MG tablet Take 1 tablet by mouth Every Night. 4 Active sennosides-docusat e (PERICOLACE) 8.6-50 MG per tablet Take 1 tablet by mouth 3 times a day. Active ondansetron ODT (ZOFRAN-ODT) [address] 1 tablet on the tongue Every 4 (Four) Hours As Needed for Nausea or Vomiting. 10 tablet 10/04/2024 2:55 PM EST 5 Active omeprazole (priLOSEC) 40 MG capsuleIndications :Gastroesophageal reflux disease, unspecified whether esophagitis present Take 1 capsule by mouth 2 (Two) Times a Day. 180 capsule 5 Active baclofen (LIORESAL) 20 MG tablet Take 1 tablet by mouth 3 (Three) Times a Day. 270 tablet 3 5 Active gabapentin (NEURONTIN) 800 MG tabletIndications: Multiple sclerosis,Peripher al sensory neuropathy due to type 2 diabetes mellitus Take 1 tablet by mouth 3 (Three) Times a Day. 270 tablet 1 5 08/13/20 26 Active gabapentin (NEURONTIN) 800 MG tablet Take by mouth 3 (Three) Times a Day. 4 08/13/20 25 Discontin ued(Reord er) baclofen (LIORESAL) 20 MG tablet Take 1 tablet by mouth 3 (Three) Times a Day. 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 03/13/2025 Assessment & Plan (08/13/2025 8:47 AM EST): Sx stable Continue baclofen 20 mg TID GBP 800 mg TID Assessment & Plan (04/09/2025 9:18 AM EDT): Continue gabapentin 800 mg TID Baclofen 20 mg TID Assessment & Plan (03/13/2025 8:56 AM EDT): Continue gabapentin 800 mg TID Baclofen 20 mg TID 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 [address] [place] [id number] Jerman Bradford MD Multiple sclerosis (Primary Dx); Peripheral sensory neuropathy due to type 2 diabetes mellitus 08/13/2025 Travel 07/21/2025 Results Follow-Up [facility] BARI[facility]IC SURGERY [address] [place] [address] Elver Sim APRN 07/07/2025 10:00 AM EDT Office Visit [facility] BARIAT[facility] SURGERY [address] [place] [address] Elver Sim SOAKER SODA WORKER Overweight (BMI 25.0-29.9) (Primary Dx); Gastroesophageal reflux disease, unspecified whether esophagitis present; Intestinal malabsorption, unspecified type; Abnormal blood level of iron; Vitamin D deficiency; Fatigue, unspecified type 07/07/2025 Travel from Last 3 Months Family History Medical History Relation Name Comments Early Father Humberto Vaughn Arthritis Mother Evon COPD Mother Evon Diabetes Mother Evon Hypertension Mother Evon Obesity Mother Evon Sleep apnea Mother Evon Multiple sclerosis Other Relation Name Status Comments Father Humberto Vaughn Alive Mother Evon Other Social History Tobacco Use Types Packs/Day Years Used Date Smoking Tobacco: Never Passive Smoke Exposure: Never Smokeless Tobacco: Never Tobacco Cessation:Counseling Given: No Alcohol Use Standard Drinks/Week Comments No 0 (1 standard drink = 0.6 oz pur e alcohol) [facility] Utilities Answer Date Recorded In the past 12 months has th e electric, gas, oil, or water [employer] threatened to shut off services in your [...] and heating? Not hard at all 10/04/2024 [facility] [place] [employer] - Occupational Stress [...] or equivalent Patient declined 10/04/2024 Preferred Language Dominican 10/04/2024 PHQ-2 Answer Date Recorded Patient Health Questionnaire-2 Score 0 10/04/2024 Comments No Sex and Gender Information Value Date Recorded Sex Assigned at Female 12/27/2023 8:30 AM EDT Legal Sex Female 10:03 AM EDT Gender Identity Female 12/27/2023 8:30 AM EDT Sexual Orientation Straight 12/27/2023 8: 30 AM EDT Last Filed Vital Signs Vital Sign Reading Time Taken Comments Blood Pressure 106/68 08/13/2025 8:16 AM EST Pulse 60 08/13/2025 8:16 AM EST Temperature 36.5 C (97.7 F) 07/07/2025 9:51 AM EDT Respiratory Rate 16 07/07/2025 9:51 AM EDT Oxygen Saturation 96% 08/13/2025 8:16 AM EST Inhaled Oxygen Concentration - - Weight 78.7 kg (173 lb 6.4 oz) 08/13/2025 8:16 A M EST Height 171.5 cm (5' 7.5 ) 08/13/2025 8:16 AM EST Body Mass Index 26.76 08/13/2025 8:16 AM EST Plan of Treatment Upcoming Encounters Date Type Department Care Team (Late st Contact Info) Description 10/07/2025 8:00 AM EST Office Visit [facility] BARI[facility] SURGERY [address] [place] [address] Dejah Beltran APRN [address] [place], [place] [id number] 11/19/2025 8:30 AM EDT Office Visit [facility] [address] [place] [address] Jerman Bradford MD [address] [place] [address] Health Maintenance Due Date Last Done Comments DXA SCAN 1959 COVID-19 Vaccine (#1) 1964 DIABETIC EYE EXAM 1969 DIABETIC FOOT EXAM 1969 URINE MICROALBUMIN-CREATININ E RATIO (uACR) 1969 MAMMOGRAM 1999 COLOGUARD 2004 COLON CANCER SCREENING 5 YEA R SIGMOIDOSCOPY 2004 COLONOSCOPY 2004 [address] CANCER SCREENING 2004 CT COLONOGRAPHY 2004 FECAL OCCULT BLOOD TEST 2004 FIT Testing (1 year) 2004 ANNUAL WELLNESS VISIT 05/01/2018 ZOSTER VACCINE (2 of 2) 03/27/2024 01/31/2024 HEMOGLOBIN A1C 03/10/2025 09/10/2024, 08/12, 09/01/2023, Additional history exists INFLUENZA VACCINE 04/11/2025 TDAP/TD VACCINES (2 - Td or Tdap) 01/30/2034 024 Pneumococcal Vaccine 50+ Completed 12/29/2022, 01/11 HEPATITIS C SCREENING Completed 04/29/2024 Medical Devices Implanted Type Area Drying Oven Tender Device Identifier Shelf Expiration Date Model / Serial / Lot Dev Cls Wnd Vloc/Pbt Daysi Nonabs 1/2cir Sz2/0 26mm 15cm Harpreet - [id number] Implanted:Qty : 1 on 10/03/2024 by Jay Jin MD at [facility] Implant N/A: Abdomen COVIDIEN [id number] 02/08/2027 [id number] / / [id number] Dev Cls Wnd Vloc/Pbt Daysi Nonabs 1/2cir Sz2/0 26mm 15cm Harpreet - [id number] Implanted:Qty : 1 on 10/03/2024 by Jay Jin MD at [facility] Implant N/A: Abdomen COVIDIEN [id number] 02/08/2027 [id number] / / [id number] Dev Contrl Tiss Stratafix Spiral Pds Pls 3/0 0 15cm Shay - [id number] Implanted:Qty : 2 on 10/03/2024 by Jay Jin MD at [facility] Implant N/A: Abdomen ETHICON DIV OF J AND J 01/08/2026 [id number] / / [id number] Kt Seal Hemos Abs Floseal Matrx 1.5/Fast/Prep 5000/Iu 10ml - [id number] Implanted:Qty : 1 on 10/03/2024 by Jay Jin MD at [facility] Implant N/A: Abdomen [employer] [id number] 10/11/2025 [id number] / / [id number] Reload Stplr Sureform 60 Davinci/X/Xi 6row 4.3 Grn 1p/U - [id number] Implanted:Qty : 1 on 10/03/2024 by Jya Jin MD at [facility] Implant N/A: Abdomen INTUITIVE SURGICAL [id number] 11/08/2024 [id number] / / [id number] Reload Stplr Sureform 60 Davinci/X/Xi 6row 3.5 Harpreet 1p/U - [id number] Implanted:Qty : 2 on 10/03/2024 by Jay Jin MD at [facility] Implant N/A: Abdomen INTUITIVE SURGICAL [id number] 05/11/2025 [id number] / / [id number] Reload Stplr Sureform 60 Davinci/X/Xi 6row 2.5 Wht 1p/U - [id number] Implanted:Qty : 3 on 10/03/2024 by Jay Jin MD at [facility] Implant N/A: Abdomen INTUITIVE SURGICAL [id number] 05/11/2027 [id number] / / [id number] Procedures Procedure Name Priority Date/Time Associated Diagnosis Comments CBC AND DIFFERENTIAL Routine 07/07/2025 10:30 AM EDT Overweight (BMI 25.0-29.9) Gastroesophageal reflux disease, unspecified whether esophagitis present Intestinal malabsorption, unspecified type Abnormal blood level of iron Vitamin D deficiency Fatigue, unspecified type ZINC Routine 07/07/2025 10:30 AM EDT Overweight (BMI 25.0-29.9) Gastroesophageal reflux disease, unspecified whether esophagitis present Intestinal malabsorption, unspecified type Abnormal blood level of iron Vitamin D deficiency Fatigue, unspecified type VITAMIN K1 Routine 07/07/2025 10:30 AM EDT Overweight (BMI 25.0-29.9) Gastroesophageal reflux disease, unspecified whether esophagitis present Intestinal malabsorption, unspecified type Abnormal blood level of iron Vitamin D deficiency Fatigue, unspecified type VITAMIN E Routine 07/07/2025 10:30 AM EDT Overweight (BMI 25.0-29.9) Gastroesophageal reflux disease, unspecified whether esophagitis present Intestinal malabsorption, unspecified type Abnormal blood level of iron Vitamin D deficiency Fatigue, unspecified type VITAMIN D,25-HYDROXY Routine 07/07/2025 10:30 AM EDT Overweight (BMI 25.0-29.9) Gastroesophageal reflux disease, unspecified whether esophagitis present Intestinal malabsorption, unspecified type Abnormal blood level of iron Vitamin D deficiency Fatigue, unspecified type VITAMIN B1, WHOLE BLOOD Routine 07/07/2025 10:30 AM EDT Overweight (BMI 25.0-29.9) Gastroesophageal reflux disease, unspecified whether esophagitis present Intestinal malabsorption, unspecified type Abnormal blood level of iron Vitamin D deficiency Fatigue, unspecified type VITAMIN A Routine 07/07/2025 10:30 AM EDT Overweight (BMI 25.0-29.9) Gastroesophageal reflux disease, unspecified whether esophagitis present Intestinal malabsorption, unspecified type Abnormal blood level of iron Vitamin D deficiency Fatigue, unspecified type MAGNESIUM Routine 07/07/2025 10:30 AM EDT Overweight (BMI 25.0-29.9) Gastroesophageal reflux disease, unspecified whether esophagitis present Intestinal malabsorption, unspecified type Abnormal blood level of iron Vitamin D deficiency Fatigue, unspecified type METHYLMALONIC ACID, SERUM Routine 07/07/2025 10:30 AM EDT Overweight (BMI 25.0-29.9) Gastroesophageal reflux disease, unspecified whether esophagitis present Intestinal malabsorption, unspecified type Abnormal blood level of iron Vitamin D deficiency Fatigue, unspecified type PHOSPHORUS Routine 07/07/2025 10:30 AM EDT Overweight (BMI 25.0-29.9) Gastroesophageal reflux disease, unspecified whether esophagitis present Intestinal malabsorption, unspecified type Abnormal blood level of iron Vitamin D deficiency Fatigue, unspecified type PREALBUMIN Routine 07/07/2025 10:30 AM EDT Overweight (BMI 25.0-29.9) Gastroesophageal reflux disease, unspecified whether esophagitis present Intestinal malabsorption, unspecified type Abnormal blood level of iron Vitamin D deficiency Fatigue, unspecified type PROTIME-INR Routine 07/07/2025 10:30 AM EDT Overweight (BMI 25.0-29.9) Gastroesophageal reflux disease, unspecified whether esophagitis present Intestinal malabsorption, unspecified type Abnormal blood level of iron Vitamin D deficiency Fatigue, unspecified type PTH, INTACT Routine 07/07/2025 10:30 AM EDT Overweight (BMI 25.0-29.9) Gastroesophageal reflux disease, unspecified whether esophagitis present Intestinal malabsorption, unspecified type Abnormal blood level of iron Vitamin D deficiency Fatigue, unspecified type IRON Routine 07/07/2025 10:30 AM EDT Overweight (BMI 25.0-29.9) Gastroesophageal reflux disease, unspecified whether esophagitis present Intestinal malabsorption, unspecified type Abnormal blood level of iron Vitamin D deficiency Fatigue, unspecified type FOLATE Routine 07/07/2025 10:30 AM EDT Overweight (BMI 25.0-29.9) Gastroesophageal reflux disease, unspecified whether esophagitis present Intestinal malabsorption, unspecified type Abnormal blood level of iron Vitamin D deficiency Fatigue, unspecified type FERRITIN Routine 07/07/2025 10:30 AM EDT Overweight (BMI 25.0-29.9) Gastroesophageal reflux disease, unspecified whether esophagitis present Intestinal malabsorption, unspecified type Abnormal blood level of iron Vitamin D deficiency Fatigue, unspecified type COPPER, SERUM Routine 07/07/2025 10:30 AM EDT Overweight (BMI 25.0-29.9) Gastroesophageal reflux disease, unspecified whether esophagitis present Intestinal malabsorption, unspecified type Abnormal blood level of iron Vitamin D deficiency Fatigue, unspecified type COMPREHENSIVE METABOLIC PANEL Routine 07/07/2025 10:30 AM EDT Overweight (BMI 25.0-29.9) Gastroesophageal reflux disease, unspecified whether esophagitis present Intestinal malabsorption, unspecified type Abnormal blood level of iron Vitamin D deficiency Fatigue, unspecified type HEMOGLOBIN A1C Routine 09/10/2024 12:04 PM EST from Last 3 Months or Most Recently Relevant to Health Maintenance Results * Methylmalonic Acid, Serum (07/07/2025 10:30 AM EDT) [facility] Methylmalonic Acid 143 0 - 378 nmol/L [facility] Blood 07/07/2025 10:3 0 AM EDT 07/07/2025 [facility] [place] (AMBULATORY) - 07/18/2025 2:11 PM EST Test(s) 355089-Qbvwvpudwhouz Acid, Serum was developed and its performance characteristics determined by [facility]. It has not been cleared or approved by the Food and Drug Administration. Performed at: - [address] [id number] Change Management Consultant: Stewart Gipson MD, Phone: [phone] Patient Fasting: N us Elver Sim SOAKER SODA WORKER LAB BLOOD ORDERABLES Final Res ult Performing Organization Address City/[facility]/ZIP Co de Phone Number [facility]) [address] [place] [address], [place] [phone] [facility] [address] [place] [address], [place] [phone] * Copper, Serum (07/07/2025 10:30 AM EDT) Copper 82 80 - 158 ug/dL [facility] Comment:Detection Limit = 5 Blood 07/07/2025 10:3 0 AM EDT 07/07/2025 [facility] - 07/18/2025 2:11 PM EST Test(s) 417351-Xlsdtq, Serum or Plasma was developed and its performance characteristics determined by [facility]. It has not been cleared or approved by the Food and Drug Administration. Performed at: - [address] [id number] Change Management Consultant: Stewart Gipson MD, Phone: [phone] Patient Fasting: N Elver Mauricio Sim SOAKER SODA WORKER LAB BLOOD ORDERABLES Final Res ult Performing Organization Address [facility] Co de Phone Number [facility] [address] [place] [address], [place] [phone] [facility] [address] [place] [address], * Vitamin B1, Whole Blood (07/07/2025 10:30 AM EDT) Vitamin B1, Whole Blood 169.8 66.5 - 200.0 nmol/L [facility] Blood 07/07/2025 10:3 0 AM EDT 07/07/2025 [facility] - 07/18/2025 2:11 PM EST Test(s) 028902-Mzr. B1, Whole Blood was developed and its performance characteristics determined by [facility]. It has not been cleared or approved by the Food and Drug Administration. Performed at: [address] [id number] Change Management Consultant: Stewart Gipson MD, Phone: [phone] Patient Fasting: N Elver Sim SOAKER SODA WORKER LAB BLOOD ORDERABLES Final Res ult Performing Organization Address [facility] de Phone Number [facility] [place] (AMBULATORY) [address] [place] [address], [place] [phone] [facility] [address] [place] [address], [place] [phone] * Zinc (07/07/2025 10:30 AM EDT) Zinc 61 44 - 115 ug/dL [facility] Comment:Detection Limit = 5 Blood 07/07/2025 10:3 0 AM EDT 07/07/2025 Narrative [facility] - 07/18/2025 2:11 PM EST Test(s) 008623-Wydq, Plasma or Serum was developed and its performance characteristics determined by [facility]. It has not been cleared or approved by the Food and Drug Administration. Performed at: [address] [id number] Change Management Consultant: Stewart Gipson MD, Phone: [phone] Patient Fasting: N Elver Mauricio Sim SOAKER SODA WORKER LAB BLOOD ORDERABLES Final Res ult Performing Organization Address [facility] de Phone Number [facility] (AMBULATORY) [address] [place] [address], [place] [phone] [facility] [address] [place] [address], [place] [phone] * Vitamin A (07/07/2025 10:30 AM EDT) Vitamin A 44.0 22.0 - 69.5 ug/dL [facility] Comment: Reference intervals for vitamin A determined from [facility] internal studies. Individuals with vitamin A less than 20 ug/dL are considered vitamin A deficient and those with serum concentrations less than 10 ug/dL are considered severely deficient. This test was developed and its performance characteristics determined by [facility]. It has not been cleared or approved by the Food and Drug Administration. Blood 07/07/2025 10:3 0 AM EDT 07/07/2025 Narrative [facility] - 07/18/2025 2:11 PM EST Performed at: 02 - [facility] [id number] Change Management Consultant: Stewart Gipson MD, Phone: [phone] Patient Fasting: N Elver Sim SOAKER SODA WORKER LAB BLOOD ORDERABLES Final Res ult Performing Organization Address [facility] de Phone Number [facility] ([facility]) [address] [place] [address], [facility] [address] [place] [address], * Vitamin K1 (07/07/2025 10:30 AM EDT) [facility] Vitamin K 0.33 0.10 - 2.20 ng/mL [facility] Blood 07/07/2025 10:3 0 AM EDT 07/07/2025 [facility] - 07/18/2025 2:11 PM EST Test(s) [id number]-Nsjqwaw K1 was developed and its performance characteristics determined by [facility]. It has not been cleared or approved by the Food and Drug Administration. Performed at: 02 - [address] [id number] Change Management Consultant: Stewart Gipson MD, Phone: [phone] Patient Fasting: N Elver Sim SOAKER SODA WORKER LAB BLOOD ORDERABLES Final Res ult Performing Organization Address [facility] Co de Phone Number [facility] ([facility]) [address] [place] [address], [place] [phone] [facility] [address] [place] [address], [place] [phone] * Vitamin D,25-Hydroxy (07/07/2025 10:30 AM EDT) 25 Hydroxy, Vitamin D 62.1 30.0 - 100.0 ng/mL [facility] Comment: Vitamin D deficiency has been defined by the [place] [employer] and an Endocrine Society practice guideline as a level of serum 25-OH vitamin D less than 20 ng/mL (1,2). The Endocrine Society went on to further define vitamin D insufficiency as a level between 21 and 29 ng/mL (2). 1. IOM ([place] of Medicine). 2010. Dietary reference intakes for calcium and D. [place]: The National Academies Press. 2. Doris MF, Barbara [place], Kodi SIMMONS, et al. Evaluation, treatment, and prevention of vitamin D deficiency: an Endocrine Society clinical practice guideline. JCEM. 2010; 96(7):1911-30. Blood 07/07/2025 10:3 0 AM EDT 07/07/2025 Narrative [facility] (AMBULATORY) - 07/18/2025 2:11 PM EST Performed at: 01 - [address] [id number] Change Management Consultant: Elmer Grimaldo PhD, Phone: [phone] Patient Fasting: N us Elver Sim SOAKER SODA WORKER LAB BLOOD ORDERABLES Final Res ult [facility] (AMBULATORY) [address] [place] [address], [facility] [address] [place] [address], * Protime-INR (07/07/2025 10:30 AM EDT) INR 1.1 0.9 - 1.2 [facility] Comment: Reference interval is for non-anticoagulated patients. Suggested INR therapeutic range for Vitamin K antagonist therapy: Standard Dose (moderate intensity therapeutic range): 2.0 - 3.0 Higher intensity therapeutic range 2.5 - 3.5 Protime 11.4 9.1 - 12.0 sec [facility] Blood 07/07/2025 10:3 0 AM EDT 07/07/2025 Narrative [facility] (AMB[facility]ATORY) - 07/18/2025 2:11 PM EST Performed at: 01 - [facility] [address] [place], [place] [id number] Change Management Consultant: Elmer Grimaldo PhD, Phone: [phone] Patient Fasting: N us Elver Sim SOAKER SODA WORKER LAB BLOOD ORDERABLES Final Res ult [facility] (AMBULATORY) [address] [place] [address], [facility] [address] [place] [address], * (ABNORMAL) CBC & Differential (07/07/2025 10:30 AM EDT) WBC 3.8 3.4 - 10.8 x10E3/uL [facility] RBC 3.42(L) 3.77 - 5.28 x10E6/uL [facility] Hemoglobin 10.9(L) 11.1 - 15.9 g/dL [facility] Hematocrit 33.3(L) 34.0 - 46.6 % [facility] MCV 97 79 - 97 fL [facility] MCH 31.9 26.6 - 33.0 pg [facility] MCHC 32.7 31.5 - 35.7 g/dL [facility] RDW 12.2 11.7 - 15.4 % [facility] Platelets 189 150 - 450 x10E3/uL [facility] Neutrophil Rel % 67 Not Estab. % [facility] Lymphocyte Rel % 22 Not Estab. % [facility] Monocyte Rel % 7 Not Estab. % [facility] Eosinophil Rel % 3 Not Estab. % [facility] Basophil Rel % 1 Not Estab. % [facility] Neutrophils Absolute 2.6 1.4 - 7.0 x10E3/uL [facility] Lymphocytes Absolute 0.9 0.7 - 3.1 x10E3/uL [facility] Monocytes Absolute 0.3 0.1 - 0.9 x10E3/uL [facility] Eosinophils Absolute 0.1 0.0 - 0.4 x10E3/uL [facility] Basophils Absolute 0.0 0.0 - 0.2 x10E3/uL [facility] Immature Granulocyte Rel % 0 Not Estab. % [facility] Immature Grans Absolute 0.0 0.0 - 0.1 x10E3/uL [facility] Blood 07/07/2025 10:3 0 AM EDT 07/07/2025 [facility] - 07/18/2025 2:11 PM EST Performed at: 01 - [address] [id number] Change Management Consultant: Elmer Grimaldo PhD, Phone: [phone] Patient Fasting: N us Elver Sim SOAKER SODA WORKER LAB BLOOD ORDERABLES Final Res ult [facility] (AMBULATORY) [address] [place] [address], [facility] [address] [place] [address], * Vitamin E (07/07/2025 10:30 AM EDT) [facility] Vitamin E (Alpha Tocopherol) 9.5 9.0 - 29.0 mg/L [facility] Vitamin E (Gamma Tocopherol) 1.0 0.5 - 4.9 mg/L [facility] Comment: Reference intervals for alpha and gamma-tocopherol determined from National Health and Nutrition Examination Survey, 7592-4084. Individuals with alpha-tocopherol levels less than 5.0 mg/L are considered vitamin E deficient. Blood 07/07/2025 10:3 0 AM EDT 07/07/2025 [facility] - 07/18/2025 2:11 PM EST Test(s) [id number]-Gkgkbwq E(Alpha Tocopherol); 499890- Vitamin E(Gamma Tocopherol) was developed and its performance characteristics determined by [facility]. It has not been cleared or approved by the Food and Drug Administration. Performed at: 02 - [facility] [id number] [place], [place] [id number] Change Management Consultant: Stewart Gipson MD, Phone: [phone] Patient Fasting: N Elver Sim SOAKER SODA WORKER LAB BLOOD ORDERABLES Final Res ult Performing Organization Address [facility] de Phone Number [facility] [facility] (AMBULATORY) [address] [place] [address], [facility] [address] [place] [address], [place] [phone] * Prealbumin (07/07/2025 10:30 AM EDT) Prealbumin 17 10 - 36 mg/dL [facility] Blood 07/07/2025 10:3 0 AM EDT 07/07/2025 Narrative [facility] (AMBULATORY) - 07/18/2025 2:11 PM EST Performed at: - [address] [id number] Change Management Consultant: Elmer Grimaldo PhD, Phone: [phone] Patient Fasting: N Elver Luly Roney SOAKER SODA WORKER LAB BLOOD ORDERABLES Final Res ult Performing Organization Address [facility] de Phone Number [facility] (AMBULATORY) [address] [place] [address], [place] [phone] [facility] [address] [place] [address], * Phosphorus (07/07/2025 10:30 AM EDT) Phosphorus 4.1 3.0 - 4.3 mg/dL [facility] Blood 07/07/2025 10:3 0 AM EDT 07/07/2025 Narrative [facility] (AMBULATORY) - 07/18/2025 2:11 PM EST Performed at: - [address] [id number] Change Management Consultant: Elmer Grimaldo PhD, Phone: [phone] Patient Fasting: N Elver Sim SOAKER SODA WORKER LAB BLOOD ORDERABLES Final Res ult Performing Organization Address City/[facility]/ZIP Co de Phone Number [facility] (AMBULATORY) [address] [place] [address], [place] [phone] [facility] [address] [place] [address], [place] [phone] * PTH, Intact (07/07/2025 10:30 AM EDT) PTH, Intact 42 15 - 65 pg/mL [facility] Blood 07/07/2025 10:3 0 AM EDT 07/07/2025 Narrative [facility] (AMBULATORY) - 07/18/2025 2:11 PM EST Performed at: - [address] [id number] Change Management Consultant: Elmer Grimaldo PhD, Phone: [phone] Patient Fasting: N Elver Sim SOAKER SODA WORKER LAB BLOOD ORDERABLES Final Res ult Performing Organization Address [facility] Co de Phone Number [facility] [address] [place] [address], [place] [phone] [facility] [address] [place] [address], [place] [phone] * Magnesium (07/07/2025 10:30 AM EDT) Magnesium 2.1 1.6 - 2.3 mg/dL [facility] Blood 07/07/2025 10:3 0 AM EDT 07/07/2025 Narrative [facility] (AMBULATORY) - 07/18/2025 2:11 PM EST Performed at: - [address] [id number] Change Management Consultant: Elmer Grimaldo PhD, Phone: [phone] Patient Fasting: N us Elver A Sim SOAKER SODA WORKER LAB BLOOD ORDERABLES Final Res ult Performing Organization Address City/[facility]/ZIP Co de Phone Number [facility] (AMBULATORY) [address] [place] [address], [facility] [address] [place] [address], * Iron (07/07/2025 10:30 AM EDT) [facility] Iron 99 27 - 139 ug/dL [facility] Blood 07/07/2025 10:3 0 AM EDT 07/07/2025 Narrative [facility] (AMBULATORY) - 07/18/2025 2:11 PM EST Performed at: - [facility] [address] [place], [place] [id number] Change Management Consultant: Elmer Grimaldo PhD, Phone: [phone] Patient Fasting: N Elver A [employer] SOAKER SODA WORKER LAB BLOOD ORDERABLES Final Res ult Performing Organization Address [facility] Co de Phone Number [facility] (AMBULATORY) [address] [place] [address], [facility] [address] [place] [address], [place] [phone] * Folate (07/07/2025 10:30 AM EDT) [facility] Folate >20.0 >3.0 ng/mL [facility] Comment: A serum folate concentration of less than 3.1 ng/mL is considered to represent clinical deficiency. Blood 07/07/2025 10:3 0 AM EDT 07/07/2025 Narrative [facility] (AMBULATORY) - 07/18/2025 2:11 PM EST Performed at: - [facility] [address] [place], [place] [id number] Change Management Consultant: Elmer Grimaldo PhD, Phone: [phone] Patient Fasting: N Elver A Sim SOAKER SODA WORKER LAB BLOOD ORDERABLES Final Res ult Performing Organization Address [facility]/ZIP Co de Phone Number [facility] (AMBULATORY) [address] [place] [address], [facility] [address] [place] [address], [place] [phone] * Ferritin (07/07/2025 10:30 AM EDT) Pathologist [facility] Ferritin 69 15 - 150 ng/mL [facility] Blood 07/07/2025 10:3 0 AM EDT 07/07/2025 Narrative [facility] (AMBULATORY) - 07/18/2025 2:11 PM EST Performed at: 01 - [facility] [address] [place], [place] [id number] Change Management Consultant: Elmer Grimaldo PhD, Phone: [phone] Patient Fasting: N us Elver Sim SOAKER SODA WORKER LAB BLOOD ORDERABLES Final Res ult [facility] [address] [place] [address], [facility] [address] [place] [address], * (ABNORMAL) Comprehensive Metabolic Panel (07/07/2025 10:30 AM EDT) Pathologist [facility] Glucose 86 70 - 99 mg/dL [facility] BUN 10 8 - 27 mg/dL [facility] Creatinine 0.79 0.57 - 1.00 mg/dL [facility] EGFR Result 82 >59 mL/min/1.7 3 [facility] BUN/Creatinine Ratio 13 12 - 28 [facility] Sodium 144 134 - 144 mmol/L [facility] Potassium 4.4 3.5 - 5.2 mmol/L [facility] Chloride 109(H) 96 - 106 mmol/L [facility] Total CO2 23 20 - 29 mmol/L [facility] Calcium 9.2 8.7 - 10.3 mg/dL [facility] Total Protein 5.8(L) 6.0 - 8.5 g/dL [facility] Albumin 3.8(L) 3.9 - 4.9 g/dL [facility] Globulin 2.0 1.5 - 4.5 g/dL [facility] Total Bilirubin 0.3 0.0 - 1.2 mg/dL [facility] Alkaline Phosphatase 84 49 - 135 IU/L [facility] AST (SGOT) 44(H) 0 - 40 IU/L [facility] ALT (SGPT) 49(H) 0 - 32 IU/L [facility] Blood 07/07/2025 10:3 0 AM EDT 07/07/2025 Narrative [facility] (AMBULATORY) - 07/18/2025 2:11 PM EST Performed at: 01 - [facility] [address] [place], [place] [id number] Change Management Consultant: Elmer Grimaldo PhD, Phone: [phone] Patient Fasting: N Elver Sim APRN LAB BLOOD ORDERABLES Final Res ult Performing Organization Address City/[facility]/ZIP Co de Phone Number [facility] [address] [place] [address], [place] [phone] [facility] [address] [place] [address], [place] [phone] * (ABNORMAL) Hemoglobin A1c (09/10/2024 12:04 PM EST) Hemoglobin A1C 8.00(H) 4.80 - 5.60 % 09/10/2024 12:40 PM EST [facility] Blood Venipuncture / Unknown 09/10/2024 12:04 PM EST 09/10/2024 12:22 PM EST Narrative [facility] - 09/10/2024 12:40 PM EST Hemoglobin A1C Ranges: Increased Risk for Diabetes 5.7% to 6.4% Diabetes >= 6.5% Diabetic Goal < 7.0% Jay Jin MD LAB BLOOD ORDERABLES Final Result [facility]
[address] [place] [address], [place] [phone] from Last 3 Months or Most Recently Relevant to Health Maintenance Insurance [employer] MED[employer]ARE ADVANTAGE PPO Advance Directives * CPR (Attempt to Resuscitate) (Latest Code Status on File) Date Activated Date Inactivated Comments 10/03/2024 1:23 PM 10/04/2024 7:07 PM Question Answer Comments Code Status (Patient has no pulse and is not breathing): CPR (Attempt to Resuscitate) Medical Interventions (Patie nt has pulse or is breathing): Full Support Level Of Support Discussed With: Patient Care Teams Fire Loss Prevention Engineer Relationship Specialty Start Date End Date Linda Fraire APRN [address] [place] [facility] [address] [place] [address] PCP - General Family Medicine 12/27/23
--- OUTSIDE RECORDS SUMMARY | 2025-09-10 12:47 | XMS_ITS | Encounter Summary ---
Author Organization Healthcare Address [address] [place] [address] Care Team Providers Care Movement Therapist Name Role Phone Neal Polk MD Unavailable [phone] Jose Miller MD Primary Care Provider [phone] Encounter Details Date Type Department Care Team (Late st Contact Info) Description 08/27/2025 Telephone [place] [facility] [address] [place] [address] David Reveles MD [address] [place] [address] Social History Tobacco Use Types Packs/Day Years [...] money to buy more. Never true 09/06/20 Within the past 12 months, t he [...] place to sleep or slept in a fci (including now)? No 09/06/2023 CAGE ASSESSMENT Answer [...] drink first t darshana in the morning (EYE-SENIOR REPORT DEVELOPER) to steady your nerves or to get rid of a hangover? 0 09/02/2023 CAGE Questionnaire Score 0 023 Utilities Answer Date Recorded In the past 12 months has th e electric, gas, oil, or water company threatened to shut off services in your home? No 09/06/2023 PHQ-2A Answer Date Recorded Depression Risk 0 05/16/2024 Comments No Sex and Gender Information Value Date Recorded Sex Assigned at Female 02/18/2023 9:31 AM EDT Legal Sex Female 8:41 PM EDT Gender Identity Female 02/18/2023 9:31 AM EDT Sexual Orientation Straight 02/18/2023 9: 31 AM EDT documented as of this encounter Miscellaneous Notes * Telephone Encounter - Stephanie Vy Luly - 08/27/2025 8:16 AM EST Patient Phone Message Reason for Call: Patient calling to cx appt today does not wish to r/s Best contact number and optimal time of day to reach caller: [phone] Note: Please do not reply to this message. Follow-up communication and further actions as a result of this message need to be communicated with the patient directly, if the patient is not active onMyChart. If the patient is active on MyChart, they will receive notification of the communication/outcome via MyChart. documented in this encounter Plan of Treatment [...] documented as of this encounter Care Teams Movement Therapist Relationship Specialty Start Date End Date Jose Miller MD [facility] [address] [address] PCP - General Internal Medicine 01/03/23 Neal Polk MD [address] [place] [address] Surgeon Neurosurgery 01/03/23 documented as of this encounter
--- OUTSIDE RECORDS SUMMARY | 2025-09-10 12:47 | XMS_ITS | Encounter Summary ---
Author Organization [facility] Address [address] [place] [address] Care Team Providers Care Adjuster Piano Action Name Role Phone Neal Polk MD Unavailable [phone] Jose Miller MD Primary Care Provider [phone] Reason for Referral * Consultation (Routine) - Closed Specialty Diagnoses / Procedures Referred By Ana Maria valdivia Referred To Contact Neurology Diagnoses Multiple sclerosis Linda Fraire, [place] [address] fax: Referral ID Status Reason Start Date Expiration Date V isits Requested Visits Authorized [id number] Closed Specialty Services Required 12/29/2022 06/29/2024 1 1 Encounter Details Date Type Department Care Team ([facility] st Contact Info) Description 12/29/2022 Community Orders Community Practice [address] [place] [phone] Linda Fraire APRN [id number] Multiple sclerosis (CMS/HCC) (Primary Dx) Social History Tobacco Use Types Packs/Day Years Used Date Smoking Tobacco: Never Assessed Comments Unknown Sex and Gender Information Value Date Recorded Sex Assigned at Female 02/18/2023 9:31 AM EDT Legal Sex Female 8:41 PM EDT Gender Identity Female 02/18/2023 9:31 AM EDT Sexual Orientation Straight 02/18/2023 9: 31 AM EDT documented as of this encounter Plan of Treatment Scheduled Referrals Name Type Priority Associated Diagnoses Order Schedule Ambulatory referral to Neurology Outpatient Referral Routine Multiple sclerosis (CMS/HCC) Expected: 12/29/2022 (Approximate), Expires: 06/30/2024 documented as of this encounter Visit Diagnoses Diagnosis Multiple sclerosis- Primary documented in this encounter Care Teams Adjuster Piano Action Relationship Specialty Start Date End Date Jose Miller MD [facility] [address] [address] PCP - General Internal Medicine 01/03/23 Neal Polk MD [address] [facility] [address] [place] [address] Surgeon Neurosurgery 01/03/23 documented as of this encounter
--- OUTSIDE RECORDS SUMMARY | 2025-09-10 12:47 | XMS_ITS | Encounter Summary ---
[facility] Address [address] [place] [id number] Care Team Providers Care Manager Erp Name Role Phone Linda Fraire ISRA Primary Care Provid er Encounter Details Date Type Department Care Team (Late st Contact Info) Description 08/20/2013 External CPT II IS CONSULTANT - [facility] Social History Tobacco Use [...] Description 10/07/2025 8:00 AM EST Office Visit [facility] [address] [place] [address] Dejah Beltran APRN [address] [place] [id number] 11/19/2025 8:30 AM EDT Office Visit [facility] [address] [place] [address] Jerman Bradford MD [address] [place] [address] documented as of this encounter Visit Diagnoses Not on filedocumented in this encounter Care Teams Manager Erp Relationship Specialty Start Date End Date Linda Fraire APRN [address] [facility] [address] [place] [address] PCP - General Family Medicine 12/27/23 documented as of this encounter
--- OUTSIDE RECORDS SUMMARY | 2025-09-10 12:47 | XMS_ITS | Encounter Summary ---
[facility] Address [address] [place] [id number] Care Team Providers Care Intake Man Name Role Phone Linda Fraire ISRA Primary Care Provid er Encounter Details Date Type Department Care Team (Late st Contact Info) Description 06/11/2015 External CPT II HOUSE WIRER - [facility] Social History Tobacco Use [...] Description 10/07/2025 8:00 AM EST Office Visit [facility] [address] [place] [address] Dejah Beltran APRN [address] [place] [id number] 11/19/2025 8:30 AM EDT Office Visit [facility] [address] [place] [address] Jerman Bradford MD [address] [place] [address] documented as of this encounter Visit Diagnoses Not on filedocumented in this encounter Care Teams Intake Man Relationship Specialty Start Date End Date Linda Fraire APRN [address] [facility] [address] [place] [address] PCP - General Family Medicine 12/27/23 documented as of this encounter
--- OUTSIDE RECORDS SUMMARY | 2025-09-10 12:47 | XMS_ITS | Encounter Summary ---
[facility] Organization [facility] Address [address] [place] [address] Care Team Providers Care Electric Lift Truck Driver Name Role Phone Linda Fraire ISRA Primary Care Provid er Encounter Details Date Type Department Care Team (Late st Contact Info) Description 03/23/2017 External CPT II LABORER SHIPYARD - [facility] Social History Tobacco Use [...] Description 10/07/2025 8:00 AM EST Office Visit [facility] [address] [facility] [address] [place] [address] Dejah Beltran APRN [address] [facility] [address] [place], [place] [id number] 11/19/2025 8:30 AM EDT Office Visit [facility] [address] [place] [address] Jerman Bradford MD [address] [place] [address] documented as of this encounter Visit Diagnoses Not on filedocumented in this encounter Care Teams Electric Lift Truck Driver Relationship Specialty Start Date End Date Linda Fraire APRN [address] [facility] [address] [place] [address] PCP - General Family Medicine 12/27/23 documented as of this encounter
--- OUTSIDE RECORDS SUMMARY | 2025-09-10 12:47 | XMS_ITS | Encounter Summary ---
Author Organization Healthcare Address [address] [place] [address] Care Team Providers Care Sap Hana Developer Name Role Phone Neal Polk MD Unavailable Jose Miller MD Primary Care Provider [phone] Encounter Details Date Type Department Care Team (Late st Contact Info) Description 08/26/2025 Orders Only [place] [facility] [address] [place] [address] David Reveles MD [address] [place] [address] S/P lumbar spinal fusion (Primary Dx) Social History Tobacco Use Types [...] place to sleep or slept in a half-way (including now)? No 09/06/2023 CAGE ASSESSMENT Answer [...] drink first t darshana in the morning (EYE-PHYSIOTHERAPY AIDE) to steady your nerves or to get rid of a hangover? 0 09/02/2023 CAGE Questionnaire Score 0 023 Utilities Answer Date Recorded In the past 12 months has th e [employer], gas, oil, or water company threatened to [...] of this encounter Plan of Treatment Scheduled Orders Name Type Priority Associated Diagnoses Orde r Schedule XR Lumbar Spine 2 or 3 Views Imaging Routine S/P lumbar spinal fusion Expected: 08/27/2025 (Approximate), Expires: 02/27/2027 documented as of this encounter Visit Diagnoses Diagnosis S/P lumbar spinal fusion- Primary Arthrodesis status documented in this encounter Additional Health Concerns Assessment Noted Time A fall risk assessment has been complete d for the patient 11/27/2024 7:43 AM EDT A Body Mass Index follow-up plan has been documented for the patient 11/27/2024 8:30 AM EDT documented as of this encounter Care Teams Sap Hana Developer Relationship Specialty Start Date End Date Jose Miller MD [facility] [address] [address] PCP - General Internal Medicine 01/03/23 Neal Polk MD [address] [facility] [address] [place] [address] Surgeon Neurosurgery 01/03/23 documented as of this encounter
--- OUTSIDE RECORDS SUMMARY | 2025-09-10 12:48 | XMS_ITS | Patient Health Record ---
Author Organization [facility] Address [address] [facility] [address] [facility] [address] [place] [address] Care Team Providers Care Technical Writer Name Role Phone oJse Miller Primary Care Provider Linda Fraire Unavailable [phone] Migration, Provider Unavailable Unavailable Allergies No Known Allergies Results Component Value Reference Range Flag Notes HEMOGLOBIN A1c (496) Reviewed date:11/30/2024 08:49:15 AM Interpretation: Performing Lab:TAI Jade [employer] [id number] Ulisses DohertyeIL[address] Sinan Roldan Notes/Report: NON-FASTING; NON-FASTING HEMOGLOBIN A1c 5.5 <5.7 % of total Hgb N For the purpose of screening for the presence of diabetes: <5.7% Consistent with the absence of diabetes 5.7-6.4% Consistent with increased risk for diabetes (prediabetes) > or =6.5% Consistent with diabetes This assay result is consistent with a decreased risk of diabetes. Currently, no consensus exists regarding use of hemoglobin A1c for diagnosis of diabetes in children. According to [place] Diabetes Association (ADA) guidelines, hemoglobin A1c <7.0% represents optimal control in non- diabetic patients. Different metrics may apply to specific patient populations. Standards of Medical Care in Diabetes(ADA). COMPREHENSIVE METABOLIC PANE L (33639) Reviewed date:11/30/2024 08:49:14 AM Interpretation: Performing Lab:TAI Jade [employer] [id number] [employer] [facility] Sinan Roldan Notes/Report: NON-FASTING; NON-FASTING GLUCOSE 81 65-99 mg/dL N Fasting reference interval UREA NITROGEN (BUN) 12 7-25 mg/dL N CREATININE 0.81 0.50-1.05 mg/dL N EGFR 81 > OR = 60 mL/min/1.73m2 N BUN/CREATININE RATIO SEE NOTE: 6-22 (calc) Not Reported: BUN and Creatinine are within reference range. SODIUM 139 135-146 mmol/L N POTASSIUM 4.8 3.5-5.3 mmol/L N CHLORIDE 104 98-110 mmol/L N CARBON DIOXIDE 25 20-32 mmol/L N CALCIUM 9.8 8.6-10.4 mg/dL N PROTEIN, TOTAL 6.6 6.1-8.1 g/dL N ALBUMIN 4.4 3.6-5.1 g/dL N GLOBULIN 2.2 1.9-3.7 g/dL (calc) N ALBUMIN/GLOBULIN RATIO 2.0 1.0-2.5 (calc) N BILIRUBIN, TOTAL 0.4 0.2-1.2 mg/dL N ALKALINE PHOSPHATASE 75 37-153 U/L N AST 30 10-35 U/L N ALT 25 6-29 U/L N HEMOGLOBIN A1c (496) Reviewed date:03/06/2025 03:00:56 PM Interpretation: Performing Lab:TAI, Droidhen Onoe5152 [employer] [facility], [facility] HospitalJdkhKU[address] Sinan Roldan Notes/Report: NON-FASTING; NON-FASTING; NON-FASTING; NON-FASTING FASTING:YES FASTING: YES HEMOGLOBIN A1c 5.7 <5.7 % H For someone without known diabetes, a hemoglobin A1c value between 5.7% and 6.4% is consistent with prediabetes and should be confirmed with a follow-up test. For someone with known diabetes, a value <7% indicates that their diabetes is well controlled. A1c targets should be individualized based on duration of diabetes, age, comorbid conditions, and other considerations. This assay result is consistent with an increased risk of diabetes. Currently, no consensus exists regarding use of hemoglobin A1c for diagnosis of diabetes for children. CBC (INCLUDES DIFF/PLT) (589 9) Reviewed date:03/06/2025 03:00:56 PM Interpretation: Performing Lab:TAI, Droidhen Caly3738 [employer], [facility] HospitalPkonAF[address] Sinan Roldan Notes/Report: NON-FASTING; NON-FASTING; NON-FASTING; NON-FASTING FASTING:YES FASTING: YES WHITE BLOOD CELL COUNT 4.1 3.8-10.8 Thousand/uL N RED BLOOD CELL COUNT 3.65 3.80-5.10 Million/uL L HEMOGLOBIN 11.7 11.7-15.5 g/dL N HEMATOCRIT 37.2 35.0-45.0 % N MCV 101.9 80.0-100.0 fL H MCH 32.1 27.0-33.0 pg N MCHC 31.5 32.0-36.0 g/dL L For adults, a slight decrease in the calculated MCHC value (in the range of 30 to 32 g/dL) is most likely not clinically significant; however, it should be interpreted with caution in correlation with other red cell parameters and the patient's clinical condition. RDW 12.7 11.0-15.0 % N PLATELET COUNT 212 140-400 Thousand/uL N MPV 11.0 7.5-12.5 fL N ABSOLUTE NEUTROPHILS 3067 8439-3464 cells/uL N ABSOLUTE LYMPHOCYTES 589 589-6216 cells/uL L ABSOLUTE MONOCYTES 230 200-950 cells/uL N ABSOLUTE EOSINOPHILS 111 15-500 cells/uL N ABSOLUTE BASOPHILS 29 0-200 cells/uL N NEUTROPHILS 74.8 N LYMPHOCYTES 16.2 N MONOCYTES 5.6 N EOSINOPHILS 2.7 N BASOPHILS 0.7 N [facility] ([id number]) Reviewed date:03/06/2025 03:00:56 PM Interpretation: Performing Lab:TAI Droidhen [id number] [employer] [facility], [facility] HospitalHehnCR[address] Sinan Roldan Notes/Report: NON-FASTING; NON-FASTING; NON-FASTING; NON-FASTING FASTING:YES FASTING: YES GLUCOSE 94 65-99 mg/dL N Fasting reference interval UREA NITROGEN (BUN) 13 7-25 mg/dL N CREATININE 0.87 0.50-1.05 mg/dL N EGFR 74 > OR = 60 mL/min/1.73m2 N BUN/CREATININE RATIO SEE NOTE: 6-22 (calc) Not Reported: BUN and Creatinine are within reference range. SODIUM 141 135-146 mmol/L N POTASSIUM 4.6 3.5-5.3 mmol/L N CHLORIDE 106 98-110 mmol/L N CARBON DIOXIDE 26 20-32 mmol/L N CALCIUM 9.6 8.6-10.4 mg/dL N PROTEIN, TOTAL 6.2 6.1-8.1 g/dL N ALBUMIN 4.2 3.6-5.1 g/dL N GLOBULIN 2.0 1.9-3.7 g/dL (calc) N ALBUMIN/GLOBULIN RATIO 2.1 1.0-2.5 (calc) N BILIRUBIN, TOTAL 0.5 0.2-1.2 mg/dL N ALKALINE PHOSPHATASE 69 37-153 U/L N AST 28 10-35 U/L N ALT 27 6-29 U/L N LIPID PANEL, STANDARD (7600) Reviewed date:03/06/2025 03:00:56 PM Interpretation: Performing Lab:TAI, Jade [facility] [facility]te[facility], [facility] HospitalMkwwMN[address] Sinan Roldan Notes/Report: NON-FASTING; NON-FASTING; NON-FASTING; NON-FASTING FASTING:YES FASTING: YES CHOLESTEROL, TOTAL 144 <200 mg/dL N HDL CHOLESTEROL 59 > OR = 50 mg/dL N TRIGLYCERIDES 139 <150 mg/dL N LDL-CHOLESTEROL 63 N Reference range: <100 Desirable range <100 mg/dL for primary prevention; <70 mg/dL for patients with CHD or diabetic patients with > or = 2 CHD risk factors. LDL-C is now calculated using the Gucci-Jeffrey calculation, which is a validated novel method providing better accuracy than the Friedewald equation in the estimation of LDL-C. Gucci ONOFRE et al. TALIA. 2013;310(19): 4745-8390 (http://education.ProPerforma.Genomatica/faq/WIS373) CHOL/HDLC RATIO 2.4 <5.0 (calc) N NON HDL CHOLESTEROL 85 <130 mg/dL (calc) N For patients with diabetes plus 1 major ASCVD risk factor, treating to a non-HDL-C goal of <100 mg/dL (LDL-C of <70 mg/dL) is considered a therapeutic option. Microalbumin (In-House) Reviewed date:03/04/2025 12:33:13 PM Interpretation: Performing Lab: Notes/Report: ALB 10mg CRE 50mg A:C <30mg Medications Medication SIG (Take, Route, Frequency, Duration) Notes Start Date End Date Status Vitamin C 1000 MG Tablet 1 tab(s) orally once a day Active Vitamin B 12 500 MCG Tablet 1 tab(s) orally four times weekly 03/11/2016 Active Citalopram Hydrobromide 40 MG Tablet 1 tablet by mouth once a day; Duration: 90 days Active Ferrous Sulfate 325 (65 Fe) MG Tablet 1 tab(s) orally Mon, Wed and Fri; Duration: 30 days 06/12/2023 Active Omeprazole 40 MG Capsule Delayed Release 1 cap(s) orally once a day; Duration: 90 days Active Famotidine 40 MG Tablet TAKE 1 TABLET AT BEDTIME; Duration: 90 Active TEST STRIPS AND LANCETS NA PER INSURANCE COVERAGE WITH GLUCOMETER ONCE A DAY TESTING NA; Duration: 30 DAYS *Please review for potential replacement for e-prescription and drug interaction check* 02/01/2024 Active Vitamin B1 250 MG TABLET 1 TAB(S) ORALLY ONCE A DAY *Please review and pick correct strength-formulatio n from [employer] options. If intended option is not shown, discontinue and re-order from Quick Search* Active Gabapentin 800 MG Tablet 1 tablet orally 3 times a day; Duration: 90 days 11/01/2024 Active Senexon-S 8.6-50 MG Tablet 2 tab(s) orally once a day (at bedtime); Duration: 90 days Active GLUCOMETER NA PER INSURANCE COVERAGE USE FOR ONCE A DAY TESTING; Duration: 30 DAYS *Please review for potential replacement for e-prescription and drug interaction check* 02/01/2024 Active Centrum THERAPEUTIC MULTIPLE VITAMINS WITH MINERALS TABLET, CHEWABLE 1 TAB(S) CHEWED ONCE A DAY *Please review and pick correct strength-formulatio n from [employer] options. If intended option is not shown, discontinue and re-order from Quick Search* Active Metoprolol Tartrate 50 MG Tablet TAKE 1 TABLET TWICE DAILY; Duration: 90 Active D-3 VITAMIN 1000IU 99684 UNITS- 1 TAB PO QD *Please review for potential replacement for e-prescription and drug interaction check* Active buPROPion HCl ER (XL) 300 MG Tablet Extended Release 24 Hour 1 tab(s) orally once a day; Duration: 90 days Active Calcium 500 MG 1,000MG TWICE DAILY *Please review and pick correct strength-formulatio n from [employer] options. If intended option is not shown, discontinue and re-order from Quick Search* Active Baclofen 20 MG Tablet 1 tab(s) orally 4 times daily; Duration: 90 days 03/04/2016 Active STOOL SOFTENER WITH LAXATIVE *Please review for potential replacement for e-prescription and drug interaction check* Active Simvastatin 40 MG Tablet 1 tab(s) orally once a day (at bedtime); Duration: 90 days Active Immunizations Vaccine Route Administration Date Status Comme nts Boostrix IM Intramuscular 01/31/2024 Administered Pneumovax 23 IM Intramuscular 02/07/2019 Administered Prevnar PCV-20 (Pneumococcal conjugate 20) IM Intramuscular 12/29/2022 Administered SHINGRIX IM Intramuscular 01/31/2024 Administered Social History Tobacco Use: Social History Observation Description Date Details (start date - stop date) Never Smoker NA - NA Social History Social History Social Info Question Answer Notes Smoking: Are you a: nonsmoker Additional Findings: Tobacco Non-User Current no n-smoker Additional Details Category Social Info Options Details Social History Occupation: disability Travel outside [place]: no Alcohol: no Sexually active: no Recreational drug use: no Exercise: no Home smoke detector use: yes Caffeine: yes 2 cups coffee da joe Living Will No Problems Problem Type SNOMED Code ICD Code Onset Dates Problem Status W/U Status Risk Notes Problem Lymphocytopenia (34082242) Lymphocytopenia (D72.810) Active confirmed Problem Type 2 diabetes mellitus with other specified complication (E11.69) Active confirmed Problem Multiple sclerosis (97766276) Multiple sclerosis (G35) Active confirmed Problem Essential hypertension (56781007) Essential (primary) hypertension (I10) Active confirmed Problem Vitamin B12 deficiency (029154836) Vitamin B12 deficiency (E53.8) Active confirmed Problem Mixed anxiety and depressive disorder (258471521) Depression with anxiety (F41.8) Active confirmed Problem Vitamin D deficiency (15297609) Vitamin D deficiency (E55.9) Active confirmed Problem Hyperlipidaemia (89237163) Hyperlipidemia LDL goal <100 (E78.5) Active confirmed Problem Sore throat (011390542) Sore throat (J02.9) Active confirmed Problem Body mass index 30.00 to 34.99 (682938771625760) BMI 34.0-34.9,adult (Z68.34) Active confirmed Problem Body mass index 30.00 to 34.99 (731538022237889) BMI 31.0-31.9,adult (Z68.31) Active confirmed Problem DM - Diabetes mellitus (64537690) DM (diabetes mellitus) (E11.9) Active confirmed Problem Obesity (790783058) Obesity (BMI 30-39.9) (E66.9) Active confirmed Problem Mononeuropathy associated with type II diabetes mellitus (770551864) Diabetic mononeuropathy associated with type 2 diabetes mellitus (E11.41) Active confirmed Problem Body mass index 25-29 - overweight (718858566) BMI 28.0-28.9,adult (Z68.28) Active confirmed Problem Recurrent falls (116653068) Recurrent falls (R29.6) Active confirmed Problem Anemia (858011185) Anemia, unspe cified type (D64.9) Active confirmed Problem Iron deficiency anemia (79998649) Iron deficiency anemia, unspecified iron deficiency anemia type (D50.9) Active confirmed Problem Preinfarction syndrome (3030105) Accelerating angina (I20.0) Active confirmed Problem BMI 25-29 - overweight (460083894) BMI 29.0-29.9,adult (Z68.29) Active confirmed Problem Sciatica (72779863) Acute right- sided low back pain with right-sided sciatica (M54.41) Active confirmed Problem Gastroesophageal reflux disease (disorder) (845073351) Chronic GERD (K21.9) Active confirmed Problem Diarrhea (39508697) Diarrhea, un specified type (R19.7) Active confirmed Problem Solitary sacroiliitis (934974556) SI (sacroiliac) joint inflammation (M46.1) Active confirmed Problem Tension-type headache (disorder) (666263530) Tension type headache, unspecified (G44.209) Active confirmed Problem Leukopenia (39097665) Leukopenia, unspecified type (D72.819) Active confirmed Problem Peripheral neuropathic pain (041858988) Peripheral neuropathic pain (M79.2) Active confirmed Problem Leukopenia (47248931) Chronic leukopenia (D72.819) Active confirmed Problem Type II diabetes mellitus without complication (985181967) Absence of lower extremity due to complication of diabetes mellitus (E11.9) Active confirmed Problem Gastroesophageal reflux disease with esophagitis (disorder) (724717516) Gastroesophageal reflux disease with esophagitis without hemorrhage (K21.00) Active confirmed Problem Gastroesophageal reflux disease (360377266) Gastroesophageal reflux disease, unspecified whether esophagitis present (K21.9) Active confirmed Problem History of sleeve gastrectomy (441893229096670) History of sleeve gastrectomy (Z90.3) Active confirmed Problem Abnormal finding s on imaging test (R93.89) Active confirmed Problem Localized, primary osteoarthritis of the hand (454286217) 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) Active confirmed Problem Acquired spondylolisthesis (168435471) Anterolisthesis of lumbar spine (M43.16) Active confirmed Vital Signs Heart Rate 68 /min 09/10/2025 Temperature 98 degrees Fahrenheit 09/10/2025 Blood pressure diastolic 72 mm Hg 09/10/2025 Height 5 ft 11 in in 09/10/2025 Blood pressure systolic 118 mm Hg 09/10/2025 Weight 172 lbs 09/10/2025 BMI 23.99 kg/m2 09/10/2025 Encounters Encounter Location Date Provider Diagnosis [facility] [address] [place] [address] [place] [id number] 12/14/2024 Provider Migration Type 2 diabetes mellitus with other specified complication E11.69 [facility] [address] [address] 09/10/2025 Linda Fraier RLQ abdominal pain R10.31 [facility] [address] [facility] [address] [place] [address] 10/17/2024 Linda Yee S/P gastric bypass Z98.84 ; Type 2 diabetes mellitus with other specified complication E11.69 ; Hospital discharge follow-up Z09 and Chronic GERD K21.9 [facility] [address] [facility] [address] [place] [address] 11/28/2024 Linda Yee S/P gastric bypass Z98.84 ; Type 2 diabetes mellitus with other specified complication E11.69 ; Chronic GERD K21.9 ; Hyperkalemia E87.5 ; Elevated liver enzymes R74.8 and Multiple sclerosis G35 [facility] [address] [facility] [address] [place] [address] 03/04/2025 Linda Fraire Type 2 diabetes kathy itus with other specified complication E11.69 ; S/P gastric bypass Z98.84 ; Hyperkalemia E87.5 ; Elevated liver enzymes R74.8 and Multiple sclerosis G35 [facility] [address] [facility] [address] [place] [address] 07/08/2025 Linda Fraire Type 2 diabetes kathy itus with other specified complication E11.69 ; Vitamin B12 deficiency E53.8 ; Medicare annual wellness visit, subsequent Z00.00 ; Hyperlipidemia LDL goal <100 E78.5 ; Essential (primary) hypertension I10 ; Vitamin D deficiency E55.9 ; Gastroesophageal reflux disease with esophagitis without hemorrhage K21.00 ; Lumbar back pain M54.50 ; MS (multiple sclerosis) G35.D ; BMI 24.0-24.9, adult Z68.24 ; Visit for screening mammogram Z12.31 ; Asymptomatic postmenopausal state Z78.0 and Depression with anxiety F41.8 [facility] [place] [address] [address] 11/08/2024 Linda Fraire Multiple sclerosis G 35 Assessments Encounter Date Diagnosis (ICD Code) Assessment Notes Treatment Notes Treatment Clinical Notes Section Notes 10/17/2024 Type 2 diabetes mellitus with other specified complication (ICD-10 - E11.69) A1C above goal but I'm hesitant to change medications at this time since she has limited PO intake and her weight is down 10+ pounds from our last visit. Encouraged to monitor FSBS at least 2-3 times per week and RTO with log in about 6 weeks, sooner with any concerns. 10/17/2024 S/P gastric bypass (ICD-10 - Z98.84) hospital notes reviewed, exam today is stable and she has ongoing FU with her surgical team. reviewed importance of hydration and protein intake. 11/08/2024 Multiple sclerosis (ICD-10 - G35) 11/28/2024 Type 2 diabetes mellitus with other specified complication (ICD-10 - E11.69) Recommend continue to monitor glucose levels at home, repeat labs today. She did not refill Tradjenta most recently because of cost. Reports normal fingerstick readings at home. Hopefully metformin will be sufficient at this point. She has been drinking V8 juice every day, encouraged her to decrease this to only 2 or 3 times per week, contributing some to her hyperkalemia as well. 11/28/2024 S/P gastric bypass (ICD-10 - Z98.84) has ongoing FU with her surgical team. reviewed importance of hydration and protein intake. 12/14/2024 Type 2 diabetes mellitus with other specified complication (ICD-10 - E11.69) 03/04/2025 Type 2 diabetes mellitus with other specified complication (ICD-10 - E11.69) Consider stopping metformin 03/04/2025 S/P gastric bypass (ICD-10 - Z98.84) has ongoing FU with her surgical team. reviewed importance of hydration and protein intake. 07/08/2025 Type 2 diabetes mellitus with other specified complication (ICD-10 - E11.69) not currently requiring pharmacotherapy. monitor glucose periodically, repeat A1C in 6 months. Most recent was < 6. Encouraged annual eye exam and routine foot care 09/10/2025 RLQ abdominal pain (ICD-10 - R10.31) 07/08/2025 Vitamin B12 deficiency (ICD-10 - E53.8) encouraged to continue replacement, bariatric surgery center is monitoring 11/28/2024 Chronic GERD (ICD-10 - K21.9) Continue PPI 10/17/2024 Hospital discharge follow-up (ICD-10 - Z09) 10/17/2024 Chronic GERD (ICD-10 - K21.9) Continue PPI, hopefully this will improve postoperatively 11/28/2024 Hyperkalemia (ICD-10 - E87.5) 03/04/2025 Hyperkalemia (ICD-10 - E87.5) 07/08/2025 Hyperlipidemia LDL goal <100 (ICD-10 - E78.5) tolerating statin therapy, goal LDL < 70 07/08/2025 Medicare annual wellness visit, subsequent (ICD-10 - Z00.00) update screenings and vaccinations as noted 07/08/2025 Essential (primary) hypertension (ICD-10 - I10) well controlled with metoprolol 11/28/2024 Elevated liver enzymes (ICD-10 - R74.8) 03/04/2025 Elevated liver enzymes (ICD-10 - R74.8) 11/28/2024 Multiple sclerosis (ICD-10 - G35) 07/08/2025 Vitamin D deficiency (ICD-10 - E55.9) encouraged to continue supplement, level monitored by bariatric surgery clinic 03/04/2025 Multiple sclerosis (ICD-10 - G35) has neurology consult arranged 07/08/2025 Gastroesophageal reflux disease with esophagitis without hemorrhage (ICD-10 - K21.00) Resolved with most recent surgery, continue FU with bariatric surgery clinic recommended 07/08/2025 Lumbar back pain (ICD-10 - M54.50) improved overall, continue tylenol as needed 07/08/2025 MS (multiple sclerosis) (ICD-10 - G35.D) following with [facility] 07/08/2025 BMI 24.0-24.9, adult (ICD-10 - Z68.24) Normal 07/08/2025 Visit for screening mammogram (ICD-10 - Z12.31) 07/08/2025 Asymptomatic postmenopausal state (ICD-10 - Z78.0) 07/08/2025 Depression with anxiety (ICD-10 - F41.8) mild, well controlled on wellbutrin and citalopram, no changes recommended 03/04/2025 Other BP today is marginal. Dizziness is without regard to position and not likely secondary to antihypertensive therapy but did discuss that she could try 1/2 metoprolol BID if neurology doesn't feel that these symptoms are related to MS Plan Of Treatment Pending Test Test Name Order Date DEXA Hip and Spine - Screening 5 DEXA Hip and Spine - Screening 3 EKG : In House 07/13/2011 EKG : In House 04/21/2014 Echocardiogram 04/24/2014 Holter Monitor, 24 Hour 04/22/2014 Physical Therapy 09/07/2012 Physical Therapy 05/22/2008 Physical Therapy 06/22/2015 Physical Therapy 12/27/2016 Physical Therapy 11/18/2020 Doppler: Venous, L Lower Extremity 02/17 Mammogram : Bilateral 12/04/2014 Mammogram : Bilateral 04/26/2018 CT Scan : Abdomen and Pelvis with contra st 09/10/2025 Dietary Consult 05/24/2017 H-CBC with AUTO DIFF 03/04/2016 H-CBC with AUTO DIFF 05/13/2010 H-CBC with AUTO DIFF 09/27/2012 H-CBC with AUTO DIFF 06/11/2015 H-VITAMIN B12 03/04/2016 H-VITAMIN B12 06/11/2015 H-VITAMIN B12 09/27/2012 H-CMP 05/13/2010 H-CMP 09/27/2012 H-CMP 03/04/2016 H-CMP 06/11/2015 H-LIPID PANEL 03/04/2016 H-LIPID PANEL 06/11/2015 H-LIPID PANEL 09/27/2012 H-LIPID PANEL 05/13/2010 H-HGBA1C 05/13/2010 H-HGBA1C 09/27/2012 H-HGBA1C 06/11/2015 H-HGBA1C 03/04/2016 H-TSH 03/04/2016 H-TSH 05/13/2010 H-VIT D, 25-HYDROXY 03/04/2016 H-VIT D, 25-HYDROXY 09/27/2012 H-MICROALBUMIN URINE 09/27/2012 H-MICROALBUMIN URINE 06/11/2015 C-VITAMIN D, 1,25-DIHYDROXY 03/23/2017 C-URINE CULTURE 07/10/2012 Billing Information Required 11/12/2009 TSH 07/09/2012 Rapid Flu, B 06/10/2013 Lexiscan Stress Test 04/24/2014 H-DIARRHEA PANEL PCR 03/04/2016 H-DIARRHEA PANEL PCR 10/12/2015 M-Complete Blood Count Auto Diff 025 M-Complete Blood Count Auto Diff 020 M-Comprehensive Metabolic Panel 08/19/20 20 M-Comprehensive Metabolic Panel 09/10/20 25 M-Hemoglobin A1C 08/19/2020 M-Hemoglobin A1C 04/26/2018 M-Magnesium 08/19/2020 M-Lipid Panel 04/26/2018 M-Lipid Panel 08/19/2020 M-Thyroid Stimulating Hormone 08/19/2020 M-Vitamin B12 03/24/2021 M-Vitamin B12 08/19/2020 M-Vitamin B12 04/26/2018 M-Vitamin D 25 Hydroxy 04/26/2018 M-Vitamin D 25 Hydroxy 08/19/2020 M-Vitamin D 25 Hydroxy 03/24/2021 M-Occult Blood,Stool 06/16/2023 M-Microalb/Creat Ratio, Randm Ur 12/09/2 020 M-H. pylori Breath Test 02/14/2020 Mammogram: Screening 07/08/2025 Future Test Test Name Order Date MRI : Head, With and Without Contrast Next Appt Details Provider Name:Linda Vanegas ce, 01/06/2026 08:00:00 AM, [address], [place], [address], Insurance Providers Payer Name Payer Address Payer Phone Subscriber Number Group Number Insured Name Patient Relationship to Insured Coverage Start Date Coverage End Date [employer] [address] [address] [place] [address] [phone] [id number] Mary Carmen Heller Self - patient is the insured Medications Administered Medication Instructions Date of Administration Dosage Notes Dexamethasone 4mg Injection 04/24/2024 4 mg Medical (General) History Medical History History ICD Code NIDDM multiple sclerosis - diagnosed 2004 and now followed by [facility] hypercholestrolemia lap band-2008 gastric sleeve HTN Peripheral neuropathy Vitamin B 12 def Vitamin D def Colonoscopy 2014, repeat 5 years normal bone density scan March 2019 Optic Neuritis Ovarian Cysts - followed by Dr Manrique cataracts Surgical History Surgery Date(Month/Year) cholecystectomy 1990 lap band 2004 gastric sleeve 2007 wrist x3 1998 2002 Colonoscopy 05/2015 Heart Cath 04/2018 Back Surgery 03/29/2023 Bilateral Cataract surgery 2022 Gastric Bypass 10/03/24 Hospitalization History Reason Date(Month/Year) [facility] 10/03/24-10/04/24 [facility] for 3 days following back surgery Chest pain 04/2018 surgeries
--- OUTSIDE RECORDS SUMMARY | 2025-09-10 12:48 | XMS_ITS | Encounter Summary ---
Author Organization [facility] Address [address] [place] [address] Care Team Providers Care Lotteries Agent Name Role Phone YeeJaydenah Alba DHALIWAL Primary Care Provid er Encounter Details Date Type Department Care Team (Late st Contact Info) Description 07/21/2025 Results Follow-Up [facility] BARIATRIC SURGERY [address] [place] [address] Elver Sim APRN [address] [place] [address] Social History Tobacco Use Types Packs/Day Years Used Date Smoking Tobacco: Never Passive Smoke Exposure: Never Smokeless Tobacco: Never Alcohol Use Standard Drinks/Week Comments No 0 (1 standard drink = 0.6 oz pur e alcohol) [facility] Utilities Answer Date Recorded In the past 12 months has [employer], gas, oil, or water [employer] threatened to shut off services in your [...] and heating? Not hard at all 10/04/2024 [facility] of Occupat ional Health - Occupational Stress [...] or equivalent Patient declined 10/04/2024 Preferred Language Kazakh 10/04/2024 PHQ-2 Answer Date Recorded Patient Health [...] Description 10/07/2025 8:00 AM EST Office Visit [facility] BARI[facility]GERY [address] [facility] [address] [place] [address] Dejah Beltran APRN [address] [address] 11/19/2025 8:30 AM EDT Office Visit [facility] [address] [facility] [address] [place] [id number] Jerman Bradford MD [address] [facility] [address] [place] [address] documented as of this encounter Visit Diagnoses Not on filedocumented in this encounter Care Teams Lotteries Agent Relationship Specialty Start Date End Date Linda Fraire, MARZIPAN MAKER [address] [facility] [address] [place] [address] PCP - General Family Medicine 12/27/23 documented as of this encounter
--- OUTSIDE RECORDS SUMMARY | 2025-09-10 12:48 | XMS_ITS | Referral Summary ---
Author Organization [facility] ([place], [place], [place], [place], [place]) Address [address] [place] [address] Care Team Providers Care Residential Insurance Inspector Name Role Phone Jose Miller MD Primary Care Provider [phone] Allergies No known active allergies Medications gabapentin [...] Date Alfredo rded Speak language other than Upper Sorbian at home Not on file 09/29/2023 Want [...] 11/28/2024 2:02 PM EDT Plan of Treatment Not on file Procedures Procedure Name Priority Date/Time Associated Diagnosis [...] - 07/05/2022 9:07 AM EDT Performed at: - [facility] [place] [address] Polysomnography Technologist: Elmer Grimaldo PhD, Phone: [phone] us Claudio Martínez MD LAB BLOOD ORDERABLES Final Res ult Performing Organization Address City/State/[facility] Co de Phone Number [facility] from Last 3 Months or Most Recently Relevant to Health Maintenance Insurance [facility] MEDICARE PPO Care Teams Residential Insurance Inspector Relationship Specialty Start Date End Date Jose Miller MD [address] [place] [address] PCP - General Adolescent Medicine 11/14/24
--- OUTSIDE RECORDS SUMMARY | 2025-09-10 12:48 | XMS_ITS | Clinical Summary ---
Author Organization [facility] Address [address] [place] [address] Care Team Providers Care Chief Order Dispatcher Name Role Phone Neal Polk MD Unavailable [phone] Jose Miller MD Primary Care Provider [phone] Allergies No known active allergies Medications baclofen (Lioresal) 20 MG tablet Take 1 tablet (20 mg) by mouth 4 (four) times a day if needed for muscle spasms. 3 Active buPROPion XL (Wellbutrin XL) 300 MG 24 hr tablet Take 1 tablet (300 mg) by mouth 1 (one) time each day in the morning. 3 Active citalopram (CeleXA) 40 MG tablet Take 1 tablet (40 mg) by mouth 1 (one) time each day in the morning. 3 Active metFORMIN (Glucophage) 500 MG tablet Take 1 tablet (500 mg) by mouth 2 (two) times a day with meals. 3 Active metoprolol tartrate (Lopressor) 50 MG tablet Take 1 tablet (50 mg) by mouth 2 (two) times a day. 3 Active omeprazole (PriLOSEC) [address] capsule Take 1 capsule (40 mg) by mouth 1 (one) time each day in the morning. 3 Active simvastatin (Zocor) 40 MG tablet Take 1 tablet (40 mg) by mouth every night. 3 Active multivitamin-iro y-xvymhuae-kczrz acid (Centrum) chewable tablet 1 (one) time each day at the same time. Active cholecalciferol (Vitamin D3) 25 MCG (1000 UT) tablet Take 1 tablet (1,000 Units) by mouth every night. Active gabapentin (Neurontin) 800 MG tabletIndication s:Multiple sclerosis,Ataxic gait determined by examination Take 1 tablet (800 mg) by mouth 3 (three) times a day. 30 tablet 3 Active FeroSul 325 (65 Fe) MG tablet Take 1 tablet (325 mg) by mouth every other day. Take 1 tablet by mouth on Mondays, Wednesdays, and Fridays. 3 Active cyanocobalamin 100 MCG tablet Take 1 tablet (100 mcg) by mouth 1 (one) time each day. Active oxyCODONE (Roxicodone) 5 MG immediate release tablet Take 1 tablet (5 mg) by mouth every 4 (four) hours if needed for moderate pain or severe pain. 40 tablet 3 Active Additional Information Patient not taking.Reported on 09/20/2023 prochlorperazine (Compazine) 5 MG tablet Take 1 tablet (5 mg) by mouth 3 (three) times a day before meals. 30 tablet 3 Active Additional Information Patient not taking.Reported on 09/20/2023 senna-docusate (Karly-Colace) 8.6-50 MG tablet Take 1 tablet by mouth 2 (two) times a day. 60 tablet 3 Active Additional Information Patient not taking.Reported on 09/20/2023 polyethylene glycol (Miralax) 17 g packet Take 17 g by mouth 1 (one) time each day. 14 packet 3 Active Additional Information Patient not taking.Reported on 09/20/2023 naloxone (Narcan) 4 mg/0.1 mL nasal spray 1. Give 1 spray in nostril for no/slow breathing or cannot wake after opioid use 2. Call 911 3. Repeat in other nostril if symptoms continue 1 each 4 Active Tradjenta 5 MG tablet Take 1 tablet (5 mg) by mouth 1 (one) time each day. 4 Active gabapentin (Neurontin) 800 MG tablet Take 1 tablet (800 mg) by mouth 1 (one) time each day. Active Hospital, Clinic, or Other Facility Administered Medication Ordered Dose Route Frequency Start Date End Date Status promethazine (Phenergan) injection 25 mgIndications:Nausea 25 mg IM Once 04/12/2023 Acti ve Active Problems Problem Noted Date Diagnosed Date Dysrhythmias 09/04/2023 Gastroesophageal reflux disease 09/04/2023 Acute right-sided low back pain with right-sided sciatica 09/01/2023 Non-insulin dependent type 2 diabetes mellitus 1 11/02/2022 Primary hypertension 09/01/2023 Other hyperlipidemia 09/01/2023 Obesity (BMI 30-39.9) 09/01/2023 Midline low back pain with b ilateral sciatica, unspecified chronicity 09/01/2023 Pain from implanted hardware 09/01/2023 S/P lumbar spinal fusion 08/29/2023 Spondylolisthesis of lumbar region 03/29/2023 Spinal stenosis of lumbar re gion with neurogenic claudication 03/29/2023 Spondylolisthesis at L4-L5 level 03/03/2023 Encounters Date Type Department Care Team Description 08/27/2025 Telephone [facility] [address] [place] [address] David Reveles MD 08/26/2025 Orders Only [facility] [address] [place] [address] David Reveles MD S/P lumbar spinal fusion (Primary Dx) 08/20/2025 Travel from Last 3 Months Immunizations Immunization Administration Dates Next Due Pneumococcal 20-terra Conj Vaccine 12/29/2022 Pneumococcal Polysaccharide PPV23 02/07/2019 Family History Medical History Relation Name Comments Early natural Father Humberto Vaughn Heart attack Father Humberto Vaughn Arthritis Mother Evon Vaughn Asthma Mother Evon Vaughn Depression Mother Evon Vaughn Diabetes Mother Evon Vaughn Obesity Mother Evon Vaughn Heart attack Paternal Grandfather Anesthesia problems Neg Hx Malig Hyperthermia Neg Hx Relation Name Status Comments Father Humberto Vaughn Mother Evon Vaughn Alive Paternal Grandfather Social History Tobacco Use Types Packs/Day Years Used Date Smoking Tobacco: Never Passive Smoke Exposure: Never Smokeless Tobacco: Never Tobacco Cessation:Counseling Given: Not Answered Alcohol Use Standard Drinks/Week Comments Not Currently [...] place to sleep or slept in a assisted (including now)? No 09/06/2023 CAGE ASSESSMENT Answer [...] drink first t darshana in the morning (EYE-UPPER CUTTER OUT) to steady your nerves or to get rid of a hangover? 0 09/02/2023 CAGE Questionnaire Score 0 023 Utilities Answer Date Recorded In the past 12 months has th [employer], gas, oil, or water company threatened to shut off services in your home? No 09/06/2023 PHQ-2A Answer Date Recorded Depression Risk 0 05/16/2024 Comments No Sex and Gender Information Value Date Recorded Sex Assigned at Female 02/18/2023 9:31 AM EDT Legal Sex Female 8:41 PM EDT Gender Identity Female 02/18/2023 9:31 AM EDT Sexual Orientation Straight 02/18/2023 9: 31 AM EDT Last Filed Vital Signs Vital Sign Reading Time Taken Comments Blood Pressure 113/71 11/27/2024 7:44 AM EDT Pulse 69 11/27/2024 7:44 AM EDT Temperature 36.6 C (97.8 F) 11/27/2024 7:44 AM EDT Respiratory Rate 18 05/16/2024 8:45 AM EDT Oxygen Saturation 97% 11/27/2024 7:44 AM EDT Inhaled Oxygen Concentration - - Weight 86.2 kg (190 lb) 11/27/2024 7:44 AM EDT Height 180.3 cm (5' 11 ) 11/27/2024 7:44 AM EDT Body Mass Index 26.5 11/27/2024 7:44 AM EDT Plan of Treatment Health Maintenance Due Date Last Done Comments [facility] D[facility] 1959 [facility]Medicare Annual Wellness (AWV) 1959 [facility]-/Child/Adol SDOH Screenings 1959 [id number] Vaccine (#1) 1959 Diabetes: Dental Exam 1969 [facility]- SDOH Screenings 1977 [facility]-Adult SDOH Screenings 1977 CT Colonography 2004 Colonoscopy 2004 FIT-DNA 2004 FIT 2004 FOBT 2004 Sigmoidoscopy 2004 [facility]-Colorectal Cancer Screening 2004 [facility]-Breast Cancer Screening 2009 [facility]-RSV Vaccine: 60+ Years or (1 - Risk 50-74 years 1-dose series) 2009 [facility]-Zoster Vaccines (2 of 2) 03/27/2024 01/31/2024 [facility]-Diabetes: Hemoglobin A1C 12/10/2024, 09/01/2023, 03/22/2023 [facility]-Influenza Vaccine (#1) 2025 [facility]-Depression Screening 07/12/2025 07/12/2024, 01/2024 [facility]-DTaP,Tdap,and Td Vaccines (2 - Td or Tdap) 01/30/2034 01/31/2024 [facility]-Pneumococcal Vaccine: 50+ Years Completed 12/29/2022, 02/07/2019 [facility]-Hepatitis C Screening Completed 04/29/2024 [facility]-Obesity Intervention Completed 025, 07/12/2024, 05/27/2024, Additional history exists HPV Vaccines (No Doses Required) Completed [facility]-HIB Vaccines Aged Out No longer e ligible based on patient's age to complete this topic [facility]-Hepatitis A Vaccines Aged Out No longer eligible based on patient's age to complete this topic [facility]-IPV Vaccines Aged Out No longer e ligible based on patient's age to complete this topic [facility]-Rotavirus Vaccines Aged Out No lo nger eligible based on patient's age to complete this topic Medical Devices Implanted Type Area Sql Developer Dba Device Identifier Shelf Expiration Date Model / Serial / Lot Screw 5.5mm Viper Ti Fen Crtcl Polyax 7mm X 45mm - S. - [id number] Implanted:Qty: 2 on 09/05/2023 by David Reveles MD at [facility] Screw N/A: Spine Lumbar [employer] [id number] 09/05/2024 [id number] / . / Screw 5.5mm Viper Ti Fen Crtcl Polyax 6mm X 50mm - [id number] Implanted:Qty: 2 on 03/29/2023 by David Reveles MD at [facility] N/A: Spine Lumbar [employer] [id number] 03/29/2023 [id number] / / Screw 5.5mm Viper Ti Fen Crtcl Polyax 7mm X 50mm - [id number] Implanted:Qty: 4 on 03/29/2023 by David Reveles MD at [facility] N/A: Spine Lumbar [employer] LP-[id number] 03/29/2023 [id number] / / Single Inner Setscrew - [id number] Implanted:Qty: 6 on 03/29/2023 by David Reveles MD at [facility] N/A: Spine Lumbar [employer] [id number] 03/29/2023 [id number] / / Post Ibf Ui H 10mm 8deg 22/9 - [id number] Implanted:Qty: 1 on 03/29/2023 by David Reveles MD at [facility] N/A: Spine Lumbar [employer] [id number] 09/10/2025 [id number] / / [id number] Post Ibf Ui H 10mm 8deg 22/9 - [id number] Implanted:Qty: 1 on 03/29/2023 by David Reveles MD at [facility] N/A: Spine Lumbar [employer] [id number] 06/10/2026 [id number] / / [id number] Pre-Lordosed Alfa W/ Line 65mm - [id number] Implanted:Qty: 2 on 03/29/2023 by David Reveles MD at [facility] N/A: Spine Lumbar [employer] [id number] 03/29/2023 [id number] / / Post Ibf Ui H 10mm 8deg 22/9 - [id number] Implanted:Qty: 2 on 03/29/2023 by David Reveles MD at [facility] N/A: Spine Lumbar [employer] [id number] / / [id number] Graft Vivigen 10cc - [id number] Implanted:Qty: 1 on 03/30/2023 by David Reveles MD at [facility] N/A: Spine Lumbar [facility]-[id number] 02/27/2024 [id number] / / [id number] Screw 5.5mm Viper Ti Fen Crtcl Polyax 8mm X 50mm - S. - [id number] Implanted:Qty: 2 on 09/05/2023 by David Reveles MD at [facility] N/A: Spine Lumbar [employer] LP-[id number] 09/05/2024 [id number] / . / Single Inner Setscrew - Sna - [id number] Implanted:Qty: 8 on 09/05/2023 by David Reveles MD at [facility] N/A: Spine Lumbar [employer] [id number] 09/05/2023 [id number] / NA / NA Alfa 5.5 Expedium Ti Prelordosed 105mm - Sna - [id number] Implanted:Qty: 2 on 09/05/2023 by David Reveles MD at [facility] N/A: Spine Lumbar [employer] LP-[id number] 09/05/2023 [id number] / NA / NA Graft Vivigen 5cc - [id number] - [id number] Implanted:Qty: 1 on 09/05/2023 by David Reveles MD at [facility]-[id number] 07/05/2025 -[id number] / [id number] / [id number] Procedures Procedure Name Priority Date/Time Associated Diagnosis Comments HEPATITIS C ANTIBODY - ED W/REFLEX TO HCV QUANT PCR STAT 04/29/2024 2:47 PM EDT HEMOGLOBIN A1C Add-On 09/01/2023 9:08 PM EST from Last 3 Months or Most Recently Relevant to Health Maintenance Results * Hepatitis C Antibody - ED (04/29/2024 2:47 PM EDT) Hepatitis C Antibody Negative Negative 04/29/2024 6:23 PM EDT [facility] Blood Venous blood specimen / Unknown Venipuncture / Unknown 04/29/2024 2:47 PM EDT 04/29/2024 3:26 PM EDT Stefani ALMAZAN LAB BLOOD ORDERABLES Final Re sult [facility] [address] [place] [address] * (ABNORMAL) Hemoglobin A1c (09/01/2023 9:08 PM EST) Hemoglobin A1c 7.6(H) <5.7 % 09/01/2023 10:55 PM EST [facility] Blood Venous blood specimen / Unknown 09/01/2023 9:08 PM EST 09/01/2023 9:18 PM EST Narrative [facility] - 09/01/2023 10:55 PM EST HA1C Interpretive Data: Diagnosis of Diabetes: Diabetic > or = 6.5% Pre-diabetic 5.7 to 6.4% Non-diabetic < or = 5.6% Glycemic Targets for Type I and Type II Diabetics: Non- Adults <7.0% Adults <6.0% Children and Adolescents <7.5% Source: [place] [employer] Association. Standards of medical care in diabetes,2017. Diabetes Care.2017:40 (suppl 1):S1-S135. HbA1c assay performed by an ion-exchange chromatography method that is certified traceable to the DCCT. Leesa Jefferson APRN LAB BLOOD ORDERABLES Final Result Performing Organization Address City/[facility] Co de Phone Number [facility] [address] [place] [address] from Last 3 Months or Most Recently Relevant to Health Maintenance Insurance [facility]IC[facility] Advance Directives * Full Code (Latest Code Status on File) Date Activated Date Inactivated Comments 09/01/2023 10:44 PM 09/08/2023 6:52 PM Question Answer Comments Patient has decision-making capacity? Yes * Full Code Date Activated Date Inactivated Comments 03/29/2023 7:59 AM 04/01/2023 7:52 PM Question Answer Comments Patient has decision-making capacity? Yes Care Teams Chief Order Dispatcher Relationship Specialty Start Date End Date Jose Miller MD [facility] [address] [address] PCP - General Internal Medicine 01/03/23 Neal Polk MD [address] [facility] [address] [place] [address] Surgeon Neurosurgery 01/03/23
--- OUTSIDE RECORDS SUMMARY | 2025-09-10 12:48 | XMS_ITS | Encounter Summary ---
Author Organization [facility] Address [address] [place] [address] Care Team Providers Care Sewer System Supervisor Name Role Phone YeeLinda APRN Primary Care Provid er Encounter Details Date Type Department Care Team (Latest Contact Info) Description 08/13/2025 Travel Social History Tobacco Use Types Packs/Day Years Used Date Smoking Tobacco: Never Passive Smoke Exposure: Never Smokeless Tobacco: Never Alcohol Use Standard Drinks/Week Comments No 0 (1 standard drink = 0.6 oz pur e alcohol) [facility] Utilities Answer Date Recorded In the past 12 months has [employer], gas, oil, or water [employer] threatened to shut off services in your [...] and heating? Not hard at all 10/04/2024 [facility] [place] of Occupat ional Health - Occupational Stress [...] or equivalent Patient declined 10/04/2024 Preferred Language Solomon Islander 10/04/2024 PHQ-2 Answer Date Recorded Patient Health [...] Description 10/07/2025 8:00 AM EST Office Visit [facility] SURGERY [address] [facility] [address] [place] [address] Dejah Beltran APRN [address] [facility] [address] [place] [address] 11/19/2025 8:30 AM EDT Office Visit [facility] NEUROLOGY [address] [facility] [address] [place] [address] Jerman Bradford MD [address] [facility] [address] [place] [address] documented as of this encounter Visit Diagnoses Not on filedocumented in this encounter Care Teams Sewer System Supervisor Relationship Specialty Start Date End Date Linda Fraire, MATHEMATICS PROFESSOR [address] [facility] [address] [place] [address] PCP - General Family Medicine 12/27/23 documented as of this encounter
--- OUTSIDE RECORDS SUMMARY | 2025-09-10 12:48 | XMS_ITS | Encounter Summary ---
[facility] [address] [place] [address] Care Team Providers Care Skip Locator Name Role Phone Yee Linda Alba DHALIWAL Primary Care Provid er Encounter Details Date Type Department Care Team (Late st Contact Info) Description 04/10/2025 Results Follow-Up [facility] BARIATRIC SURGERY [address] [place] [address] Elver Sim APRN [address] [place] [address] Social History Tobacco Use Types Packs/Day Years Used Date Smoking Tobacco: Never Passive Smoke Exposure: Never Smokeless Tobacco: Never Alcohol Use Standard Drinks/Week Comments No 0 (1 standard drink = 0.6 oz pur e alcohol) [facility] Utilities Answer Date Recorded In the past 12 months has [employer], gas, oil, or water [employer] threatened to shut off services in your [...] and heating? Not hard at all 10/04/2024 [facility] [place] of Occupat ional Health - Occupational Stress [...] or equivalent Patient declined 10/04/2024 Preferred Language Slovenian 10/04/2024 PHQ-2 Answer Date Recorded Patient Health [...] Description 10/07/2025 8:00 AM EST Office Visit [facility] BARIATRIC SURGERY [address] [facility] [address] [place] [address] Dejah Beltran APRN [address] [address] 11/19/2025 8:30 AM EDT Office Visit [facility] [address] [facility] [address] [place] [address] Jerman Bradford MD [address] [facility] [address] [place] [address] documented as of this encounter Visit Diagnoses Not on filedocumented in this encounter Care Teams Skip Locator Relationship Specialty Start Date End Date Linda Fraire, WASH HOUSE WORKER [address] [facility] [address] [place] [address] PCP - General Family Medicine 12/27/23 documented as of this encounter
--- NOTE | 2025-09-10 12:57 | CT_ITS ---
FINAL REPORT TECHNIQUE: Thin section axial images are obtained through the abdomen and pelvis after intravenous contrast. Reconstruction images were obtained from the axial data. Exam was performed using dose reduction techniques. CLINICAL HISTORY: RLQ/ABDOMINAL PAIN FINDINGS: LUNG BASES: There is a 5 mm right lower lobe pulmonary nodule seen on series 2, image 1. Lungs are otherwise clear. Heart size is normal. LIVER: Homogeneous. No focal lesion. GALLBLADDER/BILIARY SYSTEM: Gallbladder is present. No gallstones. No biliary dilatation. SPLEEN: Unremarkable. PANCREAS: Unremarkable. ADRENALS: Unremarkable. KIDNEYS/URETERS/BLADDER: No hydronephrosis, renal mass, or renal stone. Unremarkable urinary bladder. 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 No small bowel obstruction or dilatation. There is an appendicolith at the orifice of the appendix. There is dilatation of the proximal appendix and base of the cecum consistent with acute appendicitis. There is no evidence of perforation or abscess. Remaining GI tract is without acute abnormality. PELVIC ORGANS: Unremarkable for age. LYMPH NODES/RETROPERITONEUM/MESENTERY: No lymphadenopathy. No abdominal aortic aneurysm. ABDOMINAL WALL: The abdominal wall is intact. FREE FLUID: Small amount of pelvic free fluid. BONES: No acute osseous abnormality. IMPRESSION: Findings consistent with acute appendicitis without findings of abscess or perforation. There appears to be an appendicolith obstructing the orifice of the appendix. Reviewed, Interpreted and Dictated by Danitza Lopes MD Transcribed by Rukhsana Green Authenticated and [facility] [place]
[2025-09-10 12:59] LABS: Hematocrit 34.8 % (37.0-47.0); Hemoglobin 11.4 g/dL (12.2-16.2); Immature Granulocytes % 0.3 %; Mean Corpuscular HGB Conc 32.8 g/dL (31.8-35.4); Mean Corpuscular Hemoglobin 31.2 pg (27.0-31.2); Mean Corpuscular Volume 95.3 fl (81-99); Nucleated Red Blood Cells % 0 %; Platelet Count 188 K/mm3 (142-424); Red Blood Count 3.65 M/mm3 (4.20-5.40); Red Cell Distribution Width-SD 42.1 fL; White Blood Count 7.8 K/mm3 (4.8-10.8)
[2025-09-10 13:44] LABS: Albumin Level 4.1 g/dl (3.5-5.0); Chloride 106 mmol/L (98-107); Sodium 140 mmol/L (136-145)
[2025-09-10 13:45] LABS: Potassium 4.3 mmoL/L (3.5-5.1)
[2025-09-10 13:47] LABS: Alanine Aminotransferase 59 U/L (12-78); Anion Gap 10.3 mEq/L (5-15); Aspartate Amino Transferase 42 U/L (14-36); Blood Urea Nitrogen 14 mg/dl (7-17); Carbon Dioxide 28 mmol/L (22.0-30.0); Creatinine,Serum 0.80 mg/dl (0.52-1.04); Estimated Glomerular Filt Rate 72 ml/min (>60); GFR (African American) 87 ML/MIN (>60)
[2025-09-10 13:48] LABS: Albumin/Globulin Ratio 2.3 (1.1-1.8); Alkaline Phosphatase 75 U/L (38-126); Bilirubin,Total 0.7 mg/dl (0.2-1.3); Calcium 9.6 mg/dl (8.4-10.2); Globulin 1.8 g/dL (1.3-3.2); Glucose 88 mg/dl (74-100); Total Protein,Serum 5.9 g/dl (6.3-8.2)
[2025-09-10] MEDS: SODIUM CHLORIDE 0.9% 10ML SYR (RAD ONLY) 10 ML IV (14:06)
[2025-09-10] MEDS: IOPAMIDOL-370 (76%);100ML BOTTLE 75 ML IV (14:06)
== END 2025-09-10 23:59 | disposition home or self-care (01) ==
LOC: RAD 12:45
PROVIDERS: PCP Nurse Practitioner Family; Visit Provider Nurse Practitioner Family
DX: R93.5 Abnormal findings on diagnostic imaging of other abdominal regions, including retroperitoneum (principal); R10.31 Right lower quadrant pain
CPT/HCPCS: 36415; 74177; 80053; 85025; Q9967